=== PATIENT | female | born 1985 | race Caucasian/White ===

== ENCOUNTER 2020-11-20 09:32 | Emergency (ER) | payer OTHER, SELFPAY ==
[2020-11-20] VITALS (8 sets, daily range): BP systolic 122–164; BP diastolic 76–104; PULSE 69–110; RESP 15–20; TEMP 36.6; O2SAT 97–100
--- NOTE | 2020-11-20 09:30 | ECG_ITS ---
APPROVED REPORT Exam: Resting ECG HR:92 bpm ECG Measurements Heart Rate 92 AXES IL 108 P 67 QRSd 74 QRS 47 QT 350 T 48 QTc 432 Conclusion Sinus rhythm with short IL Junctional ST depression, probably normal Borderline ECG Electronically signed by : Bernabe Chery, 11/21/2020 08:54:39
--- NOTE | 2020-11-20 09:37 | XR_ITS ---
PROCEDURE: XR CHEST 2V CLINICAL HISTORY: chest pain COMPARISON: No exams were available for comparison FINDINGS: The cardiomediastinal silhouette and pulmonary vascularity are within normal limits. The lungs are clear without infiltrates, suspicious nodules, or pleural effusions. No acute bony abnormalities. IMPRESSION: No acute findings. Dictated by: Shahid Goodwin MD 11/20/2020 09:57 Shahid Goodwin MD in [place] 11/20/2020 09:57
--- NOTE | 2020-11-20 09:38 | HMH.EDCP ---
ED Disposition Clinical Impression: Atypical pneumonia, Palpitations Disposition: Home, Self-Care Condition on Discharge: Good Instructions: DI for Atypical Chest Pain, DI for Palpitations Prescriptions: predniSONE [Prednisone 20mg Tab] 20 mg PO DAILY #5 tab Transmission Status: [facility] by [facility] Azithromycin [Z-Oli 250mg Tab] 250 mg PO DIRECTED #6 tab [facility]: [facility] Referrals: Timmy Figueroa MD [Staff Physician] - PCP,No [Primary Care Provider] - Time of Disposition: 12:15 - Critical Care Critical Care Time: No Attestation: On , the high probability of a clinically significant, sudden or life threatening deterioration of the following system(s) required my full and direct attention, intervention and personal management. The time I documented below is in addition to time spent performing reported procedures but includes the following listed in this critical care notation. Medical Decision Making - Medical Records Medical records reviewed: Yes: I reviewed the patient's medical records. - Judah Inquiry Pt receiving controlled substance: No Vital Signs: 11/20/20 09:33 11/20/20 10:01 11/20/20 10:30 Temperature 97.8 F Temperature Source Oral Pulse Rate Pulse Rate [Left Radial] 110 H 78 74 Respiratory Rate 20 18 16 Blood Pressure Blood Pressure [Right Arm] 164/104 H 129/80 122/76 Blood Pressure Mean [Right Arm] 124 96 91 Blood Pressure Source Blood Pressure Source [Right Arm] Automatic Cuff Blood Pressure Position Blood Pressure Position [Right Arm] Sitting 02 Sat by Pulse Oximetry 99 97 98 Oxygen Delivery Method Room Air Room Air 11/20/20 11:30 11/20/20 12:00 11/20/20 12:30 Temperature Temperature Source Pulse Rate Pulse Rate [Left Radial] 69 77 78 Respiratory Rate 18 Blood Pressure Blood Pressure [Right Arm] 126/78 130/95 H Blood Pressure Mean [Right Arm] 94 106 Blood Pressure Source Blood Pressure Source [Right Arm] Blood Pressure Position Blood Pressure Position [Right Arm] 02 Sat by Pulse Oximetry 100 98 98 Oxygen Delivery Method Room Air 11/20/20 13:00 11/20/20 13:29 Temperature 97.8 F Temperature Source Oral Pulse Rate 81 Pulse Rate [Left Radial] 76 Respiratory Rate 15 Blood Pressure 134/94 H Blood Pressure [Right Arm] 134/94 H Blood Pressure Mean [Right Arm] 107 Blood Pressure Source Automatic Cuff Blood Pressure Source [Right Arm] Blood Pressure Position Sitting Blood Pressure Position [Right Arm] 02 Sat by Pulse Oximetry 99 Oxygen Delivery Method Room Air - Lab Data Lab Results 11/20/20 09:38: WBC 7.6, RBC 4.44, Hgb 12.9, Hct 42.3, MCV 95.1, MCH 29.0, MCHC 30.5 L, RDW 13.4, Plt Count 222, MPV 8.7, Neut % (Auto) 57.7, Lymph % (Auto) 32.0, [place] % (Auto) 6.9, Eos % (Auto) 2.6, Baso % (Auto) 0.8, Neut # (Auto) 4.4, Lymph # (Auto) 2.4, [place] # (Auto) 0.5, Eos # (Auto) 0.2, Baso # (Auto) 0.1 11/20/20 09:38: D-Dimer 0.72 H 11/20/20 09:38: Sodium 140, Potassium 3.7, Chloride 110 H, Carbon Dioxide 24, Anion Gap 9.7, BUN 13, Creatinine 0.60, Estimated Creat Clear 161, Estimated GFR 112, Est GFR ( Amer) 136, Glucose 91, Calcium 8.7, Troponin I < 0.01, TSH 0.66 11/20/20 12:15: Troponin I < 0.01 Result diagrams: 11/20/20 09:38 11/20/20 09:38 Orders (Tests/Meds): ED MEDICATIONS Discontinued Medications Generic Name Dose Route Start Last Admin Trade Name Ted PRN Reason Stop Dose Admin Aspirin 324 mg 11/20/20 09:36 11/20/20 09:51 Aspirin 81mg Chewable Tablet PO 11/20/20 09:37 324 mg ONCE ONE Administration Iopamidol 70 ml 11/20/20 11:31 11/20/20 11:32 Iopamidol-370 (76%);100ml Bottle IV 11/20/20 11:32 70 ml ONCE ONE Administration Nitroglycerin 0.4 mg 11/20/20 09:36 Nitroglycerin 0.4mg Sl Tablet SL 11/21/20 09:37 Q5MINP PRN Chest Pain Sodium Chloride 50 ml 11/20/20 11:31 11/20/20 11:
[2020-11-20 09:55] LABS: Basophils # 0.1 K/mm3 (0-0.2); Basophils % 0.8 % (0.1-2.0); Eosinophils # 0.2 K/mm3 (0.0-0.4); Eosinophils % 2.6 % (0.1-12.0); Hematocrit 42.3 % (37.0-47.0); Hemoglobin 12.9 g/dL (12.2-16.2); Lymphocytes # 2.4 K/mm3 (0.7-4.5); Mean Corpuscular HGB Conc 30.5 g/dL (31.8-35.4); Mean Corpuscular Volume 95.1 fl (81-99); Mean Platelet Volume 8.7 fl (7.4-10.4); Monocytes # 0.5 K/mm3 (0.1-1.0); Monocytes % 6.9 % (1.7-9.3); Neutrophils # 4.4 K/mm3 (1.8-7.8); Neutrophils % 57.7 % (37.0-80.0); Platelet Count 222 K/mm3 (142-424); Red Blood Count 4.44 M/mm3 (4.20-5.40); Red Cell Distribution Width 13.4 % (11.5-17.5); White Blood Count 7.6 K/mm3 (4.8-10.8)
[2020-11-20 10:07] LABS: Anion Gap 9.7 mEq/L (5-15); Blood Urea Nitrogen 13 mg/dl (7-17); Calcium 8.7 mg/dl (8.4-10.2); Carbon Dioxide 24 mmol/L (22.0-30.0); Chloride 110 mmol/L (98-107); Creatinine Clearance Estimated 161 mL/min (50-200); Estimated Glomerular Filt Rate 112 ml/min (>60); GFR (African American) 136 ML/MIN (>60); Glucose 91 mg/dl (74-100); Potassium 3.7 mmoL/L (3.5-5.1); Sodium 140 mmol/L (136-145)
[2020-11-20 10:12] LABS: D-Dimer 0.72 ug/mL (0.0-0.5)
[2020-11-20 10:22] LABS: Troponin I < 0.01 ng/ml (0.00-0.034)
[2020-11-20 10:39] LABS: Thyroid Stimulating Hormone 0.66 uIU/mL (0.465-4.68)
--- NOTE | 2020-11-20 10:39 | CT_ITS ---
PROCEDURE: CT ANGIO CHEST CLINCIAL INDICATION: elevated d-dimer, short of breath Chest pain and shortness of air COMPARISON: No exams were available for comparison TECHNIQUE: IV Contrast: 70ML Isovue 370 Axial images obtained with sagittal and coronal reformats. All CT scans at the facility use one or more dose reduction, viz: automated exposure control, ma/kV adjustment per patient size (including targeted exams where dose is matched to indication, i.e. head), or iterative reconstruction technique. FINDINGS: HEART AND MEDIASTINAL STRUCTURES: No evidence of pulmonary embolus, aortic aneurysm, or aortic dissection.. There are few small mediastinal lymph nodes. LUNGS AND PLEURAL SPACES: Minimal patchy density is present in the right upper lobe and right lower lobe centrally. No effusions. No lobar consolidation. BONY STRUCTURES: Mild degenerative change thoracic spine UPPER ABDOMEN: Unremarkable. ADDITIONAL FINDINGS: No other significant abnormalities. IMPRESSION: 1. No evidence of pulmonary embolus, aortic aneurysm, or aortic dissection. 2. Patchy atelectasis or infiltrate in the right upper lobe and right lower lobe. Dictated by: Shahid Goodwin MD 11/20/2020 12:01 Shahid Goodwin MD in [place] 11/20/2020 12:01
--- NOTE | 2020-11-20 11:34 | PC.NURSE ---
PATIENT GONE FOR CT SINCE 1100
--- NOTE | 2020-11-20 12:41 | PC.NURSE ---
Patient called RN to room, states she is having black floater in right eye now . Patient also concerned that she is going to be discharged while still having chest pain, MD Woodson notified with patients concerns.
[2020-11-20 12:53] LABS: Troponin I < 0.01 ng/ml (0.00-0.034)
--- NOTE | 2020-11-20 13:01 | PC.NURSE ---
MD Woodson at bedside discussing care.
== END 2020-11-20 13:30 | disposition home or self-care (01) ==
PROVIDERS: Emergency Provider Emergency Medicine
DX: J18.9 Pneumonia, unspecified organism (principal); Z20.822 Contact with and (suspected) exposure to COVID-19; R00.2 Palpitations
CPT/HCPCS: 71046; 71275; 80048; 84443; 84484; 85025; 85378; 93005; 99283; Q9967

== ENCOUNTER → 2020-11-21 12:20 | Outpatient (CLI) | payer OTHER, SELFPAY | PROVIDERS: Visit Provider Urology | DX: Z20.822 Contact with and (suspected) exposure to COVID-19 (principal); R06.00 Dyspnea, unspecified; R07.89 Other chest pain; R00.2 Palpitations; J18.9 Pneumonia, unspecified organism | CPT/HCPCS: 93270; U0003 ==

== ENCOUNTER 2020-11-29 23:34 | Emergency (ER) | payer OTHER, SELFPAY ==
[2020-11-29 23:35] VITALS: BP 124/93; PULSE 100; RESP 24; TEMP 36.6; O2SAT 99; BMI 29.2
--- NOTE | 2020-11-29 23:52 | XR_ITS ---
PROCEDURE: XR CHEST 2V CLINICAL HISTORY: soa Shortness of breath COMPARISON: CR XR CHEST 2V from 11/20/[address] ANGIO CHEST from 11/20/2020 FINDINGS: The cardiomediastinal silhouette and pulmonary vascularity are within normal limits. The lungs are clear without infiltrates, suspicious nodules, or pleural effusions. There is an electronic device along the left chest wall superiorly. No acute bony findings. IMPRESSION: No acute findings. Dictated by: Shahid Goodwin MD 11/30/2020 07:30 Shahid Goodwin MD in [place] 11/30/2020 07:30
--- NOTE | 2020-11-29 23:59 | HMH.EDSOB ---
ED Disposition Clinical Impression: Asthma with exacerbation Qualifiers: Asthma severity: moderate Asthma persistence: unspecified Qualified Code(s): J45.901 - Unspecified asthma with (acute) exacerbation Disposition: Home, Self-Care Condition on Discharge: Good Instructions: DI for Shortness of Breath Additional Instructions: fluids and use meds and see pcp for follow up Prescriptions: predniSONE [Prednisone 20mg Tab] 20 mg PO BID #10 tab Transmission Status: Pending to [facility] Referrals: PCP,No [Primary Care Provider] - - Critical Care Critical Care Time: No Attestation: On 11/29/20, the high probability of a clinically significant, sudden or life threatening deterioration of the following system(s) required my full and direct attention, intervention and personal management. The time I documented below is in addition to time spent performing reported procedures but includes the following listed in this critical care notation. Medical Decision Making - Medical Records Medical records reviewed: Yes: I reviewed the patient's medical records. - Judah Inquiry Pt receiving controlled substance: No Vital Signs: 11/29/20 23:35 Temperature 97.8 F Temperature Source Oral Pulse Rate [Right] 100 H Respiratory Rate 24 Blood Pressure [Right Arm] 124/93 H Blood Pressure Mean [Right Arm] 103 02 Sat by Pulse Oximetry 99 Oxygen Delivery Method Room Air - Lab Data Lab results reviewed: Yes: I reviewed the patient's lab results. Lab Results 11/29/20 23:59: WBC 8.5, RBC 4.48, Hgb 13.1, Hct 40.1, MCV 89.7, MCH 29.2, MCHC 32.5, RDW 13.5, Plt Count 198, MPV 8.7, Neut % (Auto) 54.8, Lymph % (Auto) 36.0, [place] % (Auto) 5.9, Eos % (Auto) 2.4, Baso % (Auto) 0.9, Neut # (Auto) 4.7, Lymph # (Auto) 3.1, [place] # (Auto) 0.5, Eos # (Auto) 0.2, Baso # (Auto) 0.1, ESR 16 11/29/20 23:59: Sodium 140, Potassium 3.8, Chloride 108 H, Carbon Dioxide 25, Anion Gap 10.8, BUN 12, Creatinine 0.70, Estimated Creat Clear 134, Estimated GFR 94, Est GFR ( Amer) 114, Glucose 87, Calcium 9.0, Total Bilirubin 0.2, AST 29, ALT 18, Alkaline Phosphatase 101, C-Reactive Protein 5.3 H, Total Protein 7.1, Albumin 4.2, Globulin 2.9, Albumin/Globulin Ratio 1.4, Procalcitonin < 0.030 11/29/20 23:59: Serum HCG, Qual Negative Result diagrams: 11/29/20 23:59 11/29/20 23:59 Orders (Tests/Meds): ED MEDICATIONS Generic Name Dose Route Start Last Admin Trade Name Freq PRN Reason Stop Dose Admin Sodium Chloride 1,000 mls @ 999 mls/hr 11/29/20 23:45 11/30/20 00:06 Sod Chlor 0.9% 1000ml Bag IV 11/30/20 00:45 999 mls/hr .Q1H1M SIS Administration Discontinued Medications Generic Name Dose Route Start Last Admin Trade Name Freq PRN Reason Stop Dose Admin Albuterol/Ipratropium 3 ml 11/29/20 23:52 Albuterol/Ipratropium 3 Ml Neb IH 11/29/20 23:53 ONCE ONE Methylprednisolone Sodium Succinate 125 mg 11/29/20 23:52 11/30/20 00:06 Methylprednisolone Sod Succ 125mg Vial IV 11/29/20 23:53 125 mg ONCE ONE Administration ORDERS Category Date Time Status Chest XR 2 view (NOT portable) [XR chest 2V] Stat Exams 11/29/20 23:52 Ordered - Radiology Data #1 Image(s): Chest Image Reviewed: Yes I reviewed the patient's radiology image Preliminary Findings: Normal/NAD Medical Decision Narrative: improved with resp treatment and labs and xray stable - will d/c on steroids and mdi Resp/SOB HPI - General Chief Complaint: Shortness of Breath/Dyspnea Stated Complaint: SOA Time Seen by Provider: 11/29/20 23:45 Mode of Arrival: Ambulatory Source of Information: Patient, Spouse, Medical Record Limitations: No Limitations Description of Symptoms (Recalled from ER Triage Doc. by RN): pt c/o SOA that has been going on since 11/20 was seen in er and dignosed with pneumonia follow up with cardio. 2 hrs prior to arrival soa became worse - History of Present Illness pt with increased sob tonight w
[2020-11-30 00:05] LABS: Basophils # 0.1 K/mm3 (0-0.2); Basophils % 0.9 % (0.1-2.0); Eosinophils # 0.2 K/mm3 (0.0-0.4); Eosinophils % 2.4 % (0.1-12.0); Hematocrit 40.1 % (37.0-47.0); Hemoglobin 13.1 g/dL (12.2-16.2); Lymphocytes # 3.1 K/mm3 (0.7-4.5); Mean Corpuscular HGB Conc 32.5 g/dL (31.8-35.4); Mean Corpuscular Hemoglobin 29.2 pg (27.0-31.2); Mean Corpuscular Volume 89.7 fl (81-99); Mean Platelet Volume 8.7 fl (7.4-10.4); Monocytes # 0.5 K/mm3 (0.1-1.0); Monocytes % 5.9 % (1.7-9.3); Neutrophils # 4.7 K/mm3 (1.8-7.8); Neutrophils % 54.8 % (37.0-80.0); Platelet Count 198 K/mm3 (142-424); Red Blood Count 4.48 M/mm3 (4.20-5.40); Red Cell Distribution Width 13.5 % (11.5-17.5); White Blood Count 8.5 K/mm3 (4.8-10.8)
[2020-11-30 00:16] LABS: HCG Qualitative, Serum Negative (Negative)
[2020-11-30 00:17] LABS: Alanine Aminotransferase 18 U/L (12-78); Albumin Level 4.2 g/dl (3.5-5.0); Albumin/Globulin Ratio 1.4 (1.1-1.8); Alkaline Phosphatase 101 U/L (38-126); Anion Gap 10.8 mEq/L (5-15); Aspartate Amino Transferase 29 U/L (14-36); Bilirubin,Total 0.2 mg/dl (0.2-1.3); Blood Urea Nitrogen 12 mg/dl (7-17); Carbon Dioxide 25 mmol/L (22.0-30.0); Chloride 108 mmol/L (98-107); Creatinine Clearance Estimated 134 mL/min (50-200); Estimated Glomerular Filt Rate 94 ml/min (>60); GFR (African American) 114 ML/MIN (>60); Globulin 2.9 g/dL (1.3-3.2); Glucose 87 mg/dl (74-100); Potassium 3.8 mmoL/L (3.5-5.1); Sodium 140 mmol/L (136-145); Total Protein,Serum 7.1 g/dl (6.3-8.2)
[2020-11-30 00:23] LABS: C-Reactive Protein 5.3 mg/L (0-4)
[2020-11-30 00:27] LABS: Erythrocyte Sedimentation Rate 16 mm/hr (0-20)
[2020-11-30 00:37] LABS: Procalcitonin < 0.030 ng/mL (0.0-2.0)
[2020-11-30 01:59] VITALS: BP 148/74; PULSE 97; RESP 14; TEMP 36.6; O2SAT 98
== END 2020-11-30 02:01 | disposition home or self-care (01) ==
PROVIDERS: Emergency Provider Emergency Medicine
DX: J45.901 Unspecified asthma with (acute) exacerbation (principal)
CPT/HCPCS: 71046; 80053; 84145; 84703; 85025; 85651; 86140; 96375; 99282

== ENCOUNTER → 2020-12-31 15:59 | Outpatient (CLI) | payer SELFPAY ==
[2020-12-31 16:22] LABS: Basophils # 0.1 K/mm3 (0-0.2); Basophils % 0.8 % (0.1-2.0); Eosinophils # 0.1 K/mm3 (0.0-0.4); Hemoglobin 13.3 g/dL (12.2-16.2); Lymphocytes # 2.3 K/mm3 (0.7-4.5); Lymphocytes % 25.8 % (10-50); Mean Corpuscular HGB Conc 31.6 g/dL (31.8-35.4); Mean Corpuscular Hemoglobin 28.7 pg (27.0-31.2); Mean Platelet Volume 8.6 fl (7.4-10.4); Monocytes # 0.4 K/mm3 (0.1-1.0); Monocytes % 4.7 % (1.7-9.3); Neutrophils # 5.9 K/mm3 (1.8-7.8); Neutrophils % 67.9 % (37.0-80.0); Platelet Count 245 K/mm3 (142-424); Red Blood Count 4.62 M/mm3 (4.20-5.40); Red Cell Distribution Width 13.8 % (11.5-17.5); White Blood Count 8.7 K/mm3 (4.8-10.8)
[2021-01-06 21:15] LABS: D001-IgE D pteronyssinus 1.33 kU/L (Class II); G002-IgE Bermuda Grass <0.10 kU/L (Class 0); G006-IgE Timothy Grass <0.10 kU/L (Class 0); I006-IgE Cockroach, German <0.10 kU/L (Class 0); Immunoglobulin E, Total 729 IU/mL (6-495); M001-IgE Penicillium chrysogen <0.10 kU/L (Class 0); M002-IgE Cladosporium herbarum <0.10 kU/L (Class 0); M003-IgE Aspergillus fumigatus <0.10 kU/L (Class 0); M006-IgE Alternaria alternata <0.10 kU/L (Class 0); T001-IgE Maple/Box Elder <0.10 kU/L (Class 0); T003-IgE Common Silver Birch <0.10 kU/L (Class 0); T006-IgE Cedar, Mountain <0.10 kU/L (Class 0); T007-IgE Oak, White <0.10 kU/L (Class 0); T008-IgE Elm, American <0.10 kU/L (Class 0); T010-IgE Walnut <0.10 kU/L (Class 0); T011-IgE Maple Leaf Sycamore <0.10 kU/L (Class 0); T014-IgE Cottonwood <0.10 kU/L (Class 0); T015-IgE Ash, White <0.10 kU/L (Class 0); T022-IgE Pecan, Hickory <0.10 kU/L (Class 0); T070-IgE White Mulberry <0.10 kU/L (Class 0); W001-IgE Ragweed, Short <0.10 kU/L (Class 0); W011-IgE Thistle, Russian <0.10 kU/L (Class 0); W014-IgE Pigweed, Common <0.10 kU/L (Class 0); W018-IgE Sheep Sorrel <0.10 kU/L (Class 0)
[2021-01-07 15:11] LABS: E072-IgE Mouse Urine 1.83 kU/L (Class III)
== END ==
PROVIDERS: Visit Provider Internal Medicine Pulmonary Disease
DX: J45.909 Unspecified asthma, uncomplicated (principal)
CPT/HCPCS: 36415; 82785; 85025; 86003

== ENCOUNTER → 2022-02-02 09:18 | Outpatient (CLI) | payer OTHER, SELFPAY ==
[2022-02-02 10:13] LABS: Basophils # 0.1 K/mm3 (0-0.2); Basophils % 1.5 % (0.1-2.0); Eosinophils # 0.2 K/mm3 (0.0-0.4); Eosinophils % 3.5 % (0.1-12.0); Hematocrit 41.3 % (37.0-47.0); Hemoglobin 13.4 g/dL (12.2-16.2); Lymphocytes # 1.9 K/mm3 (0.7-4.5); Lymphocytes % 27.8 % (10-50); Mean Corpuscular HGB Conc 32.3 g/dL (31.8-35.4); Mean Corpuscular Volume 89.8 fl (81-99); Mean Platelet Volume 9.4 fl (7.4-10.4); Monocytes # 0.4 K/mm3 (0.1-1.0); Monocytes % 5.3 % (1.7-9.3); Neutrophils # 4.2 K/mm3 (1.8-7.8); Platelet Count 216 K/mm3 (142-424); Red Cell Distribution Width 14.9 % (11.5-17.5); White Blood Count 6.7 K/mm3 (4.8-10.8)
[2022-02-02 10:28] LABS: Alanine Aminotransferase 27 U/L (12-78); Albumin Level 4.2 g/dl (3.5-5.0); Alkaline Phosphatase 96 U/L (38-126); Anion Gap 10.6 mEq/L (5-15); Aspartate Amino Transferase 28 U/L (14-36); Bilirubin,Unconjugated 0.3 mg/dL (0.0-1.1); Blood Urea Nitrogen 10 mg/dl (7-17); Calcium 8.8 mg/dl (8.4-10.2); Carbon Dioxide 26 mmol/L (22.0-30.0); Chloride 106 mmol/L (98-107); Chol/HDL Ratio 3.4 (1-3.5); Cholesterol 235 mg/dl (140-200); Estimated Glomerular Filt Rate 112 ml/min (>60); GFR (African American) 135 ML/MIN (>60); Glucose 94 mg/dl (74-100); HDL Cholesterol 69 mg/dl (40-60); Magnesium 1.9 mg/dl (1.6-2.3); Potassium 4.6 mmoL/L (3.5-5.1); Sodium 138 mmol/L (136-145); Total Protein,Serum 6.8 g/dl (6.3-8.2); Triglycerides 81 mg/dl (30-150); VLDL Cholesterol 16 mg/dL (0-40)
[2022-02-02 10:39] LABS: Direct LDL Cholesterol 150.65 mg/dL (100-129)
[2022-02-02 10:43] LABS: Free T4 (Free Thyroxine) 0.94 ng/dl (0.78-2.19)
[2022-02-02 10:50] LABS: Bilirubin,Total < 0.1 mg/dl (0.2-1.3)
[2022-02-02 10:58] LABS: Thyroid Stimulating Hormone 1.38 uIU/mL (0.465-4.68)
[2022-02-02 12:14] LABS: Bilirubin,Direct 0.1 mg/dl (0.0-0.4)
== END ==
LOC: LAB 09:19
PROVIDERS: Visit Provider Nurse Practitioner Family
DX: R06.00 Dyspnea, unspecified (principal); R07.89 Other chest pain; R00.2 Palpitations
CPT/HCPCS: 36415; 80048; 80061; 80076; 83735; 84439; 84443; 85025

== ENCOUNTER 2022-02-03 08:28 | Emergency (ER) | payer OTHER, SELFPAY ==
[2022-02-03 08:29] VITALS: BP 146/106; PULSE 92; RESP 18; TEMP 36.7; O2SAT 98; BMI 32.5
--- NOTE | 2022-02-03 08:33 | PC.NURSE ---
WARREN Frederick at BS
--- NOTE | 2022-02-03 08:39 | PC.NURSE ---
ED MD at
[2022-02-03 08:42] LABS: Coronavirus 19, PCR Not Detected (NotDetected); Influenza A, PCR Not Detected (NotDetected); Influenza B, PCR Not Detected (NotDetected)
--- NOTE | 2022-02-03 08:47 | HMH.EDGENADL ---
ED Disposition Clinical Impression: Asthma Disposition: Home, Self-Care Condition on Discharge: Good Instructions: Asthma -- Adult Additional Instructions: Please follow-up with your pulmonology team during your next scheduled appointment. 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 Please also take the prednisone starting on 02/06. Please return for any concerning symptoms such as chest pain, difficulty breathing or any other worsening symptoms. Prescriptions: predniSONE [Prednisone 10mg Tab Dose-Pack] 10 mg PO UD DOSE PK #1 predniSONE [Prednisone 10mg Tab Dose-Pack] 10 mg PO UD DOSE PK #1 Prescription Printed Referrals: Provider,Referral, [Primary Care Provider] - - Critical Care Critical Care Time: No Attestation: On 02/03/22, the high probability of a clinically significant, sudden or life threatening deterioration of the following system(s) required my full and direct attention, intervention and personal management. The time I documented below is in addition to time spent performing reported procedures but includes the following listed in this critical care notation. Medical Decision Making - Medical Records Medical records reviewed: Yes: I reviewed the patient's medical records. - Judah Inquiry Pt receiving controlled substance: No Vital Signs: 02/03/22 08:29 02/03/22 10:19 02/03/22 11:04 Temperature 98.1 F Temperature Source Oral Pulse Rate 88 71 Pulse Rate [Right Radial] 92 H Respiratory Rate 18 Blood Pressure Blood Pressure [Right Arm] 146/106 H Blood Pressure Mean [Right Arm] 119 Blood Pressure Source [Right Arm] Automatic Cuff Blood Pressure Position Blood Pressure Position [Right Arm] Sitting 02 Sat by Pulse Oximetry 98 98 99 Oxygen Delivery Method Room Air Room Air Room Air 02/03/22 11:29 Temperature 98.1 F Temperature Source Pulse Rate 66 Pulse Rate [Right Radial] Respiratory Rate 18 Blood Pressure 146/92 H Blood Pressure [Right Arm] Blood Pressure Mean [Right Arm] Blood Pressure Source [Right Arm] Blood Pressure Position Sitting Blood Pressure Position [Right Arm] 02 Sat by Pulse Oximetry Oxygen Delivery Method Room Air - Lab Data Lab results reviewed: Yes: I reviewed the patient's lab results. Lab Results 02/03/22 08:35: SARS-CoV-2 (PCR) Not detected, Influenza A Untype (PCR) Not detected, Influenza Type B (PCR) Not detected 02/03/22 10:34: WBC 6.8, RBC 4.74, Hgb 13.6, Hct 41.8, MCV 88.2, MCH 28.8, MCHC 32.6, RDW 14.9, Plt Count 232, MPV 9.4, Neut % (Auto) 66.0, Lymph % (Auto) 24.8, [place] % (Auto) 3.5, Eos % (Auto) 4.2, Baso % (Auto) 1.4, Neut # (Auto) 4.5, Lymph # (Auto) 1.7, [place] # (Auto) 0.2, Eos # (Auto) 0.3, Baso # (Auto) 0.1 02/03/22 10:34: Sodium 139, Potassium 4.0, Chloride 107, Carbon Dioxide 23, Anion Gap 13.0, BUN 9, Creatinine 0.60, Estimated Creat Clear 173, Estimated GFR 112, Est GFR ( Amer) 135, Glucose 97, Calcium 9.1, Total Bilirubin 0.3, AST 36 D, ALT 36 D, Alkaline Phosphatase 101, Troponin I < 0.01, Total Protein 7.5, Albumin 4.4, Globulin 3.1, Albumin/Globulin Ratio 1.4 Result diagrams: 02/03/22 10:34 02/03/22 10:34 Orders (Tests/Meds): ED MEDICATIONS Discontinued Medications Generic Name Dose Route Start Last Admin Trade Name Freq PRN Reason Stop Dose Admin Albuterol/Ipratropium 1 puff 02/03/22 09:08 02/03/22 09:05 Combivent 20mcg/100mcg Respimat Inhaler 02/03/22 09:09 1 puff ONCE ONE Administration Albuterol/Ipratropium 3 ml 02/03/22 10:24 02/03/22 10:25 Ipratropium/Albuterol 3 Ml Neb 02/03/22 10:25 3 ml ONCE ONE Administration Dexamethasone 10 mg 02/03/22 08:50 02/03/22 09:13 Dexamethasone 1mg/1ml Intensol 10ml Udc (Er) PO 02/03/22 08:51 Not Given ONCE ONE Dexamethasone 10 mg 02/03/22 09:09 02/03/22 09:10 Dexamethasone 4mg Tablet PO 02/03/22 09:10 10 mg ONCE ONE Administration ORDERS
--- NOTE | 2022-02-03 08:48 | XR_ITS ---
PROCEDURE INFORMATION: Exam: XR Chest Exam date and time: 02/03/2022 9:39 AM Age: 36 years old Clinical indication: Shortness of breath; Additional info: Dyspnea TECHNIQUE: Imaging protocol: XR of the chest. Views: 1 view. COMPARISON: CR XR CHEST 2V 11/29/2020 11:57 PM FINDINGS: Lungs: Unremarkable. No consolidation. Pleural spaces: Unremarkable. No pleural effusion. No pneumothorax. Heart/Mediastinum: Unremarkable. No cardiomegaly. Bones/joints: Unremarkable. IMPRESSION: No acute findings.
--- NOTE | 2022-02-03 08:48 | PC.NURSE ---
RT called for inhaler
--- NOTE | 2022-02-03 09:48 | HMH.ITSTN ---
This was not done within 30 minutes because osbaldo was scheduled in mammography until 9:30 and no one else was sent
--- NOTE | 2022-02-03 09:59 | PC.NURSE ---
ED MD at speaking with patient
--- NOTE | 2022-02-03 10:18 | INFXCTL.NOTE ---
Lab is going to come down and draw blood from pt
[2022-02-03 10:19] VITALS: PULSE 84; PULSE 88; O2SAT 98
--- NOTE | 2022-02-03 10:20 | ECG_ITS ---
APPROVED REPORT Exam: Resting ECG HR:74 bpm ECG Measurements Heart Rate 74 AXES DE 149 P 69 QRSd 88 QRS 55 QT 380 T 58 QTc 407 Conclusion SINUS RHYTHM NORMAL ECG UNCONFIRMED REPORT Electronically signed by : Bernabe Chery MD 02/05/2022 10:33:09
--- NOTE | 2022-02-03 10:23 | PC.NURSE ---
patient getting a NEB treatment at this time
--- NOTE | 2022-02-03 10:26 | PC.NURSE ---
RT at BS
[2022-02-03 10:46] LABS: Basophils # 0.1 K/mm3 (0-0.2); Basophils % 1.4 % (0.1-2.0); Eosinophils # 0.3 K/mm3 (0.0-0.4); Eosinophils % 4.2 % (0.1-12.0); Hematocrit 41.8 % (37.0-47.0); Hemoglobin 13.6 g/dL (12.2-16.2); Lymphocytes # 1.7 K/mm3 (0.7-4.5); Lymphocytes % 24.8 % (10-50); Mean Corpuscular HGB Conc 32.6 g/dL (31.8-35.4); Mean Corpuscular Hemoglobin 28.8 pg (27.0-31.2); Mean Corpuscular Volume 88.2 fl (81-99); Mean Platelet Volume 9.4 fl (7.4-10.4); Monocytes # 0.2 K/mm3 (0.1-1.0); Monocytes % 3.5 % (1.7-9.3); Neutrophils # 4.5 K/mm3 (1.8-7.8); Platelet Count 232 K/mm3 (142-424); Red Blood Count 4.74 M/mm3 (4.20-5.40); Red Cell Distribution Width 14.9 % (11.5-17.5); White Blood Count 6.8 K/mm3 (4.8-10.8)
[2022-02-03 10:55] LABS: Blood Urea Nitrogen 9 mg/dl (7-17); Carbon Dioxide 23 mmol/L (22.0-30.0); Chloride 107 mmol/L (98-107); Sodium 139 mmol/L (136-145)
[2022-02-03 10:56] LABS: Alanine Aminotransferase 36 U/L (12-78); Albumin Level 4.4 g/dl (3.5-5.0); Albumin/Globulin Ratio 1.4 (1.1-1.8); Alkaline Phosphatase 101 U/L (38-126); Aspartate Amino Transferase 36 U/L (14-36); Bilirubin,Total 0.3 mg/dl (0.2-1.3); Calcium 9.1 mg/dl (8.4-10.2); Creatinine Clearance Estimated 173 mL/min (50-200); Estimated Glomerular Filt Rate 112 ml/min (>60); GFR (African American) 135 ML/MIN (>60); Globulin 3.1 g/dL (1.3-3.2); Glucose 97 mg/dl (74-100); Total Protein,Serum 7.5 g/dl (6.3-8.2)
[2022-02-03 11:04] VITALS: PULSE 71; O2SAT 99
[2022-02-03 11:08] LABS: Troponin I < 0.01 ng/ml (0.00-0.034)
--- NOTE | 2022-02-03 11:10 | PC.NURSE ---
Dr Christina at BS
--- NOTE | 2022-02-03 11:19 | HMH.PULMCON ---
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 Patient denies any known sick contacts but denies any fevers or chills or productive phlegm. Denies any hemoptysis or chest pain. [facility] History *Have you ever received a pneumonia vaccine?: Yes *Have you received a flu vaccine this season?: Yes Other Surgeries: Yes: No Previous Surgery - *Social History Last grade of school completed: Advanced degree Smoking Status: Never smoker Alcohol Intake: never Alcohol Intake Frequency:: holidays/special occasions only Substance Use Type: denies use *Occupational Status:: employed *Travel in the last 8 weeks: None Family Hx:: Hypertension ROS - Cons Denies anorexia, Denies body ache(s), Denies chills - Eyes Denies change in vision - ENT Reports nasal congestion, Denies difficulty swallowing - Card Reports shortness of breath, Reports shortness of breath with activity - Resp Respiratory: Reports chest congestion, Reports cough, Reports non-productive cough, Reports dyspnea, Reports dyspnea on exertion, Denies excessive phlegm production, Denies cough with sputum production, Reports wheezing - GI Gastrointestingal: Denies: abdominal pain - [place] Musculoskeletal: Denies back pain - Psych Denies thoughts of hurting/killing others, Denies thoughts of hurting/killing yourself Meds Home Medications Medication Instructions Recorded Confirmed Type albuterol sulfate 90 mcg/actuation 1 inh INHALATION QID PRN 90 Days 01/26/22 02/02/22 Rx aerosol inhaler #8.5 g fluticasone 500 mcg-salmeterol 50 1 inh IH BID 90 Days #180 each 01/29/22 02/02/22 Rx mcg/dose blistr powdr for inhalation aspirin 81 mg tablet,delayed 81 mg PO DAILY #30 tab 02/02/22 02/02/22 Rx release atorvastatin 20 mg tablet 20 mg PO DAILY #30 tab 02/02/22 Rx bisoprolol fumarate 5 mg tablet 5 mg PO QDAY #30 tab 02/02/22 02/02/22 Rx predniSONE [Prednisone 10mg Tab 10 mg PO UD DOSE PK #1 02/03/22 Rx Dose-Pack] Allergies Allergy/AdvReac Type Severity Reaction Status Date / Time No Known Allergies Allergy Verified 02/02/22 08:54 Exam - Constitutional Constitutional:: Present: no acute distress, comfortable - HENMT Exam HENMT: Present: normocephalic - Eye Exam Eyes:: Present: normal appearance both eyes and related structures - Neck Exam Neck:: Present: normal visual inspection - Respiratory Exam Respiratory:: Present: able to speak in complete sentences, respiratory distress, wheezing - Cardiovascular Exam Cardiac:: Present: S1, S2 - GI Exam GI:: Present: soft - Skin Exam Skin: Present: warm, no rash - Neurological Exam Neurological: Present: alert, awake, normal cognition - Extremities Exam Extremities: Present: no cyanosis, no clubbing, no edema Internal Medicine - CN: Reslt - Labs CBC & Chem 7: 02/03/22 10:34 02/03/22 10:34 Labs: Short CBC 02/03/22 Range/Units 10:34 WBC 6.8 (4.8-10.8) K/mm3 Hgb 13.6 (12.2-16.2) g/dL Hct 41.8 (37.0-47.0) % Plt Count 232 (142-424) K/mm3 BMP 02/03/22 10:34 Sodium 139 Potassium 4.0 Chloride 107 Carbon Dioxide 23 BUN 9 Creatinine 0.60 Glucose 97 Calcium 9.1 Cardiac Enzymes 02/03/22 Range/Units 10:34 Troponin I < 0.01 (0.00-0.034) ng/ml Liver Function 02/03/22 Range/Units 10:34 Total Bilirubin 0.3 (0.2-1.3) mg/dl AST 36 D (14-36) U/L ALT 36 D (12-78) U/L Alkaline Phosphatase 101 (38-126) U/L Albumin 4.4 (3.5-5.0) g/dl Assessment and Plan - Assessment and plan all Dx Assessment and Plan for all problems:: #Acute Asthma exacerbation: 36-year-old female history of moderate persistent a
[2022-02-03 11:29] VITALS: BP 146/92; PULSE 66; RESP 18; TEMP 36.7; O2SAT 97
== END 2022-02-03 11:29 | disposition home or self-care (01) ==
PROVIDERS: Emergency Provider Student in an Organized Health Care Education/Training Program
DX: J45.909 Unspecified asthma, uncomplicated (principal); Z79.899 Other long term (current) drug therapy
CPT/HCPCS: 71045; 80053; 84484; 85025; 93005; 99283; C9803; U0003; U0005

== ENCOUNTER → 2022-02-18 13:45 | Outpatient (CLI) | payer OTHER, SELFPAY ==
--- NOTE | 2022-02-18 13:47 | CA_ITS ---
APPROVED REPORT EXAM: Comprehensive 2D, Doppler, and color-flow Echocardiogram Slab Grinder: Daniela Garnica, DONALD, RVS Ht: 5 ft 4 in Wt: 180lbs BSA: 1.87 BP: 180/90 mmHg Indications: HTN, CP, SOB 2D Dimensions IVSd 0.86 cm F: 0.6-1.0 LVEF (Visual) 51.80 % PWd 0.81 cm F: 0.6 - 1.0 LA Volume 61.40 mL LVDd 4.51 cm F: 3.9 - 5.3 LA Volume Index 32.358309 mL/m2 (M/F) 16-34 LVDs 3.32 cm F: 2.2 - 3.5 Aortic Root 2.35 cm F: 2.7 - 3.3 Left Atrium 3.21 cm F: 2.7 - 3.8 LVOT 2.08 cm (M/F) 1.5-2.5 M-Mode Dimensions RVDd 2.11 cm (0.9-2.6) LA Diam 4.05 cm (1.9-4.0) LVDd 4.90 cm (3.5-5.7) Ao Diam 2.87 cm (2.0-3.7) LVDs 3.43 cm (3.5-5.7) IVSd 1.00 cm (0.6-1.1) PWd 0.82 cm (0.6-1.1) EF (Teich) 57.00% EPSs 0.25 cm FS 30.00% EDV (Teich) 112.80 mL ESV (Teich) 48.50 mL LV Diastology E Decel Time 257.00 (160-240 msec) E/A Ratio 1.42 MED E' 8.60 (< 7 cm/sec) MED A' 9.30 cm/s E'/MED E' Ratio 10.84 (>14) LAT E' 12.70 (<10 cm/sec) LAT A' 10.50 cm/s E/LAT E' Ratio 7.34 (>14) Aortic Valve LVOT Max 123.00 (70-110 cm/s) LVOT VTI 26.99 cm AoV Peak Tiago. 117.00 (50-130 cm/s) AO Peak GR. 5.50 mmHg AO Mean GR. 2.80 (<5 mmHg) AO VTI 22.71 (18-25 cm) EVIE (VTI) 4.04 (2.5-4.5 cm2) Mitral Valve MV A Velocity 66.00 (40-130 cm/s) E/A Ratio 1.42 MV Decel. Time 257.00 (160-240 ms) MV Mean Gr. 3.20 (<2mmHg) Pulmonary Valve PV Peak Velocity 99.00 (50-150 cm/s) Tricuspid Valve TR P. Velocity 181.00 cm/s Left Ventricle Left atrium is normal size, left ventricle is normal size, there is no concentric left ventricular hypertrophy, estimated ejection fraction 55% with no regional wall motion abnormality, diastolic parameters are within normal range. Right Ventricle Right atrium and right ventricle are normal size and contractility. Aortic Valve Aortic valve is grossly normal, there is no aortic stenosis or aortic insufficiency. Mitral Valve Mitral valve grossly normal, there is trace mitral regurgitation. Tricuspid Valve Tricuspid grossly normal, there is trace tricuspid regurgitation, tricuspid regurgitation jet velocity is inadequate for calculation of the right ventricular systolic pressure. Pulmonic Valve Pulmonic valve is poorly visualized. Great Vessels Aortic root is normal size. Inferior vena cava is normal size with normal inspiratory collapse. Pericardium No significant pericardial effusion noted. Conclusion 1. Normal left ventricular size, preserved left ventricular systolic function, visually estimated ejection fraction 45% with no regional wall motion abnormality, diastolic parameters are within normal range. 2. Trace mitral and tricuspid regurgitation. 3. No significant pericardial effusion. 4. Inferior vena cava is normal size with normal inspiratory collapse. Electronically signed by : Umang Hutson MD 02/19/2022 12:34:44
--- NOTE | 2022-02-18 13:47 | CA_ITS ---
APPROVED REPORT Exam: Exercise Treadmill Technologist: Shikha Hurd, Ht: 5 ft 4 in Wt: 190 lbs BSA: 1.91 m2 HR: 78 bpm BP: 158/90 mmHg Rhythm: Ectopic artial rhythm, otherwise normal Medical History Medical History: HTN Medications: Aspirin,,,,, Albuterol,,,,, ADVAIR,,,,, BisOPROLOL Fumarate,,,,, Cardiac Risk Factors: HTN, FHX of CAD Stress Test Details Test: Reena HR Resting HR: 87 bpm Max Heart Rate (APMHR): 182.406083 bpm Max HR Achieved: 154 bpm Target HR (85% APMHR): 154.329780 bpm % of APMHR: 84.62 Recovery HR: 112 bpm BP Resting BP: 135/95 mmHg Max BP: 206/95 mmHg Recovery BP: 177.0/81.0 mmHg ECG Resting ECG: Ectopic artial rhythm, otherwise normal Clinical Exercise duration: 06:47 min Highest Stage Achieved: Exercise capacity: 7.0 METs Stress ECG Conclusion Pt exercised total of 6:47 into stage 3 of reena protocol. Pt experinced SOA, no CP noted. Ectopic artial rhythm went away with exercise. Rare PA. Allowing for motion artifact the ST response to exercise appears to be within normal. Normal GXT. GXT only. Electronically signed by : Umang Hutson MD 02/19/2022 11:30:31
== END ==
LOC: RT 13:47
PROVIDERS: Visit Provider Nurse Practitioner Family
DX: R06.00 Dyspnea, unspecified (principal); R07.9 Chest pain, unspecified; R00.2 Palpitations
CPT/HCPCS: 93017; 93306

== ENCOUNTER 2022-02-27 11:10 | Emergency (ER) | payer OTHER, SELFPAY ==
[2022-02-27 11:22] VITALS: BP 138/89; PULSE 79; RESP 17; TEMP 36.7; O2SAT 98; BMI 31.0
--- NOTE | 2022-02-27 11:47 | HMH.EDUTC ---
[facility] [place] Disposition Clinical Impression: Need for Tdap vaccination Laceration of left index finger Qualifiers: Encounter type: initial encounter Damage to nail status: without damage Foreign body presence: without foreign body Qualified Code(s): S61.211A - Laceration without foreign body of left index finger without damage to nail, initial encounter Disposition: Home, Self-Care Condition on Discharge: Good Instructions: How to Care for a Laceration After Repair, DI for Laceration Repair, DI for Laceration Repair -- Simple Additional Instructions: Keep the wound clean and dry. Keep a dressing on it if you are going to be getting it dirty. Watch the for signs of infection, such as redness, swelling, drainage, fever. etc. Take tylenol or ibuprofen for pain. Follow up with your regular doctor. Return in 10 to 12 days to have the sutures removed. GO TO THE ER FOR ANY WORSENING SYMPTOMS OR CONCERNS. Wear the alluminum form splint for the next couple of days to allow the wound to start healing well. Prescriptions: cephALEXin [cephALEXin 500mg capsule] 500 mg PO Q6H 10 Days #40 cap Transmission Status: Received by [id number] Referrals: Provider,Referral, [Primary Care Provider] - Time of Disposition: 12:19 Medical Decision Making - Medical Records Medical records reviewed: No: I reviewed the patient's medical records. - Judah Inquiry Pt receiving controlled substance: No Vital Signs: 02/27/22 11:22 02/27/22 12:24 Temperature 98.1 F 98.1 F Temperature Source Oral Pulse Rate 79 Pulse Rate [Left Radial] 79 Respiratory Rate 17 17 Blood Pressure 138/89 Blood Pressure [Right Arm] 138/89 Blood Pressure Mean [Right Arm] 105 02 Sat by Pulse Oximetry 98 Orders (Tests/Meds): ED MEDICATIONS Discontinued Medications Generic Name Dose Route Start Last Admin Trade Name Freq PRN Reason Stop Dose Admin Tetanus/Diphtheria Toxoids 0.5 ml 02/27/22 11:59 02/27/22 12:00 Tetanus-Diphth Toxoid, Adult 0.5ml Syr IM 02/27/22 12:00 0.5 ml .ONCE ONE Administration [facility] [place] HPI - General Stated complaint: lt hand lac 02/27/22 Time Seen by Provider: 02/27/22 11:49 Description of Symptoms (Recalled from Triage Doc. by RN): patient comes in for cut on left index finger. patient was attempting to open a pair of gardening red and sliced her finger HEENT Symptoms (Recalled from RN notes): No Resp Symptoms (Recalled from RN notes): No Skin Symptoms (Recalled from RN notes): Yes MS Symptoms (Recalled from RN notes): No Functional Status (Recalled from RN notes): wnl - History of Present Illness Provider Complaint: She was using a knife to cut off the packaging on a a new pair of garden red when she slipped and cut her left index finger. She has a laceration on the medial aspect of that finger. Her tetanus immunization is not up to date. - Related Data Home Medications Medication Instructions Recorded Confirmed bupropion HCl 150 mg tablet,12 hr 150 mg PO BID each 02/22/22 02/22/22 sustained-release Previous Rx's Medication Instructions Recorded albuterol sulfate 90 mcg/actuation 1 inh INHALATION QID PRN 90 Days 01/26/22 aerosol inhaler #8.5 g aspirin 81 mg tablet,delayed 81 mg PO DAILY #30 tab 02/02/22 release atorvastatin 40 mg tablet 40 mg PO DAILY #90 tab 02/22/22 bisoprolol fumarate 10 mg tablet 10 mg PO QDAY #90 tab 02/22/22 cephALEXin [cephALEXin 500mg 500 mg PO Q6H 10 Days #40 cap 02/27/22 capsule] Allergies Allergy/AdvReac Type Severity Reaction Status Date / Time No Known Allergies Allergy Verified 02/22/22 10:29 - Worker's Comp Is this a Worker's Comp case?: No [facility] History - Hepatitis A Screen Attestation statement:: This patient has been screened for Hepatitis A risk factors. I have reviewed the patient's past medical history: Yes Other Surgeries: Yes: No Previous Surgery - Social History Smoking Status: Lianne
[2022-02-27 12:24] VITALS: BP 138/89; PULSE 79; RESP 17; TEMP 36.7
== END 2022-02-27 12:25 | disposition home or self-care (01) ==
PROVIDERS: Emergency Provider Nurse Practitioner Family
DX: S61.211A Laceration without foreign body of left index finger without damage to nail, initial encounter (principal); R07.9 Chest pain, unspecified; R06.00 Dyspnea, unspecified; Z79.51 Long term (current) use of inhaled steroids; Z79.52 Long term (current) use of systemic steroids; Z79.899 Other long term (current) drug therapy; Z82.49 Family history of ischemic heart disease and other diseases of the circulatory system
CPT/HCPCS: 12001; 90471; 90714; 99213; G0463

== ENCOUNTER 2022-05-13 07:38 | Emergency (ER) | payer OTHER, SELFPAY ==
[2022-05-13 07:39] VITALS: BP 160/99; PULSE 104; RESP 21; TEMP 36.4; O2SAT 99; BMI 30.9
--- NOTE | 2022-05-13 07:51 | ECG_ITS ---
APPROVED REPORT Exam: Resting ECG HR:103 bpm ECG Measurements Heart Rate 103 AXES ND 144 P 81 QRSd 88 QRS 77 QT 340 T 56 QTc 400 Conclusion SINUS TACHYCARDIA ABNORMAL RHYTHM ECG UNCONFIRMED REPORT Electronically signed by : Bernabe Chery MD 05/14/2022 17:10:12
[2022-05-13 08:00] VITALS: BP 158/87; PULSE 98; RESP 22; O2SAT 99
--- NOTE | 2022-05-13 08:08 | XR_ITS ---
FINAL REPORT CLINICAL HISTORY: soa, ASTHMA COMPARISON: 02/03/2022 FINDINGS: Two views of the chest were obtained. The heart size and pulmonary vascularity are within normal limits. The mediastinum is normal. No acute pulmonary abnormality is identified. There is no pneumothorax. The bony thorax is intact. IMPRESSION: No active cardiopulmonary disease. Reviewed, Interpreted and Dictated by Jose Chong III, MD Transcribed by Christopher Thurston Authenticated and [facility]
[2022-05-13 08:25] LABS: Basophils # 0.1 K/mm3 (0-0.2); Eosinophils # 0.2 K/mm3 (0.0-0.4); Eosinophils % 1.8 % (0.1-12.0); Hematocrit 43.7 % (37.0-47.0); Hemoglobin 13.7 g/dL (12.2-16.2); Lymphocytes # 2.3 K/mm3 (0.7-4.5); Lymphocytes % 26.6 % (10-50); Mean Corpuscular HGB Conc 31.4 g/dL (31.8-35.4); Mean Corpuscular Hemoglobin 29.7 pg (27.0-31.2); Mean Corpuscular Volume 94.8 fl (81-99); Mean Platelet Volume 9.3 fl (7.4-10.4); Monocytes # 0.4 K/mm3 (0.1-1.0); Monocytes % 4.8 % (1.7-9.3); Neutrophils # 5.7 K/mm3 (1.8-7.8); Neutrophils % 65.8 % (37.0-80.0); Platelet Count 242 K/mm3 (142-424); Red Blood Count 4.61 M/mm3 (4.20-5.40); Red Cell Distribution Width 14.1 % (11.5-17.5); White Blood Count 8.7 K/mm3 (4.8-10.8)
--- NOTE | 2022-05-13 08:33 | HMH.EDGENADL ---
Discharge Plan Disposition Patient Disposition: Home, Self-Care Condition: Good Prescriptions Prescriptions: No Action aspirin [Adult Low Dose Aspirin] 81 mg tablet,delayed release (DR/EC) 81 mg PO DAILY Qty: 30 5RF bupropion HCl 150 mg tablet sustained-release 12 hr 150 mg PO BID Label Comments: TAKE 1 TABLET BY MOUTH TWICE DAILY atorvastatin 40 mg tablet 40 mg PO DAILY Qty: 90 3RF bisoprolol fumarate 10 mg tablet 10 mg PO QDAY Qty: 90 5RF albuterol sulfate 90 mcg/actuation HFA aerosol inhaler 1 inh INHALATION QID PRN (Reason: shortness of breath or wheezing) 90 Days Qty: 8.5 2RF cephalexin 500 MG capsule 500 mg PO Q6H 10 Days Qty: 40 0RF Referrals Follow up/Referrals: Darren Christina MD [Physician] - See instructions (moderate, poorly controlled asthma follow up) Activity Restrictions/Add. Instructions Additional Instructions/Restrictions: Follow-up with pulmonology, referral has been placed for them to call you and schedule an appointment. Take Zyrtec once daily, Advair as prescribed, and albuterol as needed for symptoms. If you have any other concerning signs or symptoms, return to the emergency department for further evaluation, or your primary care provider or your mis specialist. Clinical Impressions Clinical Impression: Asthma exacerbation Qualifiers: Asthma severity: mild Asthma persistence: persistent Qualified Code(s): J45.31 - Mild persistent asthma with (acute) exacerbation Discharge ED Provider: Amadeo Hagan General Adult HPI General Chief complaint: Shortness of Breath/Dyspnea Stated complaint: SOA Time Seen by Provider: 05/13/22 08:00 Mode of Arrival: Ambulatory Source of Information: Patient Limitations: No Limitations Description of Symptoms (Recalled from ER Triage Doc. by RN): c/o soa, pt states that she woke up and couldnt catch her breath, she used 2 of her inhalers she has for asthma with no improvement. PT states that she has anxiety as well and she feels maybe she is having a panic attack as well. History of Present Illness HPI narrative: This is a 36-year-old female with history of asthma and anxiety who is presenting with shortness of breath. Patient states that she recently moved to [place] and since that time, she has had worsening shortness of breath and asthma symptoms. She also states that she has been noncompliant with her medications, stating that she should be on Advair, albuterol, allergy medication (Zyrtec). Patient states that she follows with pulmonology here and has availability to schedule an appointment in the next couple of days. Shortness of breath is exertional, but not associated with chest pain, nausea, vomiting, diaphoresis, abdominal pain, back pain, cough, fevers, chills, or any other concerning symptoms. Related Data Home Medications Medication Instructions Recorded Confirmed bupropion HCl 150 mg tablet,12 hr 150 mg PO BID 02/22/22 02/22/22 sustained-release Previous Rx's Medication Instructions Recorded albuterol sulfate 90 mcg/actuation 1 inh inhalation QID PRN shortness 01/26/22 aerosol inhaler of breath or wheezing 90 days #8.5 grams aspirin 81 mg tablet,delayed 81 mg PO DAILY #30 tabs 02/02/22 release (Adult Low Dose Aspirin) atorvastatin 40 mg tablet 40 mg PO DAILY #90 tabs 02/22/22 bisoprolol fumarate 10 mg tablet 10 mg PO QDAY #90 tabs 02/22/22 cephalexin 500 mg capsule 500 mg PO Q6H 10 days #40 caps 02/27/22 Allergies Allergy/AdvReac Type Severity Reaction Status Date / Time No Known Allergies Allergy Verified 02/22/22 10:29 [facility] Medical History (Updated 05/13/22 @ 08:41 by Amadeo Hagan MD) Chest pain Dyspnea Social History Smoking Status: Current every day smoker alcohol intake: never substance use type: denies use current occupational status: employed ROS Obtained: Yes All systems reviewed & no additional complaints except as documented Physical Exam
[2022-05-13 08:59] VITALS: BP 126/95; PULSE 96; RESP 18; O2SAT 97
[2022-05-13 09:12] LABS: Alanine Aminotransferase 41 U/L (12-78); Albumin Level 4.5 g/dl (3.5-5.0); Albumin/Globulin Ratio 1.3 (1.1-1.8); Alkaline Phosphatase 134 U/L (38-126); Anion Gap 12.7 mEq/L (5-15); Aspartate Amino Transferase 42 U/L (14-36); Blood Urea Nitrogen 13 mg/dl (7-17); Calcium 9.2 mg/dl (8.4-10.2); Carbon Dioxide 24 mmol/L (22.0-30.0); Chloride 104 mmol/L (98-107); Creatinine Clearance Estimated 140 mL/min (50-200); Estimated Glomerular Filt Rate 94 ml/min (>60); GFR (African American) 113 ML/MIN (>60); Globulin 3.4 g/dL (1.3-3.2); Glucose 114 mg/dl (74-100); Potassium 3.7 mmoL/L (3.5-5.1); Sodium 137 mmol/L (136-145); Total Protein,Serum 7.9 g/dl (6.3-8.2)
[2022-05-13 09:13] LABS: Bilirubin,Total < 0.1 mg/dl (0.2-1.3)
[2022-05-13 09:18] LABS: D-Dimer 0.47 ug/mL (0.0-0.5)
[2022-05-13 09:30] VITALS: BP 145/108; PULSE 92; RESP 18; O2SAT 98
[2022-05-13 09:33] LABS: Troponin I < 0.01 ng/ml (0.00-0.034)
--- NOTE | 2022-05-13 09:42 | PC.NURSE ---
AT GOING OVER D/C INFORMATION
[2022-05-13 09:44] VITALS: BP 145/108; PULSE 105; RESP 18; TEMP 36.4; O2SAT 98
== END 2022-05-13 09:46 | disposition home or self-care (01) ==
PROVIDERS: Emergency Provider Emergency Medicine
DX: J45.31 Mild persistent asthma with (acute) exacerbation (principal); Z72.0 Tobacco use
CPT/HCPCS: 71046; 80053; 84484; 85025; 85378; 93005; 94640; 96374; 99284

== ENCOUNTER 2022-05-24 15:40 | Emergency (ER) | payer OTHER, SELFPAY ==
[2022-05-24 16:10] VITALS: BP 136/92; PULSE 95; RESP 20; TEMP 36.7; O2SAT 98; BMI 30.5
--- NOTE | 2022-05-24 16:42 | EXP.UTC ---
Discharge Plan Disposition Patient Disposition: Home, Self-Care Condition: Good Prescriptions Prescriptions: No Action aspirin [Adult Low Dose Aspirin] 81 mg tablet,delayed release (DR/EC) 81 mg PO DAILY Qty: 30 5RF bupropion HCl 150 mg tablet sustained-release 12 hr 150 mg PO BID Label Comments: TAKE 1 TABLET BY MOUTH TWICE DAILY atorvastatin 40 mg tablet 40 mg PO DAILY Qty: 90 3RF ipratropium-albuterol 0.5 mg-3 mg(2.5 mg base)/3 mL solution for nebulization 3 ml inhalation Q6H PRN (Reason: shortness of breath or wheezing) Qty: 90 3RF fluticasone propion-salmeterol [Advair Diskus] 500-50 mcg/dose blister with device 1 inh inhalation BID Qty: 180 3RF albuterol sulfate 90 mcg/actuation HFA aerosol inhaler 2 inh INHALATION QID PRN (Reason: shortness of breath or wheezing) 90 Days Qty: 8.5 2RF prednisone 20 mg tablet 40 mg PO DAILY 5 Days Qty: 10 0RF montelukast 10 mg tablet 10 mg PO DAILY 90 Days Qty: 90 3RF fluticasone propionate [Flonase Allergy Relief] 50 mcg/actuation spray,suspension 1 spray intranasal BID 90 Days Qty: 16 3RF Rx Instructions: administer into each nostril cephalexin 500 MG capsule 500 mg PO Q6H 10 Days Qty: 40 0RF Referrals Follow up/Referrals: Provider,Referral, MD [Primary Care Provider] - See instructions Activity Restrictions/Add. Instructions Additional Instructions/Restrictions: Suture instructions: ?You have required stitches today. Please read the following instructions so you know how to care for them: ?1. Keep wound area dry for the first 24 hours. 2?? May clean gently with mild soap and water, after 48 hours to prevent crusting over suture knots. 3. You may shower if your provider gives permission but do not take a bath until the skin is healed.. 4. Never leave a wet dressing or Band-Aid on your stitches as this allows bacteria to reach the area and may cause infection. Band-aids can cause the wound to sweat and not recommended to wear for long periods of time Watch for signs of infection: ? Increasing redness, tenderness or warmth around the suture site ? Unusual swelling around the site ? Appearance of pus around each suture or any red streaks ? Fever If you develop any of the above signs or symptoms of infection, Follow up with Family Physician immediately 5. Suture removal in _-12___days 6. Return to [facility] or follow up with family doctor for removal. This can be done by any medical provider dur?ing regular hours on Tuesday through Tuesday, by appointment. Clinical Impressions Clinical Impression: Laceration Instructions Patient Instructions: DI for Laceration Repair Discharge ED Provider: Jennifer Feliciano [facility] [place] HPI General Stated complaint: AO 05/24@1515@[facility] L Index finger Mode of Arrival: Ambulatory Source of Information: Patient Limitations: No Limitations Time Seen by Provider: 05/24/22 16:20 Description of Symptoms (Recalled from Triage Doc. by RN): PATIENT C/O LACERATION TO LEFT RING FINGER AFTER CUTTING IT WITH A KNIFE WHILE SLICING ONIONS TODAY HEENT Symptoms (Recalled from RN notes): No Resp Symptoms (Recalled from RN notes): No Skin Symptoms (Recalled from RN notes): Yes MS Symptoms (Recalled from RN notes): No Functional Status (Recalled from RN notes): WNL History of Present Illness Provider Complaint: Patient states that she was cutting up some onions when the knife slipped and cut the tip of her left ring finger States that she looked at it and noticed she thought she may need sutures so she came in Related Data Home Medications Medication Instructions Recorded Confirmed bupropion HCl 150 mg tablet,12 hr 150 mg PO BID 02/22/22 05/13/22 sustained-release Previous Rx's Medication Instructions Recorded aspirin 81 mg tablet,delayed 81 mg PO DAILY #30 tabs 02/02/22 release (Adult Low Dose Aspirin) atorvastatin 40 mg tablet 40 mg PO DAILY #90 tabs 02/22/22 cephalexin 500 mg capsule 500 mg P
[2022-05-24 16:43] VITALS: BP 141/73; PULSE 101; RESP 18; TEMP 36.9; O2SAT 98
== END 2022-05-24 16:50 | disposition home or self-care (01) ==
PROVIDERS: Emergency Provider Nurse Practitioner
DX: S61.215A Laceration without foreign body of left ring finger without damage to nail, initial encounter (principal); W26.0XXA Contact with knife, initial encounter; Y93.G1 Activity, food preparation and clean up; Y92.010 Kitchen of single-family (private) house as the place of occurrence of the external cause
CPT/HCPCS: 12001; 99213; G0463

== ENCOUNTER → 2022-05-31 08:04 | Outpatient (CLI) | payer OTHER, SELFPAY ==
[2022-05-31 08:45] VITALS: PULSE 66; PULSE 70
== END ==
LOC: RT 08:05
PROVIDERS: Visit Provider Internal Medicine Pulmonary Disease
DX: R06.09 Other forms of dyspnea (principal)
CPT/HCPCS: 94060; 94640; 94727; 94729

== ENCOUNTER 2023-11-01 19:43 | Emergency (ER) | payer SELFPAY ==
[2023-11-01 19:44] VITALS: BP 139/101; PULSE 105; RESP 20; TEMP 36.8; O2SAT 98; BMI 33.6
--- NOTE | 2023-11-01 19:52 | XR_ITS ---
PROCEDURE INFORMATION: Exam: XR Chest Exam date and time: 11/01/2023 7:55 PM Age: 37 years old Clinical indication: Dyspnea TECHNIQUE: Imaging protocol: Radiologic exam of the chest. Views: 1 view. COMPARISON: CR XR CHEST 2V 05/13/2022 8:21 AM FINDINGS: Lungs: Unremarkable. No consolidation. Pleural spaces: Unremarkable. No pleural effusion. No pneumothorax. Heart/Mediastinum: Unremarkable. No cardiomegaly. Bones/joints: Unremarkable. IMPRESSION: No acute findings.
[2023-11-01] MEDS: IPRATROPIUM/ALBUTEROL 3 ML NEB IH (20:01)
[2023-11-01] MEDS: DEXAMETHASONE 4MG/ML 1ML VIAL 10 MG IM (20:03)
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
[2023-11-01 20:05] VITALS: PULSE 108; PULSE 109
[2023-11-01 20:44] VITALS: BP 130/80; PULSE 85; RESP 18; TEMP 36.8; O2SAT 99
== END 2023-11-01 20:45 | disposition home or self-care (01) ==
PROVIDERS: Emergency Provider Student in an Organized Health Care Education/Training Program
DX: R06.02 Shortness of breath; T59.811A Toxic effect of smoke, accidental (unintentional), initial encounter; J45.41 Moderate persistent asthma with (acute) exacerbation
CPT/HCPCS: 71045; 96372; 99283

== ENCOUNTER 2024-06-20 08:54 | Emergency (ER) | payer SELFPAY ==
--- NOTE | 2024-06-20 09:05 | ED_ITS ---
Discharge Plan Disposition Patient Disposition: Home, Self-Care Condition: Good Prescriptions Prescriptions: New albuterol sulfate [Ventolin HFA] 90 mcg/actuation HFA aerosol inhaler 2 puff inhalation Q6H PRN (Reason: shortness of breath or wheezing) Qty: 6.7 5RF albuterol sulfate 2.5 mg /3 mL (0.083 %) solution for nebulization 2.5 mg inhalation Q6H PRN (Reason: shortness of breath or wheezing) Qty: 90 0RF azithromycin [Zithromax] 250 mg tablet 250 mg PO UD DOSE PK Qty: 6 0RF Rx Instructions: Take two (2) tablets today, then one (1) tablet days #2 thru #5 methylprednisolone 4 mg Tablets,Dose Pack 4 mg PO DIRECTED 6 Days Qty: 21 0RF Rx Instructions: Take 1 pack as directed for 6 days No Action lisdexamfetamine [Vyvanse] 70 mg Capsule 70 mg PO DAILY Referrals Follow up/Referrals: Provider,Referral, MD [Primary Care Provider] - See instructions Activity Restrictions/Add. Instructions Additional Instructions/Restrictions: Drink plenty of fluids. Take tylenol or ibuprofen for pain or fever. Take the medications as directed. Follow up with your regular doctor. GO TO THE ER FOR ANY WORSENING SYMPTOMS Clinical Impressions Clinical Impression: Asthma exacerbation Instructions Patient Instructions: Asthma -- Adult, Albuterol Print Language Print Language: Danish Discharge ED Provider: Marciano Redd [facility] HPI General Stated complaint: soa, asthma Time Seen by Provider: 06/20/24 09:05 Related Data Home Medications ?Medication ?Instructions ?Recorded ?Confirmed lisdexamfetamine 70 mg capsule 70 mg PO DAILY 06/20/24 06/20/24 (Vyvanse) Previous Rx's ?Medication ?Instructions ?Recorded albuterol sulfate 2.5 mg/3 mL 2.5 mg (3 mL) inhalation Q6H PRN 06/20/24 (0.083 %) solution for nebulization shortness of breath or wheezing #90 mL albuterol sulfate 90 mcg/actuation 2 puff inhalation Q6H PRN 06/20/24 aerosol inhaler (Ventolin HFA) shortness of breath or wheezing #6.7 grams azithromycin 250 mg tablet 250 mg PO UD DOSE PK #6 tabs 06/20/24 (Zithromax) methylprednisolone 4 mg tablets in 4 mg PO DIRECTED 6 days #21 tabs 06/20/24 a dose pack Allergies Allergy/AdvReac Type Severity Reaction Status Date / Time No Known Allergies Allergy Verified 05/14/24 16:17 [facility] Disclaimer: The information contained in this section may have been updated after the patient was seen, as this information can be updated by other users. Medical History (Updated 06/20/24 @ 09:26 by Marciano Redd APRN) Dyspnea on exertion Elevated IgE level Eosinophilia Allergic rhinitis Moderate persistent asthma with (acute) exacerbation Asthma exacerbation Moderate persistent asthma Seasonal allergies Exertional shortness of breath Shortness of breath Dyspnea Chest pain Surgical History No history of previous surgery Family History Other Hypertension Social History Smoking Status: Never smoker alcohol intake: never substance use type: denies use current occupational status: employed Travel in the last 8 weeks: None ROS Obtained: Yes All systems reviewed & no additional complaints except as documented Constitutional Constitutional: Reports poor appetite Eyes Eyes: Reports system reviewed and no additional complaints, except as documented ENT Ears, Nose, Mouth, and Throat: Reports as per HPI Cardiovascular Cardiovascular: Reports system reviewed and no additional complaints, except as documented and Denies chest pain Respiratory Respiratory: Denies shortness of breath, Reports chest congestion, Reports cough, Denies stridor and Denies wheezing Gastrointestinal Gastrointestingal: Reports system reviewed and no additional complaints, except as documented; Denies abdominal pain, diarrhea or vomiting Musculoskeletal Musculoskeletal: Reports system reviewed and no additional complaints, except as documented and Denies arthralgias Integumentary/Breasts Skin/Breast: Reports system reviewed and no additional complaints, except as documented and Denies rash Neurologic Neurologic: Denies paresthesias Allergic/Immunologic Allergic/Immunologic: Denies wheezing Physical Exam General General appearance: alert and in no apparent distress Head Head exam: atraumatic, normocephalic and normal inspection Eye Eye exam: Present normal appearance, PERRL and EOMI ENT ENT exam: Present normal exam, normal oropharynx, mucous membranes moist, TM's normal bilaterally and normal external ear exam Neck Neck exam: Present normal inspection, full ROM and trachea midline; Absent meningismus or lymphadenopathy Chest Chest inspection: Present normal inspection and symmetric chest wall rise; Absent tenderness Respiratory Respiratory exam: Present normal lung sounds bilaterally; Absent respiratory distress Cardiovascular Cardiovascular exam: Present regular rate and normal rhythm; Absent JVD Abdominal Exam Abdominal exam: Present soft and normal bowel sounds; Absent distention, tenderness or guarding Extremities Exam Extremities exam: Present normal inspection, full ROM and normal capillary refill; Absent calf tenderness Back Exam Back exam: Present normal inspection; Absent tenderness Neurological Exam Neurological exam: Present alert and oriented X3 Psychiatric Psychiatric exam: Present normal affect and normal mood Skin Skin exam: Present warm, dry, intact and normal color Lymphatic Lymphatic Findings: no adenopathy Medical Decision Making Medical Records Medical records reviewed: No I reviewed the patient's medical records. Screening: Per USPSTF and CDC recommendations, given the prevalence of disease in our region, it is our hospital?s policy to screen for HIV and viral Hepatitis for all patients aged 18 and over and those with ongoing risk factors. Judah Inquiry Pt receiving controlled substance: No
[2024-06-20 09:14] VITALS: BP 137/89; PULSE 104; RESP 20; TEMP 36.8; O2SAT 97; BMI 32.5
[2024-06-20 09:27] VITALS: BP 137/89; PULSE 104; RESP 20; TEMP 36.8
== END 2024-06-20 09:30 | disposition home or self-care (01) ==
PROVIDERS: Emergency Provider Nurse Practitioner Family
DX: J45.901 Unspecified asthma with (acute) exacerbation (principal)
CPT/HCPCS: 99213; G0381

== ENCOUNTER 2024-08-08 14:19 | Emergency (ER) | payer SELFPAY ==
--- NOTE | 2024-08-08 | ECG_ITS ---
APPROVED REPORT Exam: Resting ECG HR:133 bpm ECG Measurements Heart Rate 133 AXES AZ 198 P 93 QRSd 79 QRS 80 QT 276 T 74 QTc 354 Conclusion SINUS TACHYCARDIA WITH OCCASIONAL ECTOPIC PREMATURE COMPLEXES MINIMAL ST DEPRESSION [0.025+ mV ST DEPRESSION] Electronically signed by : JANE MC, 08/09/2024 15:27:47
[2024-08-08 14:19] VITALS: BP 179/94; PULSE 149; RESP 24; TEMP 36.6; O2SAT 98; BMI 32.5
--- NOTE | 2024-08-08 14:25 | HMH.EDGENADL ---
Discharge Plan Disposition Patient Disposition: Home, Self-Care Condition: Good Prescriptions Prescriptions: New budesonide-formoterol 80-4.5 mcg/actuation HFA aerosol inhaler 2 inh inhalation BID Qty: 10.2 2RF prednisone 50 mg tablet 50 mg PO DAILY 5 Days Qty: 5 0RF No Action lisdexamfetamine [Vyvanse] 70 mg Capsule 70 mg PO DAILY albuterol sulfate [Ventolin HFA] 90 mcg/actuation HFA aerosol inhaler 2 puff inhalation Q6H PRN (Reason: shortness of breath or wheezing) Qty: 6.7 5RF albuterol sulfate 2.5 mg /3 mL (0.083 %) solution for nebulization 2.5 mg inhalation Q6H PRN (Reason: shortness of breath or wheezing) Qty: 90 0RF azithromycin [Zithromax] 250 mg tablet 250 mg PO UD DOSE PK Qty: 6 0RF Rx Instructions: Take two (2) tablets today, then one (1) tablet days #2 thru #5 methylprednisolone 4 mg Tablets,Dose Pack 4 mg PO DIRECTED 6 Days Qty: 21 0RF Rx Instructions: Take 1 pack as directed for 6 days Referrals Follow up/Referrals: Provider,Referral, MD [Primary Care Provider] - See instructions Activity Restrictions/Add. Instructions Additional Instructions/Restrictions: As we discussed I have sent a 5-day course of steroids and a metered-dose inhaler for disease-modifying therapy for your asthma to your pharmacy. Please take the steroids till they are gone. Again as we discussed please follow-up with your PCP as scheduled and reconnect with pulmonology to follow you as an outpatient. Turn to the ER for any worsening signs or symptoms remainder Clinical Impressions Clinical Impression: Asthma exacerbation Print Language Print Language: Colombian Discharge ED Provider: Amadeo Hagan General Adult HPI <PADMINI Perez - Last Filed: 08/08/24 16:37> General Chief complaint: Shortness of Breath/Dyspnea Stated complaint: asthma attack Time Seen by Provider: 08/08/24 14:25 History of Present Illness HPI narrative: Patient presents for evaluation of an asthma exacerbation. 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 She has had difficulty maintaining consistent primary care because of this. However she has a longstanding history of asthma but currently is only on albuterol metered-dose inhalers and nebulizer machines. She primarily utilizes her nebulizer machine when she is home and utilizes her metered-dose inhaler when she is traveling. However the last 2 days patient has had increasing asthma symptoms and has gone through all of her home nebulizers and today has utilize her metered-dose inhaler 20 times emptying the canister. She denies however fever chills hemoptysis hematochezia melena nausea diarrhea but endorses nonproductive cough and wheezing. Related Data Home Medications ?Medication ?Instructions ?Recorded ?Confirmed lisdexamfetamine 70 mg capsule 70 mg PO DAILY 06/20/24 06/20/24 (Vyvanse) Previous Rx's ?Medication ?Instructions ?Recorded albuterol sulfate 2.5 mg/3 mL 2.5 mg (3 mL) inhalation Q6H PRN 06/20/24 (0.083 %) solution for nebulization shortness of breath or wheezing #90 mL albuterol sulfate 90 mcg/actuation 2 puff inhalation Q6H PRN 06/20/24 aerosol inhaler (Ventolin HFA) shortness of breath or wheezing #6.7 grams azithromycin 250 mg tablet 250 mg PO UD DOSE PK #6 tabs 06/20/24 (Zithromax) methylprednisolone 4 mg tablets in 4 mg PO DIRECTED 6 days #21 tabs 06/20/24 a dose pack budesonide-formoterol HFA 80 2 inh inhalation BID #10.2 grams 08/08/24 mcg-4.5 mcg/actuation aerosol inhaler prednisone 50 mg tablet 50 mg PO DAILY 5 days #5 tabs 08/08/24 Allergies Allergy/AdvReac Type Severity Reaction Status Date / Time No Known Allergies Allergy Verified 05/14/24 16:17 [facility] <PADMINI Perez - Last Filed: 08/08/24 16:37> [facility] Disclaimer: The information contained in this section may have been updated after the patient was seen, as this information can be updated by other users. Medical History (Updated 08/08/24 @ 16:25 by PADMINI Perez) Dyspnea on exertion Elevated IgE level Eosinophilia Allergic rhinitis Moderate persistent asthma with (acute) exacerbation Asthma exacerbation Moderate persistent asthma Seasonal allergies Exertional shortness of breath Shortness of breath Dyspnea Chest pain Surgical History No history of previous surgery Family History Other Hypertension Social History Smoking Status: Unknown if ever smoked alcohol intake: never substance use type: denies use current occupational status: employed Other Medical History Have you received the Flu Vaccine for this season: Yes Have you received the Pneumonia Vaccine: Yes <PADMINI Perez - Last Filed: 08/08/24 16:37> ROS Obtained: Yes Systems reviewed as appropriate & no additional complaints except as documented Physical Exam <PADMINI Perez - Last Filed: 08/08/24 16:37> General General appearance: alert and anxious Head Head exam: atraumatic and normal inspection Respiratory Respiratory exam: Present normal lung sounds bilaterally Cardiovascular Cardiovascular exam: Present tachycardia and +S2 Neurological Exam Neurological exam: Present alert and oriented X3 Medical Decision Making <PADMINI Perez - Last Filed: 08/08/24 16:37> Medical Records Medical records reviewed: Yes I reviewed the patient's medical records. Screening: Per USPSTF and CDC recommendations, given the prevalence of disease in our region, it is our hospital?s policy to screen for HIV and viral Hepatitis for all patients aged 18 and over and those with ongoing risk factors. Judah Inquiry Pt receiving controlled substance: No Vital Signs: 08/08/24 14:19 08/08/24 14:31 08/08/24 15:01 Temperature 97.8 F Temperature Source Oral Pulse Rate 116 H 100 H Pulse Rate [Radial] 149 H Respiratory Rate 24 22 17 Blood Pressure 138/91 H 122/71 Blood Pressure [Right Arm] 179/94 H Blood Pressure Mean [Right Arm] 122 Blood Pressure Source [Right Arm] Automatic Cuff Blood Pressure Position [Right Arm] Sitting 02 Sat by Pulse Oximetry 98 96 97 Oxygen Delivery Method Room Air Room Air 08/08/24 15:30 08/08/24 16:37 Temperature 97.8 F Temperature Source Oral Pulse Rate 89 90 Pulse Rate [Radial] Respiratory Rate 13 18 Blood Pressure 125/80 149/75 H Blood Pressure [Right Arm] Blood Pressure Mean [Right Arm] Blood Pressure Source [Right Arm] Blood Pressure Position [Right Arm] 02 Sat by Pulse Oximetry 96 Oxygen Delivery Method Room Air Lab Data Lab results reviewed: Yes I reviewed the patient's lab results. Lab Results 08/08/24 14:21: Hepatitis C Antibody Non reactive, HIV 1&2 Antibody Rapid Nonreactive Orders (Tests/Meds): ORDERS Category Date Time Status HIV (1&2) Antibody Rapid Stat Lab 08/08/24 14:21 Completed Hep C Ab with Reflex to RNA Stat Lab 08/08/24 14:21 Completed Medical Decision Narrative: In summary patient is a 38-year-old female who presents to the emergency department for evaluation of asthma exacerbation. Patient is initially hypertensive with a blood pressure 179/94 with a heart rate of 149 currently breathing 24 times a minute satting at 98% on room air upon arrival, and afebrile at 97.8. Physical exam was remarkable for increased work of breathing with accessory muscle use, tachycardia on the bedside EKG but satting at 95% on room air currently. There is no audible wheezing at bedside. Auscultation the breath sounds reveals end expiratory wheezes in all 4 [place] but breath sounds are heard clearly to the bases with good air entry.. 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 Initial workup was considered with labs and imaging however again patient has no red flags that this is anything other than a classic asthma exacerbation and are thus deferred for now. Initial interventions include IV Solu-Medrol as patient has already had too much albuterol today. Upon repeat evaluation patient had complete resolution of her wheezing and increased work of breathing after ministration of steroids thus further workup and investigation is not required. Patient is to follow-up PCP within 48 hours and to refer herself back to pulmonology which she has failed to keep follow-up appointments for. I have counseled her for approximately 30 minutes on the risks of utilizing a rescue inhaler as primary medication instead of disease modifying medication. Patient verbalized understanding and agreement. To that end we have sent a prescription for Dulera to her pharmacy a 5-day course of steroids and strict return precautions. Thus patient is appropriate for discharge at this time <Amadeo Hagan MD - Last Filed: 08/09/24 07:12> Vital Signs: 08/08/24 14:19 08/08/24 14:31 08/08/24 15:01 Temperature 97.8 F Temperature Source Oral Pulse Rate 116 H 100 H Pulse Rate [Radial] 149 H Respiratory Rate 24 22 17 Blood Pressure 138/91 H 122/71 Blood Pressure [Right Arm] 179/94 H Blood Pressure Mean [Right Arm] 122 Blood Pressure Source [Right Arm] Automatic Cuff Blood Pressure Position [Right Arm] Sitting 02 Sat by Pulse Oximetry 98 96 97 Oxygen Delivery Method Room Air Room Air 08/08/24 15:30 08/08/24 16:37 Temperature 97.8 F Temperature Source Oral Pulse Rate 89 90 Pulse Rate [Radial] Respiratory Rate 13 18 Blood Pressure 125/80 149/75 H Blood Pressure [Right Arm] Blood Pressure Mean [Right Arm] Blood Pressure Source [Right Arm] Blood Pressure Position [Right Arm] 02 Sat by Pulse Oximetry 96 Oxygen Delivery Method Room Air Lab Data Lab Results 08/08/24 14:21: Hepatitis C Antibody Non reactive, HIV 1&2 Antibody Rapid Nonreactive Orders (Tests/Meds): ORDERS Category Date Time Status HIV (1&2) Antibody Rapid Stat Lab 08/08/24 14:21 Completed Hep C Ab with Reflex to RNA Stat Lab 08/08/24 14:21 Completed Medical Decision Narrative: In summary patient is a 38-year-old female who presents to the emergency department for evaluation of asthma exacerbation. Patient is initially hypertensive with a blood pressure 179/94 with a heart rate of 149 currently breathing 24 times a minute satting at 98% on room air upon arrival, and afebrile at 97.8. Physical exam was remarkable for increased work of breathing with accessory muscle use, tachycardia on the bedside EKG but satting at 95% on room air currently. There is no audible wheezing at bedside. Auscultation the breath sounds reveals end expiratory wheezes in all 4 [place] but breath sounds are heard clearly to the bases with good air entry.. 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 Initial workup was considered with labs and imaging however again patient has no red flags that this is anything other than a classic asthma exacerbation and are thus deferred for now. Initial interventions include IV Solu-Medrol as patient has already had too much albuterol today. Upon repeat evaluation patient had complete resolution of her wheezing and increased work of breathing after ministration of steroids thus further workup and investigation is not required. Patient is to follow-up PCP within 48 hours and to refer herself back to pulmonology which she has failed to keep follow-up appointments for. I have counseled her for approximately 30 minutes on the risks of utilizing a rescue inhaler as primary medication instead of disease modifying medication. Patient verbalized understanding and agreement. To that end we have sent a prescription for Dulera to her pharmacy a 5-day course of steroids and strict return precautions. Thus patient is appropriate for discharge at this time I was consulted by the WILLAM, and we discussed the complexity of the problems being addressed. I approved the treatment and management plan for this patient's care in the Emergency Department, thus performing a substantive portion of the medical decision making. Amadeo Hagan MD Critical Care <PADMINI Perez - Last Filed: 08/08/24 16:37> Critical Care Time Critical Care Time: No
[2024-08-08 14:31] VITALS: BP 138/91; PULSE 116; RESP 22; O2SAT 96
--- OUTSIDE RECORDS SUMMARY | 2024-08-08 14:35 | XMS_ITS | Encounter Summary ---
[facility] Address [address] [place] [id number] Care Team Providers Care Mud Logger Name Role Phone Provider, No Known Primary Care Provider Unavail able Encounter Details Date Type Department Care Team (Late st Contact Info) Description 07/30/2024 Telephone [facility] [address] [facility] [address] [place] [address] Jannette Napoles, EBENEZER [address] [facility] [address] [place] [address] Social History Tobacco Use Types Packs/Day Years Used Date Smoking Tobacco: Former Cigarettes Q uit: 09/12/2011 Alcohol Use Standard Drinks/Week Comments Yes 0 (1 standard drink = 0.6 oz pur e alcohol) OCCASIONAL Abuse Screen Answer Date Recorded Feels Unsafe at Home or Work/School no 07/24/2024 Feels Threatened by Someone no 07/13 Does Anyone Try to Keep You From Having Contact with Others or Doing Things Outside Your Home? no 07/24/2024 Physical Signs of Abuse Present no 07/24/2024 Comments No Sex and Gender Information Value Date Recorded Sex Assigned at Not on file Legal Sex Female 10:06 AM EDT Gender Identity Not on file Sexual Orientation Not on file documented as of this encounter Miscellaneous Notes * Telephone Encounter - Sophie Hopkins MA - 07/30/2024 11:10 AM EST left voicemail for patient asking if they had been to any fascility outside of [facility] for any cardiac care previously so i can get records prior to their appointment with our office. documented in this encounter Plan of Treatment Not on file documented as of this encounter Visit Diagnoses Not on filedocumented in this encounter Care Teams Mud Logger Relationship Specialty Start Date End Date Provider, [place] [address] PCP - General 01/26/17 documented as of this encounter
--- OUTSIDE RECORDS SUMMARY | 2024-08-08 14:35 | XMS_ITS | Clinical Summary ---
Author Organization [facility] Address [address] [place] [address] Care Team Providers Care Chemical Analyst Name Role Phone Provider, No Known Primary Care Provider Unavail able Allergies No known active allergies Medications albuterol sulfate HFA 108 (90 Base) MCG/ACT inhaler Inhale 2 puffs Every 4 (Four) Hours As Needed for Wheezing. Active ibuprofen (ADVIL,MOTRIN) 600 MG tablet Take 1 tablet by mouth Every 6 (Six) Hours As Needed for Mild Pain. 20 tablet 07/24/20 24 Active ondansetron ODT (ZOFRAN-ODT) [address] 1 tablet on the tongue 4 (Four) Times a Day As Needed for Nausea or Vomiting. 12 tablet 07/24/20 24 Active hydrOXYzine (ATARAX) 25 MG tablet Take 1 tablet by mouth 3 (Three) Times a Day As Needed for Anxiety. 12 tablet 07/24/20 24 Active lisdexamfetamine (VYVANSE) 40 MG capsule Take 40 mg by mouth Every Morning. 024 Discontinued ondansetron (ZOFRAN) 4 MG tablet Take 1 tablet by mouth Every 6 (Six) Hours As Needed for Nausea or Vomiting. 8 tablet 01/27/20 17 024 Discontinued pantoprazole (PROTONIX) 40 MG EC tablet Take 1 tablet by mouth Daily. 20 tablet 01/27/20 17 024 Discontinued HYDROcodone-acetam inophen (NORCO) 5-325 MG per tablet Take 1 tablet by mouth Every 6 (Six) Hours As Needed for Moderate Pain (4-6) for up to 15 doses. 15 tablet 02/15/20 17 024 Discontinued Active Problems Problem Noted Date Diagnosed Date Allergic rhinitis 07/30/2024 PAC (premature atrial contraction) 07/30/2024 Palpitations 07/30/2024 PVCs (premature ventricular contractions) 2023 Attention deficit hyperactivity disorder 017 Hypertensive disorder 05/06/2017 Encounters Date Type Department Care Team Description 07/30/2024 Telephone [facility] [address] [facility] [address] [place] [id number] Jannette Napoles APRN 07/24/2024 7:22 PM EST - 07/24/2024 10:51 PM EST Emergency [facility] [address] [place] [address] Raoul Nieto MD Chest pain, unspecified type (Primary Dx); Palpitations; Positive D dimer Discharge Disposition: Home or Self Care 07/24/2024 Travel from Last 3 Months Social History Tobacco Use Types Packs/Day Years [...] on file Sexual Orientation Not on file Last Filed Vital Signs Vital Sign Reading Time Taken Comments Blood Pressure 127/81 07/24/2024 9:59 PM EST Pulse 63 07/24/2024 9:59 PM EST Temperature 36.6 ??C (97.8 ??F) 07/24/2024 6:53 PM ES T Respiratory Rate 18 07/24/2024 6:53 PM EST Oxygen Saturation 94% 07/24/2024 9:59 PM EST Inhaled Oxygen Concentration - - Weight 85.7 kg (189 lb) 07/24/2024 6:53 PM EST Height 162.6 cm (5' 4 ) 07/24/2024 6:53 PM EST Body Mass Index 32.44 07/24/2024 6:53 PM EST Plan of Treatment Health Maintenance Due Date Last Done Comments Annual Gynecologic Pelvic an d Breast Exam 1983 BMI FOLLOWUP 1983 Pneumococcal Vaccine 0-64 (1 of 2 - PCV) 11/17/1989 ANNUAL PHYSICAL 01/26/2017 HEPATITIS C SCREENING 01/26/2017 PAP SMEAR 01/26/2017 MAMMOGRAM 2023 INFLUENZA VACCINE 04/12/2024 07/07/2021, , 08/30/2019, Additional history exists COVID-19 Vaccine (2 - 2023-2 5 season) 2024 05/12/2021 TDAP/TD VACCINES (4 - Td or Tdap) 02/28/2032 02/27/2022, 09/19/2018, 04/05/2012 Procedures Procedure Name Priority Date/Time Associated Diagnosis Comments CT ANGIOGRAM CHEST PULMONARY EMBOLISM STAT 07/24/2024 9:25 PM EST ECG 12-LEAD STAT 07/24/2024 8:47 PM EST URINALYSIS, MICROSCOPIC ONLY STAT 07/24/2024 8:17 PM EST FENTANYL, URINE STAT 07/24/2024 8:17 PM EST URINE DRUG SCREEN STAT 07/24/2024 8:1 7 PM EST URINALYSIS W/ MICROSCOPIC IF INDICATED (NO CULTURE) STAT 07/24/2024 8:17 PM EST , URINE STAT 07/24/2024 8:17 PM EST HIGH SENSITIVITIY TROPONIN T 2HR STAT 07/24/2024 8:00 PM EST COVID-19/FLUA&B/RSV, STAFF COMMAND AND CONTROL OFFICER SWAB IN TRANSPORT MEDIA 1 HR TAT STAT 07/24/2024 7:59 PM EST COVID PRE-OP / PRE-PROCEDURE SCREENING ORDER (NO ISOLATION) STAT 07/24/2024 7:59 PM EST XR CHEST 1 VW STAT 07/24/2024 7:38 PM EST LIGHT BLUE TOP STAT 07/24/2024 7:03 PM EST TIRADO TOP STAT 07/24/2024 7:03 PM EST GOLD TOP - SST STAT 07/24/2024 7:03 PM EST LAVENDER TOP STAT 07/24/2024 7:03 PM EST DK GREEN TOP STAT 07/24/2024 7:03 PM EST CBC AND DIFFERENTIAL STAT 07/24/2024 7:03 PM EST TSH STAT 07/24/2024 7:03 PM EST MAGNESIUM STAT 07/24/2024 7:03 PM EST SALICYLATE LEVEL STAT 07/24/2024 7:03 PM EST ETHANOL STAT 07/24/2024 7:03 PM EST ACETAMINOPHEN LEVEL STAT 07/24/2024 7 :03 PM EST D-DIMER, QUANTITATIVE STAT 07/24/2024 7:03 PM EST CBC WITH AUTO DIFFERENTIAL STAT 07/24/2024 7:03 PM EST B-TYPE NATRIURETIC PEPTIDE STAT 07/24/2024 7:03 PM EST LIPASE STAT 07/24/2024 7:03 PM EST COMPREHENSIVE METABOLIC PANEL STAT 07/24/2024 7:03 PM EST TROPONIN STAT 07/24/2024 7:03 PM EST RAINBOW DRAW STAT 07/24/2024 7:03 PM EST ECG 12-LEAD STAT 07/24/2024 6:58 PM EST from Last 3 Months Results * CT Angiogram Chest Pulmonary Embolism (07/24/2024 9:25 PM EST) Anatomical Region Laterality Modality Chest N/A Computed Tomogra phy 07/24/2024 9:33 PM EST Impressions 07/24/2024 9:39 PM EST Impression: No pulmonary embolism. No acute intrathoracic abnormality. Electronically Signed: Sanjiv Gomes DO 07/24/2024 9:39 PM EST Workstation ID: [id number] Narrative 07/24/2024 9:[address] ANGIOGRAM CHEST PULMONARY EMBOLISM Date of Exam: 07/24/2024 9:23 PM EST Indication: Severe pleuritic left-sided chest pain, positive dimer. Comparison: None available. Technique: Axial CT images were obtained of the chest after the uneventful intravenous administration of 80 cc Isovue-370 utilizing pulmonary embolism protocol. ??Reconstructed coronal and sagittal images were also obtained. Automated exposure control and iterative construction methods were used. Findings: Pulmonary arteries:Adequate opacification of the pulmonary arteries. No evidence of acute pulmonary embolism. Aorta: Unremarkable. Lungs and Pleura: The lungs are clear. No pleural effusion or pneumothorax. The airways are patent. Mediastinum/Nelia: No lymphadenopathy. No suspicious mass. Heart: Normal in size. No pericardial effusion. Normal RV/LV ratio. Soft Tissue: Unremarkable. Upper Abdomen: Unremarkable. Bones: No acute osseous abnormality. Procedure Note Sanjiv Gomes DO - 07/24/2024 CT ANGIOGRAM CHEST PULMONARY EMBOLISM Date of Exam: 07/24/2024 9:23 PM EST Indication: Severe pleuritic left-sided chest pain, positive dimer. Comparison: None available. Technique: Axial CT images were obtained of the chest after the uneventfulintravenous administration of 80 cc Isovue-370 utilizing pulmonaryembolism protocol. Reconstructed coronal and sagittal images were alsoobtained. Automated exposure control and iterative construction methods were used. Findings: Pulmonary arteries:Adequate opacification of the pulmonary arteries. Noevidence of acute pulmonary embolism. Aorta: Unremarkable. Lungs and Pleura: The lungs are clear. No pleural effusion orpneumothorax. The airways are patent. Mediastinum/Nelia: No lymphadenopathy. No suspicious mass. Heart: Normal in size. No pericardial effusion. Normal RV/LV ratio. Soft Tissue: Unremarkable. Upper Abdomen: Unremarkable. Bones: No acute osseous abnormality. IMPRESSION: Impression: No pulmonary embolism. No acute intrathoracic abnormality. Electronically Signed: Sanjiv Gomes DO 07/24/2024 9:39 PM EST Workstation ID: [id number] us Raoul Nieto MD IMG CT ORDERABLES Final Result * ECG 12 Lead ED Triage Standing Order; Chest Pain (07/24/2024 8:47 PM EST) Only the most recent of2 resultswithin the time period is included. QT Interval 426 ms ECG QTC Interval 462 ms ECG 07/24/2024 8:47 PM EST 07/27/2024 9:42 AM EST Narrative ECG - 07/27/2024 9:42 AM EST Test Reason : ED Triage Standing Order~ Blood Pressure : ?? */* ?? mmHG Vent. Rate : ??71 BPM ? Atrial Rate : ??71 BPM ?? P-R Int : 152 ms ?QRS Dur : ??88 ms ?QT Int : 426 ms ? P-R-T Axes : ??67 ??24 ??28 degrees ??QTcB Int : 462 ms Sinus rhythm with premature atrial complexes Otherwise normal ECG When compared with ECG of 24-Jul-2024 18:58, (Unconfirmed) premature atrial complexes are now present Confirmed by RAOUL NIETO ([id number]) on 07/27/2024 9:42:49 AM Referred By: ?Confirmed By: RAOUL NIETO Procedure Note Raoul Nieto MD - 07/27/2024 Test Reason : ED Triage Standing Order~ Blood Pressure : */* mmHG Vent. Rate : 71 BPM Atrial Rate : 71 BPM P-R Int : 152 ms QRS Dur : 88 ms QT Int : 426 ms P-R-T Axes : 67 24 28 degrees QTcB Int : 462 ms Sinus rhythm with premature atrial complexes Otherwise normal ECG When compared with ECG of 24-Jul-2024 18:58, (Unconfirmed) premature atrial complexes are now present Confirmed by RAOUL NIETO ([id number]) on 07/27/2024 9:42:49 AM Referred By: Confirmed By: RAOUL NIETO us Raoul Nieto MD ECG ORDERABLES Final Re sult Performing Organization Address City/[facility]/ZIP Co de Phone Number ECG * (ABNORMAL) Urinalysis, Microscopic Only - Urine, Clean Catch (07/24/2024 8:17 PM EST) RBC, UA 3-5(A) None Seen, 0-2 /HPF 07/24/2024 8:28 PM EST [facility] WBC, UA 0-2 None Seen, 0-2 /HPF 07/24/2024 8:28 PM EST [facility] Bacteria, UA None Seen None Seen, Trace /HPF 07/24/2024 8:28 PM EST [facility] Squamous Epithelial Cells, UA 0-2 None Seen, 0-2 /HPF 07/24/2024 8:28 PM EST [facility] Hyaline Casts, UA None Seen 0 - 6 /LPF 07/24/2024 8:28 PM EST [facility] Methodology Automated Microscopy 07/24/2024 8:28 PM EST [facility] Urine Urine specimen obtained by clean catch procedure / Unknown Collection / Unknown 07/24/2024 8:17 PM EST 07/24/2024 8:22 PM EST Raoul Nieto MD URINE ORDERABLES Final R esult [facility]
[address] [place] [address], [place] [phone] * (ABNORMAL) Urinalysis With Microscopic If Indicated (No Culture) - Urine, Clean Catch (07/24/2024 8:17 PM EST) Color, UA Yellow Yellow, Straw 07/24/2024 8:27 PM EST [facility] Appearance, UA Clear Clear 07/24/2024 8:27 PM EST [facility] pH, UA 5.5 5.0 - 8.0 07/24/2024 8:27 PM EST [facility] Specific [place], UA 1.015 1.001 - 1.030 07/24/2024 8:27 PM EST [facility] Glucose, UA Negative Negative 07/24/2024 8:27 PM EST [facility] Ketones, UA Negative Negative 07/24/2024 8:27 PM EST [facility] Bilirubin, UA Negative Negative 07/24/2024 8:27 PM EST [facility] Blood, UA Moderate (2+)(A) Negative 07/24/2024 8:27 PM EST [facility] Protein, UA Negative Negative 07/24/2024 8:27 PM EST [facility] Leuk Esterase, UA Negative Negative 07/24/2024 8:27 PM EST [facility] Nitrite, UA Negative Negative 07/24/2024 8:27 PM EST [facility] Urobilinogen, UA 0.2 E.U./dL 0.2 - 1.0 E.U./dL 07/24/2024 8:27 PM EST [facility] Urine Urine specimen obtained by clean catch procedure / Unknown Collection / Unknown 07/24/2024 8:17 PM EST 07/24/2024 8:22 PM EST us Raoul Nieto MD URINE ORDERABLES Final R esult [facility]
[address] [place] [address], [place] [phone] * (ABNORMAL) Urine Drug Screen - Urine, Clean Catch (07/24/2024 8:17 PM EST) [facility] THC, Screen, Urine Positive(A) Negative 07/24 8:34 PM EST [facility] Phencyclidine (PCP), Urine Negative Negative 07/24/2024 8:34 PM EST [facility] Cocaine Screen, Urine Negative Negative 07/24/2024 8:34 PM EST [facility] Methamphetamine, Ur Negative Negative 07/24/2024 8:34 PM EST [facility] Opiate Screen Negative Negative 07/24/2024 8:34 PM EST [facility] Amphetamine Screen, Urine Negative Negative 07/24/2024 8:34 PM EST [facility] Benzodiazepine Screen, Urine Negative Negative 07/24/2024 8:34 PM EST [facility] Tricyclic Antidepressants Screen Negative Negative 07/24/2024 8:34 PM EST [facility] Methadone Screen, Urine Negative Negative 07/24/2024 8:34 PM EST [facility] Barbiturates Screen, Urine Negative Negative 07/24/2024 8:34 PM [facility] Oxycodone Screen, Urine Negative Negative 07/24/2024 8:34 PM [facility] Buprenorphine, Screen, Urine Negative Negative 07/24/2024 8:34 PM [facility] Urine Urine specimen obtained by clean catch procedure / Unknown Collection / Unknown 07/24/2024 8:17 PM EST 07/24/2024 8:22 PM EST [facility] - 07/24/2024 8:34 PM EST Cutoff For Drugs Screened: Amphetamines ? 500 ng/ml Barbiturates ? 200 ng/ml Benzodiazepines ?150 ng/ml Cocaine ?150 ng/ml Methadone ?200 ng/ml Opiates ?100 ng/ml Phencyclidine ? 25 ng/ml THC ? 50 ng/ml Methamphetamine ?500 ng/ml Tricyclic Antidepressants ??300 ng/ml Oxycodone ?100 ng/ml Buprenorphine ? 10 ng/ml The normal value for all drugs tested is negative. This report includes unconfirmed screening results, with the cutoff values listed, to be used for medical treatment purposes only. ??Unconfirmed results must not be used for non-medical purposes such as employment or legal testing. ??Clinical consideration should be applied to any drug of abuse test, particularly when unconfirmed results are used. ?? Raoul Nieto MD URINE ORDERABLES Final R esult [facility]
[address] [place] [address], * , Urine - Urine, Clean Catch (07/24/2024 8:17 PM EST) HCG, Urine QL Negative Negative DISK DIFFUSION 07/24/2024 8:28 PM EST [facility] Urine Urine specimen obtained by clean catch procedure / Unknown Collection / Unknown 07/24/2024 8:17 PM EST 07/24/2024 8:22 PM EST Raoul Nieto MD URINE ORDERABLES Final R esult Performing Organization Address [facility] Co de Phone Number [facility]
[address] [place] [address], * Fentanyl, Urine - Urine, Clean Catch (07/24/2024 8:17 PM EST) Pathologist [facility] Fentanyl, Urine Negative Negative 07/24/2024 8:44 PM EST [facility] Urine Urine specimen obtained by clean catch procedure / Unknown Collection / Unknown 07/24/2024 8:17 PM EST 07/24/2024 8:22 PM EST [facility] - 07/24/2024 8:44 PM EST Negative Threshold: ?? Fentanyl 5 ng/mL The normal value for the drug tested is negative. This report includes final unconfirmed screening results to be used for medical treatment purposes only. Unconfirmed results must not be used for non-medical purposes such as employment or legal testing. Clinical consideration should be applied to any drug of abuse test, particularly when unconfirmed results are used. ? Raoul Nieto MD URINE ORDERABLES Final R esult [facility]
[address] [place] [address], * High Sensitivity Troponin T 2Hr (07/24/2024 8:00 PM EST) [facility] HS Troponin T <6 <14 ng/L 07/24/2024 8:26 PM EST [facility] Troponin T Delta 07/24/2024 8:26 PM [facility] Comment:Unable to calculate. Blood Venipuncture / Unknown 07/24/2024 8:00 PM EST 07/24/2024 8:05 PM EST [facility] - 07/24/2024 8:26 PM EST High Sensitive Troponin T Reference Range: <14.0 ng/L- Negative Female for AMI <22.0 ng/L- Negative Male for AMI >=14 - Abnormal Female indicating possible myocardial injury. >=22 - Abnormal Male indicating possible myocardial injury. Clinicians would have to utilize clinical acumen, EKG, Troponin, and serial changes to determine if it is an Acute Myocardial Infarction or myocardial injury due to an underlying chronic condition. Raoul Nieto MD LAB BLOOD ORDERABLES Fin al Result Performing Organization Address [facility] Co de Phone Number [facility]
[address] [place] [address], * COVID-19, FLU A/B, RSV PCR 1 HR TAT - Swab, Nasopharynx (07/24/2024 7:59 PM EST) COVID19 Not Detected Not Detected - Ref. Range CEPHEID GENEXPERT 07/24/2024 8:50 PM EST [facility] Influenza A PCR Not Detected Not Detected CEPHEID GENEXPERT 07/24/2024 8:50 PM EST [facility] Influenza B PCR Not Detected Not Detected CEPHEID GENEXPERT 07/24/2024 8:50 PM EST [facility] RSV, PCR Not Detected Not Detected CEPHEID GENEXPERT 07/24/2024 8:50 PM EST [facility] Swab Nasopharyngeal structure / Unknown Collection / Unknown 07/24/2024 7:59 PM EST 07/24/2024 8:07 PM EST [facility] - 07/24/2024 8:50 PM EST Fact sheet for providers: https://www.fda.gov/media/522409/download ?? Fact sheet for patients: https://www.fda.gov/media/078133/download Test performed by PCR. Raoul Nieto MD MICROBIOLOGY - GENERAL O RDERABLES Final Result Performing Organization Address City/[facility]/ZIP Co de Phone Number [facility]
[address] [place] [address], * XR Chest 1 View (07/24/2024 7:38 PM EST) Anatomical Region Laterality Modality Body N/A Radiographic Anne Marie ging 07/24/2024 7:40 PM EST Impressions 07/24/2024 7:40 PM EST Impression: No acute cardiopulmonary disease. Electronically Signed: Marciano Nowak MD 07/24/2024 7:40 PM EST Workstation ID: [id number] Narrative 07/24/2024 7:40 PM EST XR CHEST 1 VW Date of Exam: 07/24/2024 7:28 PM EST Indication: Chest Pain Triage Protocol Comparison: None available. Findings: No focal consolidation. No pneumothorax or pleural effusion. Cardiac size is normal. The visualized clavicles appear intact. No displaced rib fractures. The visualized upper abdomen is normal. Procedure Note Marciano Nowak MD - 07/24/2024 XR CHEST 1 VW Date of Exam: 07/24/2024 7:28 PM EST Indication: Chest Pain Triage Protocol Comparison: None available. Findings: No focal consolidation. No pneumothorax or pleural effusion.Cardiac size is normal. The visualized clavicles appear intact. Nodisplaced rib fractures. The visualized upper abdomen is normal. IMPRESSION: Impression: No acute cardiopulmonary disease. Electronically Signed: Marciano Nowak MD 07/24/2024 7:40 PM EST Workstation ID: [id number] Raoul Nieto MD IMG DIAGNOSTIC IMAGING O RDERABLES Final Result * Tirado Top (07/24/2024 7:03 PM EST) Extra Tube Hold for add-ons. 07/24/2024 7:31 PM EST [facility] Comment:Auto resulted. Blood Venipuncture / Unknown 07/24/2024 7:03 PM EST 07/24/2024 7:23 PM EST Raoul Nieto MD LAB BLOOD ORDER ONLY Fin al Result [facility]
[address] [place] [address], * Gold Top - [facility] (07/24/2024 7:03 PM EST) Extra Tube Hold for add-ons. 07/24/2024 7:31 PM EST [facility] Comment:Auto resulted. Blood Venipuncture / Unknown 07/24/2024 7:03 PM EST 07/24/2024 7:23 PM EST Raoul Nieto MD LAB BLOOD ORDER ONLY Fin al Result Performing Organization Address City/[facility]/ZIP Co de Phone Number [facility]
[address] [place] [address], * Green Top (Gel) (07/24/2024 7:03 PM EST) Extra Tube Hold for add-ons. 07/24/2024 7:31 PM EST [facility] Comment:Auto resulted. Blood Venipuncture / Unknown 07/24/2024 7:03 PM EST 07/24/2024 7:23 PM EST Raoul Nieto MD LAB BLOOD ORDER ONLY Fin al Result Performing Organization Address City/[facility]/ZIP Co de Phone Number [facility]
[address] [place] [address], * (ABNORMAL) CBC Auto Differential (07/24/2024 7:03 PM EST) WBC 10.31 3.40 - 10.80 10*3/mm3 07/24/2024 7:29 PM [facility] RBC 4.31 3.77 - 5.28 10*6/mm3 07/24/2024 7:29 PM [facility] Hemoglobin 12.5 12.0 - 15.9 g/dL 07/24/2024 7:29 PM [facility] Hematocrit 37.7 34.0 - 46.6 % 07/24/2024 7:29 PM [facility] MCV 87.5 79.0 - 97.0 fL 07/24/2024 7:29 PM [facility] MCH 29.0 26.6 - 33.0 pg 07/24/2024 7:29 PM [facility] MCHC 33.2 31.5 - 35.7 g/dL 07/24/2024 7:29 PM [facility] RDW 13.3 12.3 - 15.4 % 07/24/2024 7:29 PM [facility] RDW-SD 42.9 37.0 - 54.0 fl 07/24/2024 7:29 PM [facility] MPV 10.9 6.0 - 12.0 fL 07/24/2024 7:29 PM [facility] Platelets 294 140 - 450 10*3/mm3 07/24/2024 7:29 PM [facility] Neutrophil % 58.1 42.7 - 76.0 % 07/24/2024 7:29 PM [facility] Lymphocyte % 31.7 19.6 - 45.3 % 07/24/2024 7:29 PM [facility] Monocyte % 7.0 5.0 - 12.0 % 07/24/2024 7:29 PM [facility] Eosinophil % 2.0 0.3 - 6.2 % 07/24/2024 7:29 PM [facility] Basophil % 0.8 0.0 - 1.5 % 07/24/2024 7:29 PM [facility] Immature Grans % 0.4 0.0 - 0.5 % 07/24/2024 7:29 PM [facility] Neutrophils, Absolute 5.99 1.70 - 7.00 10*3/mm3 07/24/2024 7:29 PM [facility] Lymphocytes, Absolute 3.27(H) 0.70 - 3.10 10*3/mm3 07/24/2024 7:29 PM [facility] Monocytes, Absolute 0.72 0.10 - 0.90 10*3/mm3 07/24/2024 7:29 PM [facility] Eosinophils, Absolute 0.21 0.00 - 0.40 10*3/mm3 07/24/2024 7:29 PM EST [facility] Basophils, Absolute 0.08 0.00 - 0.20 10*3/mm3 07/24/2024 7:29 PM EST [facility] Immature Grans, Absolute 0.04 0.00 - 0.05 10*3/mm3 07/24/2024 7:29 PM EST [facility] nRBC 0.0 0.0 - 0.2 /100 WBC 07/24/2024 7:29 PM EST [facility] Blood Venipuncture / Unknown 07/24/2024 7:03 PM EST 07/24/2024 7:24 PM EST Raoul Nieto MD LAB BLOOD ORDERABLES Fin al Result Performing Organization Address City/[facility]/ZIP Co de Phone Number [facility]
[address] [place] [address], * Lavender Top (07/24/2024 7:03 PM EST) Extra Tube hold for add-on 07/24/2024 7:31 PM EST [facility] Comment:Auto resulted Blood Venipuncture / Unknown 07/24/2024 7:03 PM EST 07/24/2024 7:24 PM EST Raoul Nieto MD LAB BLOOD ORDER ONLY Fin al Result [facility]
[address] [place] [address], * Light Blue Top (07/24/2024 7:03 PM EST) Extra Tube Hold for add-ons. 07/24/2024 7:31 PM EST [facility] Comment:Auto resulted Blood Venipuncture / Unknown 07/24/2024 7:03 PM EST 07/24/2024 7:24 PM EST Raoul Nieto MD LAB BLOOD ORDER ONLY Fin al Result Performing Organization Address City/[facility]/ZIP Co de Phone Number [facility]
[address] [place] [address], * High Sensitivity Troponin T (07/24/2024 7:03 PM EST) Pathologist [facility] HS Troponin T 7 <14 ng/L 07/24/2024 7:58 PM EST [facility] Blood Venipuncture / Unknown 07/24/2024 7:03 PM EST 07/24/2024 7:23 PM EST [facility] - 07/24/2024 7:58 PM EST High Sensitive Troponin T Reference Range: <14.0 ng/L- Negative Female for AMI <22.0 ng/L- Negative Male for AMI >=14 - Abnormal Female indicating possible myocardial injury. >=22 - Abnormal Male indicating possible myocardial injury. Clinicians would have to utilize clinical acumen, EKG, Troponin, and serial changes to determine if it is an Acute Myocardial Infarction or myocardial injury due to an underlying chronic condition. Raoul Nieto MD LAB BLOOD ORDERABLES Fin al Result Performing Organization Address [facility] Hospital/[facility] Co de Phone Number [facility]
[address] [place] [address], * (ABNORMAL) D-dimer, Quantitative (07/24/2024 7:03 PM EST) [facility] D-Dimer, Quantitative 0.70(H) 0.00 - 0.50 MCGFEU/mL 07/24/2024 8:06 PM EST [facility] Blood Venipuncture / Unknown 07/24/2024 7:03 PM EST 07/24/2024 7:24 PM EST Narrative [facility] - 07/24/2024 8:06 PM EST According to the assay jewelry model maker's published package insert, a normal (<0.50 MCGFEU/mL) D-dimer result in conjunction with a non-high clinical probability assessment, excludes deep vein thrombosis (DVT) and pulmonary embolism (PE) with high sensitivity. D-dimer values increase with age and this can make VTE exclusion of an older population difficult. To address this, the [employer], based on best available evidence and recent guidelines, recommends that clinicians use age-adjusted D-dimer thresholds in patients greater than 50 years of age with: a) a low probability of PE who do not meet all Pulmonary Embolism Rule Out Criteria, or b) in those with intermediate probability of PE. The formula for an age-adjusted D-dimer cut-off is age/100 . For example, a 60 year old patient would have an age-adjusted cut-off of 0.60 MCGFEU/mL and an 80 year old 0.80 MCGFEU/mL. Raoul Nieto MD LAB BLOOD ORDERABLES Fin al Result Performing Organization Address City/[facility] Co de Phone Number [facility]
[address] [place] [address], * TSH (07/24/2024 7:03 PM EST) [facility] TSH 3.670 0.270 - 4.200 uIU/mL 07/24/2024 7:58 PM EST [facility] Blood Venipuncture / Unknown 07/24/2024 7:03 PM EST 07/24/2024 7:23 PM EST Raoul Nieto MD LAB BLOOD ORDERABLES Fin al Result Performing Organization Address City/[facility] Co de Phone Number [facility]
[address] [place] [address], * BNP (07/24/2024 7:03 PM EST) [facility] proBNP <36.0 0.0 - 450.0 pg/mL 07/24/2024 8:03 PM EST [facility] Blood Venipuncture / Unknown 07/24/2024 7:03 PM EST 07/24/2024 7:23 PM EST Narrative [facility] - 07/24/2024 8:03 PM EST This assay is used as an aid in the diagnosis of individuals suspected of having heart failure. It can be used as an aid in the diagnosis of acute decompensated heart failure (ADHF) in patients presenting with signs and symptoms of ADHF to the emergency department (ED). In addition, NT-proBNP of <300 pg/mL indicates ADHF is not likely. Age Range Result Interpretation ??NT-proBNP Concentration (pg/mL: <50 ? Positive ?>450 ? [place] ?300-450 ? Negative ?<300 50-75 ? Positive ?>900 ?[place] ?300-900 ?Negative ?<300 >75 ? Positive ?>1800 ?[place] ?300-1800 ?Negative ?<300 us Raoul Nieto MD LAB BLOOD ORDERABLES Fin al Result [facility]
[address] [place] [address], * Magnesium (07/24/2024 7:03 PM EST) Magnesium 2.0 1.6 - 2.6 mg/dL 07/24/2024 7:52 PM EST [facility] Blood Venipuncture / Unknown 07/24/2024 7:03 PM EST 07/24/2024 7:23 PM EST Raoul Nieto MD LAB BLOOD ORDERABLES Fin al Result Performing Organization Address City/[facility] Co de Phone Number [facility]
[address] [place] [address], * Lipase (07/24/2024 7:03 PM EST) Lipase 44 13 - 60 U/L 07/24/2024 7:52 PM EST [facility] Blood Venipuncture / Unknown 07/24/2024 7:03 PM EST 07/24/2024 7:23 PM EST Raoul Nieto MD LAB BLOOD ORDERABLES Fin al Result Performing Organization Address [facility] de Phone Number [facility]
[address] [place] [address], [place] [phone] * Ethanol (07/24/2024 7:03 PM EST) Ethanol <10 0 - 10 mg/dL 07/24/2024 7:52 PM EST [facility] Blood Venipuncture / Unknown 07/24/2024 7:03 PM EST 07/24/2024 7:23 PM EST Narrative [facility] - 07/24/2024 7:52 PM EST Elevated lactic acid concentration and lactate dehydrogenase(LD) activity may falsely elevate enzymatically determined ethanol levels. Not for legal purposes. Raoul Nieto MD LAB BLOOD ORDERABLES Fin al Result Performing Organization Address City/[facility] de Phone Number [facility]
[address] [place] [address], * Acetaminophen Level (07/24/2024 7:03 PM EST) Acetaminophen <5.0 0.0 - 30.0 mcg/mL 07/24/2024 7:54 PM EST [facility] Blood Venipuncture / Unknown 07/24/2024 7:03 PM EST 07/24/2024 7:23 PM EST Raoul Nieto MD LAB BLOOD ORDERABLES Fin al Result Performing Organization Address City/[facility] Co de Phone Number [facility]
[address] [place] [address], * Salicylate Level (07/24/2024 7:03 PM EST) Salicylate <0.3 <=30.0 mg/dL 07/24/2024 7:54 PM EST [facility] Blood Venipuncture / Unknown 07/24/2024 7:03 PM EST 07/24/2024 7:23 PM EST Raoul Nieto MD LAB BLOOD ORDERABLES Fin al Result Performing Organization Address City/[facility]/ZIP Co de Phone Number [facility]
[address] [place] [address], * (ABNORMAL) Comprehensive Metabolic Panel (07/24/2024 7:03 PM EST) Glucose 86 65 - 99 mg/dL 07/24/2024 7:52 PM EST [facility] BUN 14 6 - 20 mg/dL 07/24/2024 7:52 PM EST [facility] Creatinine 0.80 0.57 - 1.00 mg/dL 07/24/2024 7:52 PM EST [facility] Sodium 135(L) 136 - 145 mmol/L 07/24/2024 7:52 PM [facility] Potassium 3.7 3.5 - 5.2 mmol/L 07/24/2024 7:52 PM [facility] Comment:Slight hemolysis det ected by analyzer. Result may be falsely elevated. Chloride 100 98 - 107 mmol/L 07/24/2024 7:52 PM [facility] CO2 23.0 22.0 - 29.0 mmol/L 07/24/2024 7:52 PM [facility] Calcium 9.1 8.6 - 10.5 mg/dL 07/24/2024 7:52 PM [facility] Total Protein 7.4 6.0 - 8.5 g/dL 07/24/2024 7:52 PM [facility] Albumin 4.6 3.5 - 5.2 g/dL 07/24/2024 7:52 PM [facility] ALT (SGPT) 20 1 - 33 U/L 07/24/2024 7:52 PM [facility] AST (SGOT) 23 1 - 32 U/L 07/24/2024 7:52 PM [facility] Alkaline Phosphatase 94 39 - 117 U/L 07/24/2024 7:52 PM [facility] Total Bilirubin 0.2 0.0 - 1.2 mg/dL 07/24/2024 7:52 PM [facility] Globulin 2.8 gm/dL 07/24/2024 7:52 PM [facility] Comment:Calculated Result A/G Ratio 1.6 g/dL 07/24/2024 7:52 PM [facility] BUN/Creatinine Ratio 17.5 7.0 - 25.0 07/24/2024 7:52 PM [facility] Anion Gap 12.0 5.0 - 15.0 mmol/L 07/24/2024 7:52 PM [facility] eGFR 95.7 >60.0 mL/min/1.7 3 07/24/2024 7:52 PM [facility] Blood Venipuncture / Unknown 07/24/2024 7:03 PM EST 07/24/2024 7:23 PM EST Narrative [facility] - 07/24/2024 7:52 PM EST GFR Normal >60 Chronic Kidney Disease <60 Kidney Failure <15 us Raoul Nieto MD LAB BLOOD ORDERABLES Fin al Result [facility]
[address] [place] [address], [place] [phone] from Last 3 Months Care Teams Chemical Analyst Relationship Specialty Start Date End Date Provider, No Known [facility] [place] [address] PCP - General 01/26/17
--- OUTSIDE RECORDS SUMMARY | 2024-08-08 14:35 | XMS_ITS | Encounter Summary ---
[facility] Address [address] [place] [address] Care Team Providers Care Gas Mask Inspector Name Role Phone Provider, No Known Primary Care Provider Unavail able Encounter Details Date Type Department Care Team (Latest Contact Info) Description 07/24/2024 Travel Social History Tobacco Use Types Packs/Day Years [...] on file documented as of this encounter Plan of Treatment Not on file documented as of this encounter Visit Diagnoses Not on filedocumented in this encounter Additional Health Concerns Infection Onset Date Last Indicated Resolved Time COVID Screen (preop/placement) 07/24/2024 07/24/2024 07/24/2024 8:50 PM EST documented as of this encounter Care Teams Gas Mask Inspector Relationship Specialty Start Date End Date Provider, No Known [facility] [place] [address] PCP - General 01/26/17 documented as of this encounter
--- OUTSIDE RECORDS SUMMARY | 2024-08-08 14:36 | XMS_ITS | Encounter Summary ---
Author Organization [facility] Address [address] [place] [address] Care Team Providers Care Master Ship Name Role Phone Unavailable Primary Care Provider Unavailabl e Encounter Details Date Type Department Care Team (Late st Contact Info) Description [facility] [employer] En[facility] HISTORICAL OPHTHALMOLOGY [address] [place] [address] Oscar Finch MD [address] [address] Social History Tobacco Use Types Packs/Day Years Used Date Smoking Tobacco: Never Assessed Comments Unknown Sex and Gender Information Value Date Recorded Sex Assigned at Not on file Legal Sex Female 6:49 PM EDT Gender Identity Not on file Sexual Orientation Not on file documented as of this encounter Plan of Treatment Not on file documented as of this encounter Visit Diagnoses Not on filedocumented in this encounter
--- OUTSIDE RECORDS SUMMARY | 2024-08-08 14:36 | XMS_ITS | Encounter Summary ---
Author Organization Healthcare Address [address] [place] [address] Care Team Providers Care Reproductive Healthcare Assistant Name Role Phone Pcp, No Primary Care Provider Unavailabl e Reason for Visit * Reason Comments Multiple Complaints Encounter Details Date Type Department Care Team ([facility] st Contact Info) Description 09/15/2022 10:04 AM EST - 09/15/2022 2:12 PM EST Emergency PAV A Emergency Department [address] [place] [address] Hank Veram MD [address] [place] [address] Nonintractable episodic headache, unspecified headache type (Primary Dx); Confusion; Anger Discharge Disposition: Home or Self Care Social History Tobacco Use Types Packs/Day Years Used Date Smoking Tobacco: Former CAGE ASSESSMENT Answer Date Recorded Cage unable to access Not on file 09/15/2022 Maximum number of drinks you had on a given occasion in the last month? 5 or more drinks 09/15/2022 How many alcoholic Beverages do you typically drink in a week? 15 or more per week 09/15/2022 Have you ever felt you shoul d CUT down on your drinking? 1 09/15/2022 Have you been ANNOYED by peo ple criticizing your drinking? 0 09/15/2022 Have you felt GUILTY about your drinking? 1 09/15/2022 Have you had a drink first t fatimah in the morning ([employer]) to steady your nerves or to get rid of a hangover? 0 09/15/2022 CAGE Questionnaire Score 2 023 Comments Unknown Sex and Gender Information Value Date Recorded Sex Assigned at Not on file Legal Sex Female 6:49 PM EDT Gender Identity Not on file Sexual Orientation Not on file COVID-19 Exposure Response Date Recorded In the last 10 days, have yo u been in contact with someone who was confirmed or suspected to have Coronavirus/COVID-19? Unable to assess 09/15/2022 9:33 AM EST documented as of this encounter Last Filed Vital Signs Vital Sign Reading Time Taken Comments Blood Pressure 136/72 09/15/2022 2:00 PM EST Pulse 86 09/15/2022 2:00 PM EST Temperature 36.6 ??C (97.9 ??F) 09/15/2022 9:34 AM ES T Respiratory Rate 14 09/15/2022 2:00 PM EST Oxygen Saturation 98% 09/15/2022 2:00 PM EST Inhaled Oxygen Concentration - - Weight 77.1 kg (170 lb) 09/15/2022 9:34 AM EST Height 162.6 cm (5' 4 ) 09/15/2022 9:34 AM EST Body Mass Index 29.18 09/15/2022 9:34 AM EST documented in this encounter Discharge Instructions * Discharge Instructions* The, Yoli Parada MD - 09/15/2022 1:40 PM EST You were seen and evaluated today in the emergency department. Use Vistaril medications as prescribed. Follow-up with outpatient referral to new primary care provider, Neurology, and Psychiatry. Return to the ED if any symptoms change or worsen. Keep documentation of the days and times of your symptoms and what symptoms you have had. * Attachments The following attachments cannot be sent through Care Everywhere. * Confusion (Romanian) * Headaches, Self-Care for (Romanian) documented in this encounter Medications at Time of Discharge hydrOXYzine pamoate (Vistaril) 25 MG capsule Take 1 capsule (25 mg total) by mouth every 8 (eight) hours if needed for itching for up to 10 days. 30 capsule 09/15/2022 documented as of this encounter Miscellaneous Notes * ED Provider Notes - Yoli Alonso MD - 09/15/2022 9:30 AM EST HPI Chief Complaint Patient presents with Multiple Complaints PIT Note Akua Alvarenga is a 36 y.o. female with a hx of ADD who presents to ED with Medical Evaluation. Pt complains of confusion, which her visitor describes as mood swings, dissociation and memory loss beginning in the past few weeks. Pt complains of chest pain and headache. Pt states my head feels cloudy. Pt reports she experienced a fall 1 month ago and has experienced headache since the fall. Pt endorses use of Adderall occasionally. Pt reports heavy alcohol use daily, with liquor as her drink ofchoice. Per pt she has decreased her alcohol use. Pt notes she is dehydrated but eats healthy. Patient denies fever, chills. Pt denies N/V/D. Main, The- Akua Alvarenga is a 36 year old female with a PMHx of ADD (intermittently takes adderall) that presents to the emergency department with confusion, anger outbursts, and a headache. Pt states that at the end of July of 2022, she had a fall where she hit the back of her head and states that her symptoms began after that. She has never been diagnosed with any psych conditions, however, was told before that she may have bipolar disorder. Her confusion is characterized as episodes of notremembering things and acting out of character per her boyfriend. The boyfriend present at bedside states that there are times she will have large outbursts that she has never done before. He denies any chest pain, abdominal pain, vomiting, or any other symptoms. Of note, pt states that she drinks alcohol daily and usually goes through a fifth of hard liquor every 2 days. History provided by: Patient and significant other sign language interpreter used: No No data recorded Patient History Past Medical History: Diagnosis Date Personal history of other diseases of the respiratory system History of asthma Personal history of other mental and behavioral disorders History of attention deficit disorder Past Surgical History: Procedure Laterality Date OTHER SURGICAL HISTORY N/A History Of Prior Surgery from [facility] Family History Problem Relation Name Age of Onset Conversions - Other Other Known health problems: none Tobacco Use Smoking status: Former Immunization History Immunization History: reviewed Allergies: No Known Allergies Review of Systems Review of Systems Constitutional: Negative for chills and fever. HENT: Negative for ear pain and sore throat. Eyes: Negative for pain and visual disturbance. Respiratory: Negative for cough and shortness of breath. Cardiovascular: Negative for palpitations. Gastrointestinal: Negative for abdominal pain and vomiting. Genitourinary: Negative for dysuria and hematuria. Musculoskeletal: Negative for arthralgias and back pain. Skin: Negative for color change and rash. Neurological: Positive for headaches. Negative for seizures and syncope. Psychiatric/Behavioral: Positive for behavioral problems and confusion. Anger problems All other systems reviewed and are negative. Physical Exam ED Triage Vitals [09/15/22 0934] Temp Heart Rate Resp BP 36.6 ??C (97.9 ??F) 98 18 (!) 158/110 SpO2 Temp Source Heart Rate Source Patient Position 99 % Oral -- -- BP Location FiO2 (%) -- -- Physical Exam Vitals and nursing note reviewed. Constitutional: General: She is not in acute distress. HENT: Head: Normocephalic. Right Ear: External ear normal. Left Ear: External ear normal. Nose: Nose normal. No rhinorrhea. Mouth/Throat: Mouth: Mucous membranes are moist. Eyes: Extraocular Movements: Extraocular movements intact. Conjunctiva/sclera: Conjunctivae normal. Cardiovascular: Rate and Rhythm: Normal rate and regular rhythm. Pulmonary: Effort: Pulmonary effort is normal. No respiratory distress. Abdominal: General: Abdomen is flat. There is no distension. Musculoskeletal: General: No deformity. Cervical back: Normal range of motion and neck supple. Skin: General: Skin is warm and dry. Coloration: Skin is not jaundiced or pale. Neurological: General: No focal deficit present. Mental Status: She is alert and oriented to person, place, and time. Psychiatric: Comments: Anxious ED Course & MDM Clinical Impressions as of 09/15/22 1434 Nonintractable episodic headache, unspecified headache type Confusion Anger ED Disposition: MDM Number of Diagnoses or Management Options Anger Confusion Nonintractable episodic headache, unspecified headache type Diagnosis management comments: Date/Time: 09/15/2022/9:53 AM Entered by Chantal Pickard acting as scribe for Dr. Isacc Salter MD. Attending Attestation: The documentation was recorded by Chantal Pickard, acting as scribe in my presence at the time of the encounter and accurately reflects the service I personally performed. In summary, Akua Alvarenga is a 36 year old female with a PMHx of ADD (intermittently takes adderall) that presents to the emergency department with confusion, anger outbursts, and a headache. Differential diagnoses include but are not limited to concussion, intracranial abnormalities including hematoma and hemorrhage, migraine headache, tension headache, intoxication, ingestion, vitamin deficiency,Wernicke's encephalopathy, dehydration, and electrolyte abnormalities. Upon arrival to the ED patient is afebrile, stable, and with a fully normal exam. No confusion, no slurred speech, and no focal neurological symptoms. Pt has normal exam. She asked for a urine gonorrhea/chlamydia test, and we also discussed an outpatient psych referral, outpatient neuro referral, and an outpatient PCP referral. Pt's history sounds like the psych referral may be beneficial and neuro can evaluate her for ongoing post concussive symptoms. Labs- CBC, CMP, mag, phos, trops, BHCG, TSH, UA, ethyl alcohol, urine G&C all largely unremarkable and UA with no WBCs Imaging- CT head wo, CXR, EKG all unremarkable Consults- outpatient PCP, neuro, and psych referrals placed It should be noted that her chronic conditions includes ADHD/ADD, which currently is not at goal therapy. This complicates her clinical picture because it may be exacerbating symptoms. Additional history was provided by significant other I interpreted and clinically used the CT Scan and CXR prior to its official reading. Unremarkable on my read. Please see the interpretation for final read. Dispo- discharged Amount and/or Complexity of Data Reviewed Clinical lab tests: ordered and reviewed Tests in the radiology section of CPT??: ordered and reviewed Obtain history from someone other than the patient: yes Review and summarize past medical records: yes ED Prescriptions None Sign Off Checklist Clinical Impression: Complete ED Disposition: Complete Yoli Delacruz MD Resident 09/16/22 0745 Cosigned by Hank Verma MD at 09/22/2022 9:51 AM EST Associated attestation - Hank Verma MD - 09/22/2022 9:51 AM EST I saw and evaluated the patient with the resident/fellow. I discussed the case with the resident/fellow and agree with the findings and plan as documented. * ED Triage Notes - Jarret Ron RN - 09/15/2022 9:30 AM EST Pt reports her head feels weird. Pt reports she has chest pain, headache and visitor reports she has seemed confused. Symptoms began several weeks ago. Pt reports she had a fall 1 month ago. documented in this encounter Plan of Treatment Not on file documented as of this encounter Procedures Procedure Name Priority Date/Time Associated Diagnosis Comments CHLAMYDIA TRACHOMATIS DNA BY PCR STAT 09/15/2022 12:54 PM EST NEISSERIA GONORRHEA DNA BY PCR STAT 09/15/2022 12:54 PM EST TROPONIN T, HIGH SENSITIVITY, 2 HOUR, PLASMA Timed 09/15/2022 12:07 PM EST URINALYSIS MICROSCOPIC FOR UA REFLEX STAT 09/15/2022 11:08 AM EST AMPHETAMINES LCMSMS URINE STAT 09/15/2022 11:08 AM EST DRUG ABUSE SCREEN, URINE STAT 09/15/2022 11:08 AM EST THC URINE CONFIRM STAT 09/15/2022 11: 08 AM EST URINALYSIS WITH REFLEX MICROSCOPIC STAT 09/15/2022 11:[address] HEAD WO IV CONTRAST STAT 11:03 AM EST XR CHEST 1 VIEW STAT 09/15/2022 10:25 AM EST TROPONIN T, HIGH SENSITIVITY, 0 HOUR, PLASMA, REFLEX TO 2 HOUR STAT 09/15/2022 10:00 AM EST LACTATE, VENOUS STAT 09/15/2022 10:00 AM EST ETHYL ALCOHOL PLASMA STAT 09/15/2022 10:00 AM EST CBC WITH AUTO DIFFERENTIAL STAT 09/15/2022 10:00 AM EST TEST QUALITATIVE PLASMA STAT 09/15/2022 10:00 AM EST TSH STAT 09/15/2022 10:00 AM EST MAGNESIUM, PLASMA STAT 09/15/2022 10: 00 AM EST COMPREHENSIVE METABOLIC PANEL, PLASMA STAT 09/15/2022 10:00 AM EST ECG ADULT STAT 09/15/2022 9:39 AM EST documented in this encounter Results * Chlamydia trachomatis by PCR (09/15/2022 12:54 PM EST) Chlamydia trachomatis DNA PCR Result Not Detected Not Detected 09/16/2022 5:38 PM EST [facility] Urine Urine specimen obtained by clean catch procedure / Unknown Non-blood Collection / Unknown 09/15/2022 12:54 PM EST 09/15/2022 2:04 PM EST Narrative [facility] - 09/16/2022 5:38 PM EST This test is performed by the [employer] m2000 instrument for Real Time PCR C. trachomatis and N. gonorrhea. This test is FDA approved for use with endocervical, vaginal, and urine specimens. This test is used for clinical purposes. It should not be regarded as invesigational or for research. The [facility] is certified under the Clinical Laboratory Improvement Amendments of 1988 (CLIA-88) as qualified to perform high complexity clinical laboratory testing. Hank Verma MD LAB MICROBIOLOGY - GENERAL ORDERABLES Final Result [facility] [address] [place] [address] * Neisseria gonorrhea DNA by PCR (09/15/2022 12:54 PM EST) [facility] Neisseria gonorrhea DNA PCR Result Not Detected Not Detected. 09/16/2022 5:38 PM EST [facility] Urine Urine specimen obtained by clean catch procedure / Unknown Non-blood Collection / Unknown 09/15/2022 12:54 PM EST 09/15/2022 2:04 PM EST Narrative [facility] - 09/16/2022 5:38 PM EST This test is performed by the [employer] instrument for Real Time PCR C. trachomatis and N. gonorrhea. This test is FDA approved for use with endocervical, vaginal, and urine specimens. This test is used for clinical purposes. It should not be regarded as invesigational or for research. The [facility] is certified under the Clinical Laboratory Improvement Amendments of 1988 (CLIA-88) as qualified to perform high complexity clinical laboratory testing. Hank Verma MD LAB MICROBIOLOGY - GENERAL ORDERABLES Final Result Performing Organization Address [facility] Co de Phone Number [facility] [address] [place] [address] * Troponin T, High Sensitivity, 2 Hour, Plasma (09/15/2022 12:07 PM EST) [facility] Troponin T, High Sensitivity, 2 Hour <6 <14 ng/L 09/15/2022 12:44 PM EST [facility] Blood Venous blood specimen / Unknown Venipuncture / Unknown 09/15/2022 12:07 PM EST 09/15/2022 12:09 PM EST Isacc Salter MD LAB BLOOD ORDERABLES Final Resul t Performing Organization Address [facility] Co de Phone Number [facility] [address] [place] [address] * (ABNORMAL) THC Urine Confirm LCMSMS (09/15/2022 11:08 AM EST) [facility] 9 Carboxy THC >250(H) <10 ng/mL 09/16/2022 9:58 PM EST [facility] 9 Carboxy THC Glucuronide >500(H) <25 ng/mL 09/16/2022 9:58 PM EST [facility] Urine Urine specimen obtained by clean catch procedure / Unknown Non-blood Collection / Unknown 09/15/2022 11:08 AM EST 09/15/2022 11:16 AM EST Narrative [facility] - 09/16/2022 9:58 PM EST Drug analysis is confirmed by LC-MS/MS (LC Tandem Mass Spectrometry) on Urine specimens. ?? This test was developed and its performance characteristics determined by [facility]. It has not been cleared or approved by the FDA. The laboratory is regulated under CLIA as qualified to perform high-complexity testing. This test is used for clinical purposes. Testing is performed at the [facility]. Isacc Salter MD LAB URINE ORDERABLES Final Resul t Performing Organization Address City/State/[facility] Co de Phone Number [facility] [address] [place] [address] * (ABNORMAL) Amphetamine Urine Confirm LCMSMS (09/15/2022 11:08 AM EST) Amphetamine >1,000(H) <50 ng/mL 09/16/2022 9:58 PM EST [facility] Methamphetamine <50 <50 ng/mL 9:58 PM EST [facility] MDA <50 <50 ng/mL 09/16/2022 9:58 PM EST [facility] MDMA <50 <50 ng/mL 09/16/2022 9:58 PM EST [facility] Urine Urine specimen obtained by clean catch procedure / Unknown Non-blood Collection / Unknown 09/15/2022 11:08 AM EST 09/15/2022 11:16 AM EST Narrative [facility] - 09/16/2022 9:58 PM EST Drug analysis is confirmed by LC-MS/MS (LC Tandem Mass Spectrometry) on Urine specimens. ?? This test was developed and its performance characteristics determined by [facility]. It has not been cleared or approved by the FDA. The laboratory is regulated under CLIA as qualified to perform high-complexity testing. This test is used for clinical purposes. Testing is performed at the [facility]. us Isacc Salter MD LAB URINE ORDERABLES Final Resul t Performing Organization Address [facility] Phone Number [facility] [address] [place] [address] * Urinalysis Microscopic Examination (09/15/2022 11:08 AM EST) Urine Urine specimen obtained by clean catch procedure / Unknown Non-blood Collection / Unknown 09/15/2022 11:08 AM EST 09/15/2022 11:16 AM EST us Isacc Salter MD LAB URINE ORDERABLES Final Resul t Performing Organization Address [facility] de Phone Number [facility] [address] [place] [phone] * Drug abuse screen (09/15/2022 11:08 AM EST) Amphetamine Screen Urine Presumptive positive. Confirmation by LC-MS/MS to follow. Cutoff: 500 ng/mL 09/15/2022 11:43 AM EST [facility] Benzodiazepines Screen Urine Negative Cutoff: 200 ng/mL 09/15/2022 11:43 AM EST [facility] Cannabinoid Screen Urine Presumptive positive. Confirmation by LC-MS/MS to follow. Cutoff: 50 ng/mL 09/15/2022 11:43 AM EST [facility] Cocaine Screen Urine Negative Cutoff: 300 ng/mL 09/15/2022 11:43 AM EST [facility] Barbiturate Screen Urine Negative Cutoff: 200 ng/mL 09/15/2022 11:43 AM EST [facility] Opiate Screen Urine Negative Cutoff: 300 ng/mL 09/15/2022 11:43 AM EST [facility] Methadone Screen Urine Negative Cutoff: 300 ng/mL 09/15/2022 11:43 AM EST [facility] Buprenorphine Screen Urine Negative Cutoff: 10 ng/mL 09/15/2022 11:43 AM EST [facility] Fentanyl Screen Urine Negative Cutoff: 1 ng/mL 09/15/2022 11:43 AM EST [facility] Oxycodone Screen Urine Negative Cutoff: 100 ng/mL 09/15/2022 11:43 AM EST [facility] Urine Urine specimen obtained by clean catch procedure / Unknown Non-blood Collection / Unknown 09/15/2022 11:08 AM EST 09/15/2022 11:16 AM EST Isacc Salter MD LAB URINE ORDERABLES Final Resul t [facility] [address] [place] [address] * (ABNORMAL) Urinalysis with reflex microscopic (09/15/2022 11:08 AM EST) Color, Urine Yellow LAB URINALYSIS - AUTOMATED METHOD 09/15/2022 11:37 AM EST [facility] Clarity, Urine Cloudy LAB URINALYSIS - AUTOMATED METHOD 09/15/2022 11:37 AM [facility] Spec [place], Urine 1.025 <=1.005 to >=1.030 LAB URINALYSIS - AUTOMATED METHOD 09/15/2022 11:37 AM EST [facility] pH, Urine 7.0 4.5 to 8 LAB URINALYSIS - AUTOMATED METHOD 09/15/2022 11:37 AM EST [facility] Protein, Urine Negative Negative mg/dL LAB URINALYSIS - AUTOMATED METHOD 09/15/2022 11:37 AM [facility] Glucose, Urine Negative Negative mg/dL LAB URINALYSIS - AUTOMATED METHOD 09/15/2022 11:37 AM [facility] Ketones, Urine Negative Negative mg/dL LAB URINALYSIS - AUTOMATED METHOD 09/15/2022 11:37 AM [facility] Blood, Urine Negative Negative LAB URINALYSIS - AUTOMATED METHOD 09/15/2022 11:37 AM [facility] Bilirubin, Urine Negative Negative LAB URINALYSIS - AUTOMATED METHOD 09/15/2022 11:37 AM [facility] Urobilinogen, Urine 1.0 0.2 to 1.0 mg/dL LAB URINALYSIS - AUTOMATED METHOD 09/15/2022 11:37 AM [facility] Leukocytes, Urine Trace(A) Negative LAB URINALYSIS - AUTOMATED METHOD 09/15/2022 11:37 AM [facility] Nitrite, Urine Positive(A) Negative LAB URINALYSIS - AUTOMATED METHOD 09/15/2022 11:37 AM [facility] RBC, Urine 4 - 10(A) 0 to 3 /HPF LAB URINALYSIS - AUTOMATED METHOD 09/15/2022 11:37 AM EST [facility] Comment:This result was prev iously suppressed from the chart. WBC, Urine 0 - 5 0 to 5 /HPF LAB URINALYSIS - AUTOMATED METHOD 09/15/2022 11:37 AM EST [facility] Comment:This result was prev iously suppressed from the chart. Squamous Epithelial Cells 6 - 10(A) 0 to 5 /HPF LAB URINALYSIS - AUTOMATED METHOD 09/15/2022 11:37 AM EST [facility] Comment:This result was prev iously suppressed from the chart. Hyaline Casts 0 - 8 0 to 8 /LPF LAB URINALYSIS - AUTOMATED METHOD 09/15/2022 11:37 AM EST [facility] Comment:This result was prev iously suppressed from the chart. Bacteria, Urine Present Negative LAB URINALYSIS - AUTOMATED METHOD 09/15/2022 11:37 AM EST [facility] Comment:This result was prev iously suppressed from the chart. Urine Urine specimen obtained by clean catch procedure / Unknown Non-blood Collection / Unknown 09/15/2022 11:08 AM EST 09/15/2022 11:16 AM EST us Isacc Salter MD LAB URINE ORDERABLES Final Resul t [facility] [address] [place], [place] [id number] * CT Head wo IV Contrast (09/15/2022 11:03 AM EST) Anatomical Region Laterality Modality Head Computed Tomogra phy Impressions 09/15/2022 11:27 AM EST No definite acute intracranial mass or hemorrhage.. CRITICAL RESULT: ?? No. COMMUNICATION: Per this written report. Dictated by Seth Sumner MD on 09/15/2022 11:24 AM Signed by Seth Sumner MD on 09/15/2022 11:27 AM Narrative 09/15/2022 11:27 AM EST Exam/Procedure: CT HEAD WO IV CONTRAST ordered by ISACC SALTER, [id number] CLINICAL INDICATION: Mental status change3 ?? TECHNIQUE: ?? Spiral axial CT images of the head were obtained without contrast administration. Total DLP (Dose-Length Product): 763.39 mGy.cm. Please note: The reported value represents the total of one or more individual components during the CT acquisition on this date and at this time, and as such, the same value may appear in more than one CT report depending on the interpreting/reporting physicians. COMPARISON: None. FINDINGS: Diagnostic Quality: Streak artifact is limiting visualization of portions of the right temporal lobe and posterior fossa.. The ventricles and sulci are normal in size. There is no acute large cortical infarct, intracranial hemorrhage or large mass on this noncontrast study. Soft Tissues: No significant soft tissue swelling is present. Skull: There are no calvarial destructive lesions or fractures. Sinuses and Mastoids: The visualized portions of the paranasal sinuses are clear. The mastoid air cells are clear. Procedure Note Seth Bowen MD - 09/15/2022 Exam/Procedure: CT HEAD WO IV CONTRAST ordered by ISACC SALTER, [id number] CLINICAL INDICATION: Mental status change3 TECHNIQUE: Spiral axial CT images of the head were obtained without contrastadministration. Total DLP (Dose-Length Product): 763.39 mGy.cm. Please note: The reportedvalue represents the total of one or more individual components during theCT acquisition on this date and at this time, and as such, the same valuemay appear in more than one CT report depending on theinterpreting/reporting physicians. COMPARISON: None. FINDINGS: Diagnostic Quality: Streak artifact is limiting visualization of portionsof the right temporal lobe and posterior fossa.. The ventricles and sulci are normal in size. There is no acute large cortical infarct, intracranial hemorrhage or largemass on this noncontrast study. Soft Tissues: No significant soft tissue swelling is present. Skull: There are no calvarial destructive lesions or fractures. Sinuses and Mastoids: The visualized portions of the paranasal sinuses areclear. The mastoid air cells are clear. IMPRESSION: No definite acute intracranial mass or hemorrhage.. CRITICAL RESULT: No. COMMUNICATION: Per this written report. Dictated by Seth Sumner MD on 09/15/2022 11:24 AM Signed by Seth Sumner MD on 09/15/2022 11:27 AM us Isacc C Rock MD IMG CT PROCEDURES Final Result * XR Chest 1 View (09/15/2022 10:25 AM EST) Anatomical Region Laterality Modality Chest Digital Radiogra phy Impressions 09/15/2022 11:00 AM EST No acute findings. CRITICAL RESULT: ?? No. COMMUNICATION: Per this written report. Approved by Aldair Londono MD on 09/15/2022 10:54 AM By electronically signing this report, I, the attending physician, attest that I have personally reviewed the images/data for the above examination(s) and agree with the final edited report. Dictated by Aldair Londono MD on 09/15/2022 10:54 AM Signed by Marciano Mckeon MD on 09/15/2022 11:00 AM Narrative 09/15/2022 11:00 AM EST Exam/Procedure: XR CHEST 1 VIEW ordered by ISACC SALTER [id number] CLINICAL INDICATION: chest pain TECHNIQUE: XR CHEST 1 VIEW COMPARISON: Chest radiograph 12/10/2012. FINDINGS: Cardiomediastinal silhouette is within normal limits. No focal airspace opacities. No pleural effusions or pneumothorax. No acute osseous abnormality. Procedure Note Marciano Mckeon MD - 09/15/2022 Exam/Procedure: XR CHEST 1 VIEW ordered by ISACC SALTER [id number] CLINICAL INDICATION: chest pain TECHNIQUE: XR CHEST 1 VIEW COMPARISON: Chest radiograph 12/10/2012. FINDINGS: Cardiomediastinal silhouette is within normal limits. No focal airspaceopacities. No pleural effusions or pneumothorax. No acute osseousabnormality. IMPRESSION: No acute findings. CRITICAL RESULT: No. COMMUNICATION: Per this written report. Approved by Aldair Londono MD on 09/15/2022 10:54 AM By electronically signing this report, I, the attending physician, attestthat I have personally reviewed the images/data for the aboveexamination(s) and agree with the final edited report. Dictated by Aldair Londono MD on 09/15/2022 10:54 AM Signed by Marciano Mckeon MD on 09/15/2022 11:00 AM us Isacc Salter MD IMG XR PROCEDURES Final Result * Lactic acid, venous (09/15/2022 10:00 AM EST) Lactate, Venous, Whole Blood 1.4 0.5 - 2.2 mmol/L LAB HEMATOLOGY METHOD 09/15/2022 10:11 AM EST [facility] Blood Venous blood specimen / Unknown Venipuncture / Unknown 09/15/2022 10:00 AM EST 09/15/2022 10:09 AM EST us Isacc Salter MD LAB BLOOD ORDERABLES Final Resul t Performing Organization Address City/[facility]/ZIP Co de Phone Number [facility] [address] [place] [address] * Troponin now and 120 min (09/15/2022 10:00 AM EST) Troponin T, High Sensitivity, 0 Hour <6 <14 ng/L 09/15/2022 10:45 AM EST [facility] Blood Venous blood specimen / Unknown Venipuncture / Unknown 09/15/2022 10:00 AM EST 09/15/2022 10:05 AM EST us Isacc Salter MD LAB BLOOD ORDERABLES Final Resul t Performing Organization Address City/[facility] Co de Phone Number [facility] [address] [place] [address] * Ethyl Alcohol Plasma (09/15/2022 10:00 AM EST) Ethanol Plasma <10 <10 mg/dL 09/15/2022 11:50 AM EST [facility] Blood Venous blood specimen / Unknown Venipuncture / Unknown 09/15/2022 10:00 AM EST 09/15/2022 10:10 AM EST Narrative [facility] - 09/15/2022 11:50 AM EST Test performed by Gas Chromatography at the [facility]. This test was developed and its performance characteristics determined by [facility]. It has not been cleared or approved by the FDA.The laboratory is regulated under CLIA as qualified to perform high-complexity testing. This test is used for clinical purposes only. us Isacc Salter MD LAB BLOOD ORDERABLES Final Resul t Performing Organization Address City/[facility] Phone Number [facility] [address] [place] [address] * Magnesium (09/15/2022 10:00 AM EST) Magnesium, Plasma 1.9 1.9 - 2.4 mg/dL 09/15/2022 10:45 AM EST [facility] Blood Venous blood specimen / Unknown Venipuncture / Unknown 09/15/2022 10:00 AM EST 09/15/2022 10:05 AM EST us Isacc Salter MD LAB BLOOD ORDERABLES Final Resul t Performing Organization Address [facility] Phone Number [facility] [address] [place] [address] * hCG qualitative (09/15/2022 10:00 AM EST) Test Negative Negative 09/15/2022 10:45 AM EST [facility] Blood Venous blood specimen / Unknown Venipuncture / Unknown 09/15/2022 10:00 AM EST 09/15/2022 10:05 AM EST Narrative [employer] [facility] - 09/15/2022 10:45 AM EST Reference Range: Males and non- females: Negative. us Isacc Salter MD LAB BLOOD ORDERABLES Final Resul t Performing Organization Address City/[facility] Phone Number [facility] [address] [place] [address] * TSH (09/15/2022 10:00 AM EST) Thyroid Stimulating Hormone, Plasma 0.64 0.40 - 4.20 uIU/mL 09/15/2022 10:45 AM EST [facility] Blood Venous blood specimen / Unknown Venipuncture / Unknown 09/15/2022 10:00 AM EST 09/15/2022 10:05 AM EST Narrative [facility] - 09/15/2022 10:45 AM EST Trimester Specific Ranges ?TSH (??IU/mL) 1st Trimester ??0.1 ??- 3.0 2nd Trimester ??0.19 - 4.06 3rd Trimester ??0.3 ??- 3.7 Isacc Salter MD LAB BLOOD ORDERABLES Final Resul t [facility] [address] [place] [address] * (ABNORMAL) CBC w/diff (09/15/2022 10:00 AM EST) [facility] WBC Count 9.53 3.70 - 10.30 10*3/uL LAB HEMATOLOGY METHOD 09/15/2022 10:08 AM EST [facility] RBC Count 4.63 3.90 - 5.20 10*6/uL LAB HEMATOLOGY METHOD 09/15/2022 10:08 AM EST [facility] HGB 13.5 11.2 - 15.7 g/dL LAB HEMATOLOGY METHOD 09/15/2022 10:08 AM EST [facility] HCT 41.5 34.0 - 45.0 % LAB HEMATOLOGY METHOD 09/15/2022 10:08 AM EST [facility] Platelet Count 217 155 - 369 10*3/uL LAB HEMATOLOGY METHOD 09/15/2022 10:08 AM EST [facility] MCV 90 79 - 98 fL LAB HEMATOLOGY METHOD 09/15/2022 10:08 AM EST [facility] MCH 29.2 26.0 - 32.0 pg LAB HEMATOLOGY METHOD 09/15/2022 10:08 AM EST [facility] MCHC 32.5 30.7 - 35.5 g/dL LAB HEMATOLOGY METHOD 09/15/2022 10:08 AM EST [facility] RDW 14.2 11.5 - 14.5 % LAB HEMATOLOGY METHOD 09/15/2022 10:08 AM EST [facility] MPV 11.1 8.8 - 12.5 fL LAB HEMATOLOGY METHOD 09/15/2022 10:08 AM EST [facility] nRBC 0.0 <=0.0 per 100 WBCs LAB HEMATOLOGY METHOD 09/15/2022 10:08 AM EST [facility] Differential Type Automated LAB HEMATOLOGY METHOD 09/15/2022 10:08 AM EST [facility] Neutrophils % 69.0 % LAB HEMATOLOGY METHOD 09/15/2022 10:08 AM EST [facility] Lymphocytes % 20.0 % LAB HEMATOLOGY METHOD 09/15/2022 10:08 AM EST [facility] Monocytes % 8.0 % LAB HEMATOLOGY METHOD 09/15/2022 10:08 AM EST [facility] Eosinophils % 2.0 % LAB HEMATOLOGY METHOD 09/15/2022 10:08 AM EST [facility] Basophils % 1.0 % LAB HEMATOLOGY METHOD 09/15/2022 10:08 AM EST [facility] Immature Granulocytes % 0.0 % LAB HEMATOLOGY METHOD 09/15/2022 10:08 AM EST [facility] Neutrophils Absolute 6.57(H) 1.60 - 6.10 10*3/uL LAB HEMATOLOGY METHOD 09/15/2022 10:08 AM EST [facility] Lymphocytes Absolute 1.92 1.20 - 3.90 10*3/uL LAB HEMATOLOGY METHOD 09/15/2022 10:08 AM EST [facility] Monocytes Absolute 0.77 0.30 - 0.90 10*3/uL LAB HEMATOLOGY METHOD 09/15/2022 10:08 AM EST [facility] Eosinophils Absolute 0.17 0.00 - 0.50 10*3/uL LAB HEMATOLOGY METHOD 09/15/2022 10:08 AM EST [facility] Basophils Absolute 0.06 0.00 - 0.10 10*3/uL LAB HEMATOLOGY METHOD 09/15/2022 10:08 AM EST [facility] Immature Granulocytes Absolute 0.04 0.00 - 0.06 10*3/uL LAB HEMATOLOGY METHOD 09/15/2022 10:08 AM EST [facility] Blood Venous blood specimen / Unknown Venipuncture / Unknown 09/15/2022 10:00 AM EST 09/15/2022 10:06 AM EST Narrative [facility] - 09/15/2022 10:08 AM EST Therapeutic decision making should be based on absolute values, rather than percentages. Isacc Salter MD LAB BLOOD ORDERABLES Final Resul t [facility] [address] [place] [address] * (ABNORMAL) CMP (09/15/2022 10:00 AM EST) Glucose, Plasma 71(L) 74 - 99 mg/dL 09/15/2022 10:45 AM [facility] BUN, Plasma 10 7 - 21 mg/dL 09/15/2022 10:45 AM [facility] Creatinine, Plasma 0.70 0.60 - 1.10 mg/dL 09/15/2022 10:45 AM [facility] BUN/Creatinine Ratio 14 09/15/2022 10:45 AM [facility] Sodium, Plasma 139 136 - 145 mmol/L 09/15/2022 10:45 AM [facility] Potassium, Plasma 4.4 3.7 - 4.8 mmol/L 09/15/2022 10:45 AM [facility] Comment: Hemolyzed, result may be falsely increased. Reference range for Serum potassium is 0.2 to 0.5 mmol/L higher than Plasma range. Chloride, Plasma 103 97 - 107 mmol/L 09/15/2022 10:45 AM [facility] CO2, Plasma 23 22 - 29 mmol/L 09/15/2022 10:45 AM [facility] Anion Gap 13 6 - 16 mmol/L 09/15/2022 10:45 AM [facility] Total Calcium, Plasma 9.2 8.9 - 10.2 mg/dL 09/15/2022 10:45 AM [facility] Total Protein 7.9 6.3 - 7.9 g/dL 09/15/2022 10:45 AM [facility] Albumin, Plasma 4.5 3.5 - 5.2 g/dL 09/15/2022 10:45 AM [facility] AST, Plasma 25 11 - 32 U/L 09/15/2022 10:45 AM [facility] Comment:Hemolyzed, result ma y be falsely increased. ALT, Plasma 21 8 - 33 U/L 09/15/2022 10:45 AM [facility] Alkaline Phosphatase, Plasma 98 35 - 104 U/L 09/15/2022 10:45 AM [facility] Total Bilirubin, Plasma 0.4 0.2 - 1.1 mg/dL 09/15/2022 10:45 AM [facility] eGFRcr 113.7 mL/min/1.7 3m*2 09/15/2022 10:45 AM [facility] Comment: Reported eGFRcr in mL/min/1.73m2 is based the CKD-EPI 2020 equation that does not use a race coefficient. Effective 04/07/22 our laboratory changed the eGFR calculation to the CKD-EPI 2020 equation from the previously reported eGFR, based on the MDRD equation. ??For comparisons between the two equations, please see laboratory website: ??[email or web address].[employer]/[facility] Blood Venous blood specimen / Unknown Venipuncture / Unknown 09/15/2022 10:00 AM EST 09/15/2022 10:05 AM EST Isacc Salter MD LAB BLOOD ORDERABLES Final Resul t [facility] [address] [place], [place] [id number] * EKG now - STAT (adult) (09/15/2022 9:39 AM EST) EKG DIAGNOSIS CLASS Abnormal MUSE ECG Ventricular Rate 88 BPM MUSE ECG Atrial Rate 88 BPM MUSE ECG AL Interval 152 ms MUSE ECG QRSD Interval 84 ms MUSE ECG QT Interval 352 ms MUSE ECG QTC Interval 425 ms MUSE ECG P [place] 72 degrees MUSE ECG R [place] 61 degrees MUSE ECG T Wave [place] 32 degrees MUSE ECG Diagnosis Normal sinus rhythm MUSE ECG Diagnosis Cannot rule out MUSE ECG Diagnosis Anterior infarct MUSE ECG Diagnosis , age undetermined MUSE ECG Diagnosis Abnormal ECG MUSE ECG Diagnosis Confirmed by Luis Ellison ([id number]) on 09/15/2022 9:58:15 AM MUSE ECG 09/15/2022 9:39 AM EST 09/15/2022 9:58 AM EST Hank Verma MD ECG ORDERABLES Final Resul t MUSE ECG documented in this encounter Visit Diagnoses Diagnosis Nonintractable episodic headache, unspecified headache type- Primary Confusion Unspecified psychosis Anger documented in this encounter Administered Medications Inactive Administered Medications - up to 3 most recent administrations Medication Order MAR Action Action Date Dose Rate Site lactated Ringer's infusion 1,000 mL 1,000 mL, Intravenous, Once, 1 dose, On Tue09/15/22 at 0955, STAT New Bag 09/15/2022 11:18 AM EST 1,000 mL documented in this encounter Active and Recently Administered Medications Times are shown in EST. Scheduled Medication Order 09/13/2022 09/14/2022 09/15/2022 lactated Ringer's infusion 1,000 mL (COMPLETED) 1,000 mL, Intravenous, Once, 1 dose, On Tue09/15/22 at 0955, STAT 1118 (New Bag - Prov ider: Jese Ugarte) documented in this encounter Care Teams Reproductive Healthcare Assistant Relationship Specialty Start Date End Date Pcp, Ju[facility] [address] [place] [address] PCP - General Family Medicine 09/15/22 documented as of this encounter
--- OUTSIDE RECORDS SUMMARY | 2024-08-08 14:36 | XMS_ITS | Encounter Summary ---
Author Organization [facility] Address [address] [place] [address] Care Team Providers Care Union Organizer Name Role Phone Unavailable Primary Care Provider Unavailabl e Encounter Details Date Type Department Care Team (Late st Contact Info) Description 03/30/2019 [employer] Encounter HISTORICAL OPHTHALMOLOGY [address] [place] [address] Shawanda Thompson MD [address] [address] Social History Tobacco Use Types [...]
--- OUTSIDE RECORDS SUMMARY | 2024-08-08 14:36 | XMS_ITS | Encounter Summary ---
Author Organization [facility] Address [address] [place] [address] Care Team Providers Care Assistant Loan Processor Name Role Phone Unavailable Primary Care Provider Unavailabl e Encounter Details Date Type Department Care Team (Late st Contact Info) Description 03/14/2019 [facility] [employer] Encounter HISTORICAL OPHTHALMOLOGY [address] [place] [address] Shawanda Thompson MD [address] [address] Social History Tobacco Use Types [...]
--- OUTSIDE RECORDS SUMMARY | 2024-08-08 14:36 | XMS_ITS | Encounter Summary ---
Author Organization [facility] Address [address] [place] [id number] Care Team Providers Care Finishing Range Feeder Name Role Phone Provider, No Known Primary Care Provider Unavail able Reason for Visit * Reason Comments Abdominal Pain Encounter Details Date Type Department Care Team (Late st Contact Info) Description 01/26/2017 4:42 PM EDT - 01/26/2017 10:22 PM EDT Emergency [facility] [address] [place] [id number] Evan Figueroa DO [address] [facility] [place], [place] [id number] Generalized abdominal pain (Primary Dx); Diarrhea, unspecified type; Leukocytosis, unspecified type Discharge Disposition: Home or Self Care Social History Tobacco Use Types Packs/Day Years Used Date Smoking Tobacco: Former Comments:QUIT 4 YEARS AGO Alcohol Use Standard Drinks/Week Comments Yes 0 (1 standard drink = 0.6 oz pure alcohol) EVERY FEW DAYS HAS A FEW DRINKS IN THE EVENING Comments Unknown Sex and Gender Information Value Date Recorded Sex Assigned at Not on file Legal Sex Female 10:06 AM EDT Gender Identity Not on file Sexual Orientation Not on file documented as of this encounter Last Filed Vital Signs Vital Sign Reading Time Taken Comments Blood Pressure 123/75 01/26/2017 10:20 PM EDT Pulse 87 01/26/2017 10:20 PM EDT Temperature 37.4 ??C (99.4 ??F) 01/26/2017 10:20 PM E DT Respiratory Rate 18 01/26/2017 10:20 PM EDT Oxygen Saturation 97% 01/26/2017 10:20 PM EDT Inhaled Oxygen Concentration - - Weight 85.7 kg (189 lb) 01/26/2017 3:01 PM EDT Height 160 cm (5' 3 ) 01/26/2017 3:01 PM EDT Body Mass Index 33.48 01/26/2017 3:01 PM EDT documented in this encounter Discharge Instructions * Discharge Instructions* Evan Figueroa DO - 01/26/2017 9:51 PM EDT FOLLOW UP WITH YOUR PCP TOMORROW FOR REEVALUATION AND FURTHER MANAGEMENT. IF YOU ARE UNABLE TO FOLLOW UP WITH YOU PCP, RETURN TO THE EMERGENCY DEPARTMENT FOR RE-EVALUATION. * Attachments The following attachments cannot be sent through Care Everywhere. * ABDOMINAL PAIN, ADULT ([facility]) * DIARRHEA, ADULT ([facility]) documented in this encounter Medications at Time of Discharge ciprofloxacin (CIPRO) 500 MG tablet Take 1 tablet by mouth 2 (Two) Times a Day for 7 days. 14 tablet 01/26/2017 02/02/2017 metroNIDAZOLE (FLAGYL) 500 MG tablet Take 1 tablet by mouth 3 (Three) Times a Day for 7 days. 21 tablet 01/26/2017 02/02/2017 lisdexamfetamine (VYVANSE) 40 MG capsule Take 40 mg by mouth Every Morning. 07/24/2024 ondansetron (ZOFRAN) 4 MG tablet Take 1 tablet by mouth Every 6 (Six) Hours As Needed for Nausea or Vomiting. 8 tablet 01/26/2017 07/24/2024 pantoprazole (PROTONIX) 40 MG EC tablet Take 1 tablet by mouth Daily. 20 tablet 01/26/2017 07/24/2024 documented as of this encounter ED Notes * Evan Figueroa DO - 01/26/2017 5:09 PM EDT Subjective HPI Comments: 31 y.o. female presents to the ED with c/o abdominal pain. She reports that this morning she woke up with a burning sensation in her abdomen that was shortly accompanied by nausea and vomiting. She states that the pain gradually got worse during the day and was only able to keep it atbay by sipping water. She also complains of chills. She reports that she drinks around 2 times a week but has been drinking less recently. She has hx of asthma and colitis. No other acute complaints at this time. Patient is a 31 y.o. female presenting with abdominal pain. History provided by: Patient Abdominal Pain Pain location: Generalized Pain quality: burning Pain severity: Moderate Onset quality: Sudden Timing: Constant Progression: Worsening Chronicity: New Relieved by: Liquids Worsened by: Nothing Associated symptoms: chills, nausea and vomiting Review of Systems Constitutional: Positive for chills. Gastrointestinal: Positive for abdominal pain, nausea and vomiting. All other systems reviewed and are negative. Past Medical History: Diagnosis Date ??? Asthma ??? Colitis No Known Allergies Past Surgical History: Procedure Laterality Date ??? TUBAL ABDOMINAL LIGATION History reviewed. No pertinent family history. Social History Social History ??? Marital status: Spouse name: N/A ??? Number of children: N/A ??? Years of education: N/A Social History Main Topics ??? Smoking status: Former Smoker ??? Smokeless tobacco: None Comment: QUIT 4 YEARS AGO ??? Alcohol use Yes Comment: EVERY FEW DAYS HAS A FEW DRINKS IN THE EVENING ??? Drug use: Yes Special: Marijuana Comment: OCCASIONAL MARIJUANA ??? Sexual activity: Not Asked Other Topics Concern ??? None Social History Narrative ??? None Objective Physical Exam Constitutional: She is oriented to person, place, and time. She appears well- developed and well-nourished. No distress. HENT: Head: Normocephalic and atraumatic. Eyes: Pupils are equal, round, and reactive to light. Neck: Normal range of motion. Cardiovascular: Normal rate, regular rhythm and normal heart sounds. Exam reveals no gallop and no friction rub. No murmur heard. Pulmonary/Chest: Effort normal. No respiratory distress. Abdominal: Soft. There is tenderness (Moderate epigastric discomfort ). There is no rebound and no guarding. Musculoskeletal: Normal range of motion. She exhibits no edema, tenderness or deformity. Neurological: She is alert and oriented to person, place, and time. Skin: Skin is warm and dry. She is not diaphoretic. Psychiatric: She has a normal mood and affect. Her behavior is normal. Nursing note and vitals reviewed. Procedures ED Course ED Course Recent Results (from the past 24 hour(s)) Comprehensive Metabolic Panel Collection Time: 01/26/17 3:13 PM Result Value Ref Range Glucose 115 (H) 70 - 100 mg/dL BUN 12 9 - 23 mg/dL Creatinine 0.70 0.60 - 1.30 mg/dL Sodium 139 132 - 146 mmol/L Potassium 4.0 3.5 - 5.5 mmol/L Chloride 106 99 - 109 mmol/L CO2 27.0 20.0 - 31.0 mmol/L Calcium 9.8 8.7 - 10.4 mg/dL Total Protein 8.0 5.7 - 8.2 g/dL Albumin 4.70 3.20 - 4.80 g/dL ALT (SGPT) 27 7 - 40 U/L AST (SGOT) 24 0 - 33 U/L Alkaline Phosphatase 105 (H) 25 - 100 U/L Total Bilirubin 0.6 0.3 - 1.2 mg/dL eGFR Non Amer 96 >60 mL/min/1.73 Globulin 3.3 gm/dL A/G Ratio 1.4 (L) 1.5 - 2.5 g/dL BUN/Creatinine Ratio 17.1 7.0 - 25.0 Anion Gap 6.0 3.0 - 11.0 mmol/L Lipase Collection Time: 01/26/17 3:13 PM Result Value Ref Range Lipase 33 6 - 51 U/L Light Blue Top Collection Time: 01/26/17 3:13 PM Result Value Ref Range Extra Tube hold for add-on Green Top (Gel) Collection Time: 01/26/17 3:13 PM Result Value Ref Range Extra Tube Hold for add-ons. Lavender Top Collection Time: 01/26/17 3:13 PM Result Value Ref Range Extra Tube hold for add-on Gold Top - SST Collection Time: 01/26/17 3:13 PM Result Value Ref Range Extra Tube Hold for add-ons. CBC Auto Differential Collection Time: 01/26/17 3:13 PM Result Value Ref Range WBC 21.19 (H) 3.50 - 10.80 10*3/mm3 RBC 4.91 3.89 - 5.14 10*6/mm3 Hemoglobin 14.7 11.5 - 15.5 g/dL Hematocrit 45.0 (H) 34.5 - 44.0 % MCV 91.6 80.0 - 99.0 fL MCH 29.9 27.0 - 31.0 pg MCHC 32.7 32.0 - 36.0 g/dL RDW 13.5 11.3 - 14.5 % RDW-SD 45.5 37.0 - 54.0 fl MPV 11.4 6.0 - 12.0 fL Platelets 216 150 - 450 10*3/mm3 Neutrophil % 90.6 (H) 41.0 - 71.0 % Lymphocyte % 4.4 (L) 24.0 - 44.0 % Monocyte % 4.3 0.0 - 12.0 % Eosinophil % 0.3 0.0 - 3.0 % Basophil % 0.1 0.0 - 1.0 % Immature Grans % 0.3 0.0 - 0.6 % Neutrophils, Absolute 19.18 (H) 1.50 - 8.30 10*3/mm3 Lymphocytes, Absolute 0.94 0.60 - 4.80 10*3/mm3 Monocytes, Absolute 0.91 0.00 - 1.00 10*3/mm3 Eosinophils, Absolute 0.06 (L) 0.10 - 0.30 10*3/mm3 Basophils, Absolute 0.03 0.00 - 0.20 10*3/mm3 Immature Grans, Absolute 0.07 (H) 0.00 - 0.03 10*3/mm3 Urinalysis With / Culture If Indicated Collection Time: 01/26/17 4:48 PM Result Value Ref Range Color, UA Yellow Yellow, Straw Appearance, UA Cloudy (A) Clear pH, UA 6.0 5.0 - 8.0 Specific [place], UA 1.025 1.001 - 1.030 Glucose, UA Negative Negative Ketones, UA Negative Negative Bilirubin, UA Negative Negative Blood, UA Negative Negative Protein, UA Negative Negative Leuk Esterase, UA Small (1+) (A) Negative Nitrite, UA Negative Negative Urobilinogen, UA 0.2 E.U./dL 0.2 - 1.0 E.U./dL Urinalysis, Microscopic Only Collection Time: 01/26/17 4:48 PM Result Value Ref Range RBC, UA 0-2 None Seen, 0-2 /HPF WBC, UA 3-5 (A) None Seen /HPF Bacteria, UA 4+ (A) None Seen, Trace /HPF Squamous Epithelial Cells, UA 7-12 (A) None Seen, 0-2 /HPF Hyaline Casts, UA 0-6 0 - 6 /LPF Mucus, UA Moderate/2+ (A) None Seen, Trace /HPF Methodology Manual Light Microscopy POCT , urine Collection Time: 01/26/17 4:49 PM Result Value Ref Range HCG, Urine, QL Negative Negative Lot Number [id number] Internal Positive Control Positive Internal Negative Control Negative Urinalysis With / Culture If Indicated Collection Time: 01/26/17 9:04 PM Result Value Ref Range Color, UA Yellow Yellow, Straw Appearance, UA Clear Clear pH, UA 6.0 5.0 - 8.0 Specific [place], UA 1.052 (H) 1.001 - 1.030 Glucose, UA Negative Negative Ketones, UA Negative Negative Bilirubin, UA Negative Negative Blood, UA Negative Negative Protein, UA Negative Negative Leuk Esterase, UA Negative Negative Nitrite, UA Negative Negative Urobilinogen, UA 0.2 E.U./dL 0.2 - 1.0 E.U./dL Note: In addition to lab results from this visit, the labs listed above may include labs taken at another facility or during a different encounter within the last 24 hours. Please correlate lab timeswith ED admission and discharge times for further clarification of the services performed during this visit. CT Abdomen Pelvis With Contrast Preliminary Result Fluid filled but nondistended colon, consistent with diarrhea of any etiology. No particular features are seen to suggest a colitis. No other evidence of acute inflammatory process or other acute disease. DICTATED: 01/26/2017 EDITED: 01/26/2017 Vitals: 01/26/17 1800 01/26/17 1830 01/26/17 1900 01/26/17 2057 BP: 120/65 108/54 115/57 119/53 BP Location: Left arm Patient Position: Lying Pulse: 81 90 88 94 Resp: 16 16 16 20 Temp: TempSrc: SpO2: 98% 100% 99% 96% Weight: Height: Medications sodium chloride 0.9 % flush 10 mL (not administered) Morphine sulfate (PF) injection 2 mg (2 mg Intravenous Given 01/26/172008) sodium chloride 0.9 % bolus 2,000 mL (0 mL Intravenous Stopped 01/26/172103) ondansetron (ZOFRAN) injection 4 mg (4 mg Intravenous Given 01/26/171728) pantoprazole (PROTONIX) injection 40 mg (40 mg Intravenous Given 5/17/17 1731) diatrizoate meglumine-sodium (GASTROGRAFIN) 66-10 % solution - ADS Override Pull ( Given 01/26/171819) iopamidol (ISOVUE-300) 61 % injection 100 mL (95 mL Intravenous Given 01/26/171909) ECG/EMG Results (last 24 hours) No results found for the last 24 hours. Pt is currently tolerating PO fluids and states that she is feeling better. Given her significantlyelevated WBC count, I have recommended that she have a low threshold for return to the Emergency Department should symptoms persist, worsen, or other concerns arise. She and are comfortable with this plan. MDM Final diagnoses: Generalized abdominal pain Diarrhea, unspecified type Leukocytosis, unspecified type Documentation assistance provided by harry Levy. Information recorded by the scribe was done at my direction and has been verified and validated by me. Maris Levy 01/26/17 1732 Maris Levy 01/26/17 0409 Evan Figueroa DO 01/27/17 1407 documented in this encounter Plan of Treatment Not on file documented as of this encounter Procedures Procedure Name Priority Date/Time Associated Diagnosis Comments URINALYSIS W/ CULTURE IF INDICATED STAT 01/26/2017 9:[address] ABDOMEN PELVIS W CONTRAST STAT 01/26/2017 7:20 PM EDT POCT PEFORM URINE STAT 01/26/2017 4:49 PM EDT URINALYSIS, MICROSCOPIC ONLY STAT 01/26/2017 4:48 PM EDT URINALYSIS W/ CULTURE IF INDICATED STAT 01/26/2017 4:48 PM EDT URINE CULTURE STAT 01/26/2017 4:48 PM EDT GOLD TOP - SST STAT 01/26/2017 3:13 PM EDT DK GREEN TOP STAT 01/26/2017 3:13 PM EDT CBC WITH AUTO DIFFERENTIAL STAT 01/26/2017 3:13 PM EDT LAVENDER TOP STAT 01/26/2017 3:13 PM EDT LIGHT BLUE TOP STAT 01/26/2017 3:13 PM EDT RAINBOW DRAW STAT 01/26/2017 3:13 PM EDT CBC AND DIFFERENTIAL STAT 01/26/2017 3:13 PM EDT LIPASE STAT 01/26/2017 3:13 PM EDT COMPREHENSIVE METABOLIC PANEL STAT 01/26/2017 3:13 PM EDT documented in this encounter Results * (ABNORMAL) Urinalysis With / Culture If Indicated (01/26/2017 9:04 PM EDT) Color, UA Yellow Yellow, Straw 01/26/2017 9:14 PM EDT [facility] Appearance, UA Clear Clear 01/26/2017 9:14 PM EDT [facility] pH, UA 6.0 5.0 - 8.0 01/26/2017 9:14 PM EDT [facility] Specific [place], UA 1.052(H) 1.001 - 1.030 01/26/2017 9:14 PM EDT [facility] Glucose, UA Negative Negative 01/26/2017 9:14 PM EDT [facility] Ketones, UA Negative Negative 01/26/2017 9:14 PM EDT [facility] Bilirubin, UA Negative Negative 01/26/2017 9:14 PM EDT [facility] Blood, UA Negative Negative 01/26/2017 9:14 PM EDT [facility] Protein, UA Negative Negative 01/26/2017 9:14 PM EDT [facility] Leuk Esterase, UA Negative Negative 01/26/2017 9:14 PM EDT [facility] Nitrite, UA Negative Negative 01/26/2017 9:14 PM EDT [facility] Urobilinogen, UA 0.2 E.U./dL 0.2 - 1.0 E.U./dL 01/26/2017 9:14 PM EDT [facility] Urine Urine specimen obtained via straight catheter / Unknown Collection / Unknown 01/26/2017 9:04 PM EDT 01/26/2017 9:10 PM EDT Narrative [facility] - 01/26/2017 9:14 PM EDT Urine microscopic not indicated. us Evan Figueroa DO URINE ORDERABLES Final Result [facility]
[address] [place] [address], * CT Abdomen Pelvis With Contrast (01/26/2017 7:20 PM EDT) Anatomical Region Laterality Modality Abdomen, Pelvis N/A Computed Tomogra phy 01/26/2017 8:24 PM EDT Impressions 01/27/2017 10:54 PM EDT Fluid filled but nondistended colon, consistent with diarrhea of any etiology. No particular features are seen to suggest a colitis. No other evidence of acute inflammatory process or other acute disease. DICTATED: ? 01/26/2017 EDITED: ? 01/26/2017 This report was finalized on 01/27/2017 10:[address] Crow Flores MD. Narrative 01/27/2017 10:54 PM EDT EXAMINATION: CT ABDOMEN AND PELVIS W/CONTRAST - 01/26/2017 INDICATION: Upper abdominal pain. TECHNIQUE: 5 mm postoral and IV contrast portal venous phase and delayed venous phase images through the abdomen and pelvis. The radiation dose reduction device was turned on for each scan per the ALARA (As Low as Reasonably Achievable) protocol. COMPARISON: None. FINDINGS: Patient history indicates upper abdominal pain, burning sensation in abdomen, nausea and vomiting. Previous history of colitis. The included lower lungs appear clear. Diffuse fatty liver change is not unusual for patient's body habitus. The spleen is not enlarged. No significant abnormalities are seen of the gallbladder, pancreas, adrenal glands, or kidneys. No upper abdominal free air, ascites, adenopathy, or acute inflammatory focus is seen. Regarding the lower abdomen and pelvis, the colon is nondistended, but contains only fluid, no stool, consistent with diarrhea of any etiology. No pericolonic inflammatory changes are identified. The appendix and terminal ileum appear normal. The uterus appears grossly normal. Ovaries are tentatively identified, grossly normal in size, and no cyst or mass is seen. Delayed images show normal contrast opacification of the bladder. No abnormally enhancing bowel loops are seen. Procedure Note Crow Flores MD - 01/27/2017 EXAMINATION: CT ABDOMEN AND PELVIS W/CONTRAST - 01/26/2017 INDICATION: Upper abdominal pain. TECHNIQUE: 5 mm postoral and IV contrast portal venous phase and delayed venous phase images through the abdomen and pelvis. The radiation dose reduction device was turned on for each scan per the ALARA (As Low as Reasonably Achievable) protocol. COMPARISON: None. FINDINGS: Patient history indicates upper abdominal pain, burning sensation in abdomen, nausea and vomiting. Previous history of colitis. The included lower lungs appear clear. Diffuse fatty liver change is not unusual for patient's body habitus. The spleen is not enlarged. No significant abnormalities are seen of the gallbladder, pancreas, adrenal glands, or kidneys. No upper abdominal free air, ascites, adenopathy, or acute inflammatory focus is seen. Regarding the lower abdomen and pelvis, the colon is nondistended, but contains only fluid, no stool, consistent with diarrhea of any etiology. No pericolonic inflammatory changes are identified. The appendix and terminal ileum appear normal. The uterus appears grossly normal. Ovaries are tentatively identified, grossly normal in size, and no cyst or mass is seen. Delayed images show normal contrast opacification of the bladder. No abnormally enhancing bowel loops are seen. IMPRESSION: Fluid filled but nondistended colon, consistent with diarrhea of any etiology. No particular features are seen to suggest a colitis. No other evidence of acute inflammatory process or other acute disease. DICTATED: 01/26/2017 EDITED: 01/26/2017 This report was finalized on 01/27/2017 10:[address] Crow Flores MD. Evan Figueroa DO IMG CT ORDERABLES Final Result * POCT , urine (01/26/2017 4:49 PM EDT) HCG, Urine, QL Negative Negative [facility] Lot Number [id number] [facility] Internal Positive Control Positive [facility] Internal Negative Control Negative [facility] Urine 01/26/2017 4:49 PM EDT us Evan Figueroa DO POINT OF CARE TEST ORDERABLES Fi nal Result [facility]
[address] [place] [address], * (ABNORMAL) Urine Culture (01/26/2017 4:48 PM EDT) Urine Culture 10,000-20,000 CFU/mL Escherichia coli(A) DHRUV 01/29/2017 1:16 PM EDT [facility] Urine Urine specimen collection, clean catch / Unknown Collection / Unknown 01/26/2017 4:48 PM EDT 01/26/2017 4:52 PM EDT Narrative Organism Antibiotic Method Susceptibility Escherichia coli Ampicillin DHRUV <=8 ug/ml: Susceptible Escherichia coli Ampicillin + Sulbactam DHRUV <=8/4 ug/ml: Susceptible Escherichia coli Aztreonam DHRUV <=8 ug/ml: Susceptible Escherichia coli Cefepime DHRUV <=8 ug/ml: Susceptible Escherichia coli Cefotaxime DHRUV <=2 ug/ml: Susceptible Escherichia coli Ceftriaxone DHRUV <=8 ug/ml: Susceptible Escherichia coli Cefuroxime DHRUV <=4 ug/ml: Susceptible Escherichia coli Cephalothin DHRUV <=8 ug/ml: Susceptible Escherichia coli Ertapenem DHRUV <=1 ug/ml: Susceptible Escherichia coli Gentamicin DHRUV <=4 ug/ml: Susceptible Escherichia coli Levofloxacin DHRUV <=2 ug/ml: Susceptible Escherichia coli Meropenem DHRUV <=1 ug/ml: Susceptible Escherichia coli Nitrofurantoin DHRUV <=32 ug/ml: Susceptible Escherichia coli Piperacillin + Tazobactam DHRUV <=16 ug/ml: Susceptible Escherichia coli Tetracycline DHRUV <=4 ug/ml: Susceptible Escherichia coli Tobramycin DHRUV <=4 ug/ml: Susceptible Escherichia coli Trimethoprim + Sulfamethoxazole DHRUV <=2/38 ug/ml: Susceptible Evan Figueroa DO MICROBIOLOGY - GENERAL ORDERABLE S Final Result Performing Organization Address City/[facility]/ZIP Co de Phone Number [facility]
[address] [place] [address], * (ABNORMAL) Urinalysis, Microscopic Only (01/26/2017 4:48 PM EDT) RBC, UA 0-2 None Seen, 0-2 /HPF 01/26/2017 5:28 PM EDT [facility] WBC, UA 3-5(A) None Seen /HPF 01/26/2017 5:28 PM EDT [facility] Bacteria, UA 4+(A) None Seen, Trace /HPF 01/26/2017 5:28 PM EDT [facility] Squamous Epithelial Cells, UA 7-12(A) None Seen, 0-2 /HPF 01/26/2017 5:28 PM EDT [facility] Hyaline Casts, UA 0-6 0 - 6 /LPF 01/26/2017 5:28 PM EDT [facility] Mucus, UA Moderate/2+(A) None Seen, Trace /HPF 01/26/2017 5:28 PM EDT [facility] Methodology Manual Light Microscopy 01/26/2017 5:28 PM EDT [facility] Urine Urine specimen collection, clean catch / Unknown Collection / Unknown 01/26/2017 4:48 PM EDT 01/26/2017 4:52 PM EDT us Evan Figueroa DO URINE ORDERABLES Final Result [facility]
[address] [place] [address], * (ABNORMAL) Urinalysis With / Culture If Indicated (01/26/2017 4:48 PM EDT) Color, UA Yellow Yellow, Straw 01/26/2017 5:28 PM EDT [facility] Appearance, UA Cloudy(A) Clear 01/26/2017 5:28 PM EDT [facility] pH, UA 6.0 5.0 - 8.0 01/26/2017 5:28 PM EDT [facility] Specific [place], UA 1.025 1.001 - 1.030 01/26/2017 5:28 PM EDT [facility] Glucose, UA Negative Negative 01/26/2017 5:28 PM EDT [facility] Ketones, UA Negative Negative 01/26/2017 5:28 PM EDT [facility] Bilirubin, UA Negative Negative 01/26/2017 5:28 PM EDT [facility] Blood, UA Negative Negative 01/26/2017 5:28 PM EDT [facility] Protein, UA Negative Negative 01/26/2017 5:28 PM EDT [facility] Leuk Esterase, UA Small (1+)(A) Negative 01/26/2017 5:28 PM EDT [facility] Nitrite, UA Negative Negative 01/26/2017 5:28 PM EDT [facility] Urobilinogen, UA 0.2 E.U./dL 0.2 - 1.0 E.U./dL 01/26/2017 5:28 PM EDT [facility] Urine Urine specimen collection, clean catch / Unknown Collection / Unknown 01/26/2017 4:48 PM EDT 01/26/2017 4:52 PM EDT us Evan Figueroa DO URINE ORDERABLES Final Result [facility]
[address] [place] [address], * (ABNORMAL) CBC Auto Differential (01/26/2017 3:13 PM EDT) WBC 21.19(H) 3.50 - 10.80 10*3/mm3 01/26/2017 3:25 PM EDT [facility] RBC 4.91 3.89 - 5.14 10*6/mm3 01/26/2017 3:25 PM EDT [facility] Hemoglobin 14.7 11.5 - 15.5 g/dL 01/26/2017 3:25 PM EDT [facility] Hematocrit 45.0(H) 34.5 - 44.0 % 01/26/2017 3:25 PM EDT [facility] MCV 91.6 80.0 - 99.0 fL 01/26/2017 3:25 PM EDT [facility] MCH 29.9 27.0 - 31.0 pg 01/26/2017 3:25 PM EDT [facility] MCHC 32.7 32.0 - 36.0 g/dL 01/26/2017 3:25 PM EDT [facility] RDW 13.5 11.3 - 14.5 % 01/26/2017 3:25 PM EDT [facility] RDW-SD 45.5 37.0 - 54.0 fl 01/26/2017 3:25 PM EDT [facility] MPV 11.4 6.0 - 12.0 fL 01/26/2017 3:25 PM EDT [facility] Platelets 216 150 - 450 10*3/mm3 01/26/2017 3:25 PM EDT [facility] Neutrophil % 90.6(H) 41.0 - 71.0 % 01/26/2017 3:25 PM EDT [facility] Lymphocyte % 4.4(L) 24.0 - 44.0 % 01/26/2017 3:25 PM EDT [facility] Monocyte % 4.3 0.0 - 12.0 % 01/26/2017 3:25 PM EDT [facility] Eosinophil % 0.3 0.0 - 3.0 % 01/26/2017 3:25 PM EDT [facility] Basophil % 0.1 0.0 - 1.0 % 01/26/2017 3:25 PM EDT [facility] Immature Grans % 0.3 0.0 - 0.6 % 01/26/2017 3:25 PM EDT [facility] Neutrophils, Absolute 19.18(H) 1.50 - 8.30 10*3/mm3 01/26/2017 3:25 PM EDT [facility] Lymphocytes, Absolute 0.94 0.60 - 4.80 10*3/mm3 01/26/2017 3:25 PM EDT [facility] Monocytes, Absolute 0.91 0.00 - 1.00 10*3/mm3 01/26/2017 3:25 PM EDT [facility] Eosinophils, Absolute 0.06(L) 0.10 - 0.30 10*3/mm3 01/26/2017 3:25 PM EDT [facility] Basophils, Absolute 0.03 0.00 - 0.20 10*3/mm3 01/26/2017 3:25 PM EDT [facility] Immature Grans, Absolute 0.07(H) 0.00 - 0.03 10*3/mm3 01/26/2017 3:25 PM EDT [facility] Blood Venipuncture / Unknown 01/26/2017 3:13 PM EDT 01/26/2017 3:22 PM EDT [facility] BLOOD ORDERABLES Final Resul t Performing Organization Address City/[facility]/ZIP Co de Phone Number [facility]
[address] [place], [place] [id number], * Gold Top - [facility] (01/26/2017 3:13 PM EDT) Extra Tube Hold for add-ons. 01/26/2017 5:01 PM EDT [facility] Comment:Auto resulted. Blood Venipuncture / Unknown 01/26/2017 3:13 PM EDT 01/26/2017 3:22 PM EDT Evan Arcadia DO LAB BLOOD ORDER ONLY Final Resul t [facility]
[address] [place] [address], [place] [phone] * Lavender Top (01/26/2017 3:13 PM EDT) Extra Tube hold for add-on 01/26/2017 5:01 PM EDT [facility] Comment:Auto resulted Blood Venipuncture / Unknown 01/26/2017 3:13 PM EDT 01/26/2017 3:22 PM EDT us Evan Arcadia DO LAB BLOOD ORDER ONLY Final Resul t Performing Organization Address [facility] Co de Phone Number [facility]
[address] [place] [address], [place] [phone] * Green Top (Gel) (01/26/2017 3:13 PM EDT) Extra Tube Hold for add-ons. 01/26/2017 5:01 PM EDT [facility] Comment:Auto resulted. Blood Venipuncture / Unknown 01/26/2017 3:13 PM EDT 01/26/2017 3:22 PM EDT us Evan Arcadia DO LAB BLOOD ORDER ONLY Final Resul t Performing Organization Address [facility] Co de Phone Number [facility]
[address] [place] [address], [place] [phone] * Light Blue Top (01/26/2017 3:13 PM EDT) Extra Tube hold for add-on 01/26/2017 5:01 PM EDT [facility] Comment:Auto resulted Blood Venipuncture / Unknown 01/26/2017 3:13 PM EDT 01/26/2017 3:22 PM EDT us Evan Arcadia DO LAB BLOOD ORDER ONLY Final Resul t Performing Organization Address [facility] Co de Phone Number [facility]
[address] [place] [address], * Lipase (01/26/2017 3:13 PM EDT) Lipase 33 6 - 51 U/L 01/26/2017 3:49 PM EDT [facility] Blood Venipuncture / Unknown 01/26/2017 3:13 PM EDT 01/26/2017 3:22 PM EDT Evan Henry DO LAB BLOOD ORDERABLES Final Resul t Performing Organization Address [facility] Co de Phone Number [facility]
[address] [place] [address], * (ABNORMAL) Comprehensive Metabolic Panel (01/26/2017 3:13 PM EDT) Glucose 115(H) 70 - 100 mg/dL 01/26/2017 3:49 PM EDT [facility] BUN 12 9 - 23 mg/dL 01/26/2017 3:49 PM EDT [facility] Creatinine 0.70 0.60 - 1.30 mg/dL 01/26/2017 3:49 PM EDT [facility] Sodium 139 132 - 146 mmol/L 01/26/2017 3:49 PM EDT [facility] Potassium 4.0 3.5 - 5.5 mmol/L 01/26/2017 3:49 PM EDT [facility] Chloride 106 99 - 109 mmol/L 01/26/2017 3:49 PM EDT [facility] CO2 27.0 20.0 - 31.0 mmol/L 01/26/2017 3:49 PM EDT [facility] Calcium 9.8 8.7 - 10.4 mg/dL 01/26/2017 3:49 PM EDT [facility] Total Protein 8.0 5.7 - 8.2 g/dL 01/26/2017 3:49 PM EDT [facility] Albumin 4.70 3.20 - 4.80 g/dL 01/26/2017 3:49 PM EDT [facility] ALT (SGPT) 27 7 - 40 U/L 01/26/2017 3:49 PM EDT [facility] AST (SGOT) 24 0 - 33 U/L 01/26/2017 3:49 PM EDT [facility] Alkaline Phosphatase 105(H) 25 - 100 U/L 01/26/2017 3:49 PM EDT [facility] Total Bilirubin 0.6 0.3 - 1.2 mg/dL 01/26/2017 3:49 PM EDT [facility] eGFR Non Amer 96 >60 mL/min/1.7 3 01/26/2017 3:49 PM EDT [facility] Globulin 3.3 gm/dL 01/26/2017 3:49 PM EDT [facility] A/G Ratio 1.4(L) 1.5 - 2.5 g/dL 01/26/2017 3:49 PM EDT [facility] BUN/Creatinine Ratio 17.1 7.0 - 25.0 01/26/2017 3:49 PM EDT [facility] Anion Gap 6.0 3.0 - 11.0 mmol/L 01/26/2017 3:49 PM EDT [facility] Blood Venipuncture / Unknown 01/26/2017 3:13 PM EDT 01/26/2017 3:22 PM EDT [facility] - 01/26/2017 3:49 PM EDT [employer] Guidelines Stage ? Description ?GFR 1 ? Normal or High ? 90+ 2 ? Mild decrease ?60-89 3 ? Moderate decrease ??30-59 4 ? Severe decrease ?15-29 5 ? Kidney failure ? <15 us Evan Figueroa DO LAB BLOOD ORDERABLES Final Resul t [facility]
[address] [id number], documented in this encounter Visit Diagnoses Diagnosis Generalized abdominal pain- Primary Abdominal pain, generalized Diarrhea, unspecified type Leukocytosis, unspecified type documented in this encounter Administered Medications Inactive Administered Medications - up to 3 most recent administrations Medication Order MAR Action Action Date Dose Rate Site diatrizoate meglumine-sodium (GASTROGRAFIN) 66-10 % solution - ADS Override Pull Starting on Tue01/26/17 at 1814, For 1 dose, Created by cabinet override Used as oral contract for CT of abdomen and/or pelvis. Give 30 mL mixed in 24 oz non-carbonated liquid for each CT scan. Given 01/26/2017 6:20 PM EDT iopamidol (ISOVUE-300) 61 % injection 100 mL 100 mL, Intravenous, Once in Imaging, On Tue01/26/17 at 1906, For 1 dose Given 01/26/2017 7:10 PM EDT 95 mL Morphine sulfate (PF) injection 2 mg 2 mg, Intravenous, Every 15 Minutes PRN, Severe Pain, Starting on Tue01/26/17 at 1715, For 3 doses Given 01/26/2017 8:09 PM EDT 2 mg Given 01/26/2017 5:33 PM EDT 2 mg ondansetron (ZOFRAN) injection 4 mg 4 mg, Intravenous, Once, On Tue01/26/17 at 1713, For 1 dose, Maximum Dose 4 mg IV every 6 hours per pharmacy and therapeutics committee Given 01/26/2017 5:29 PM EDT 4 mg pantoprazole (PROTONIX) injection 40 mg 40 mg, Intravenous, Once, On Tue01/26/17 at 1715, For 1 dose, Dilute with 10 mL of 0.9% NaCl and give IV push over 2 minutes. Given 01/26/2017 5:31 PM EDT 40 mg sodium chloride 0.9 % bolus 2,000 mL 2,000 mL, Intravenous, Once, On Tue01/26/17 at 1713, For 1 dose New Bag 01/26/2017 5:25 PM EDT 2,000 mL 1000 mL/hr sodium chloride 0.9 % flush 10 mL 10 mL, Intravenous, As Needed, Line Care, Starting on Tue01/26/17 at 1506 documented in this encounter Active and Recently Administered Medications Times are shown in EDT. Scheduled Medication Order 01/24/2017 01/25/2017 01/26/2017 iopamidol (ISOVUE-300) 61 % injection 100 mL (COMPLETED) 100 mL, Intravenous, Once in Imaging, On Tue01/26/17 at 1906, For 1 dose 1910 (Given - Provid er: Dayanna Scott) ondansetron (ZOFRAN) injection 4 mg (COMPLETED) 4 mg, Intravenous, Once, On Tue01/26/17 at 1713, For 1 dose, Maximum Dose 4 mg IV every 6 hours per pharmacy and therapeutics committee 1729 (Given - Provid er: Breanne Verma RN) pantoprazole (PROTONIX) injection 40 mg (COMPLETED) 40 mg, Intravenous, Once, On Tue01/26/17 at 1715, For 1 dose, Dilute with 10 mL of 0.9% NaCl and give IV push over 2 minutes. 173 (Given - Provid er: Breanne Verma RN) sodium chloride 0.9 % bolus 2,000 mL (COMPLETED) 2,000 mL, Intravenous, Once, On Tue01/26/17 at 1713, For 1 dose 172 (New Bag - Prov ider: Breanne Verma RN)210 (Stopped - Provider: Cristiano Valenzuela) PRN Medication Order 01/24/2017 01/25/2017 01/26/2017 Morphine sulfate (PF) injection 2 mg 2 mg, Intravenous, Every 15 Minutes PRN, Severe Pain, Starting on Tue01/26/17 at 1715, For 3 doses 173 (Given - Provid er: Breanne Verma RN)2008 (Given - Provider: Agusto Pennington RN) sodium chloride 0.9 % flush 10 mL 10 mL, Intravenous, As Needed, Line Care, Starting on Tue01/26/17 at 1506 No Frequency Medication Order 01/24/2017 01/25/2017 01/26/2017 diatrizoate meglumine-sodium (GASTROGRAFIN) 66-10 % solution - ADS Override Pull (COMPLETED) Starting on Tue01/26/17 at 1814, For 1 dose, Created by cabinet override Used as oral contract for CT of abdomen and/or pelvis. Give 30 mL mixed in 24 oz non-carbonated liquid for each CT scan. 1820 (Given - Provid er: Breanne Verma, RN - Comment: IN ASIAEZA PER PROTOCOL) documented in this encounter Care Teams Finishing Range Feeder Relationship Specialty Start Date End Date Provider, [place] [address] PCP - General 01/26/17 documented as of this encounter
--- OUTSIDE RECORDS SUMMARY | 2024-08-08 14:36 | XMS_ITS | Encounter Summary ---
Author Organization [facility] Address [address] [place] [id number] Care Team Providers Care Power Line Installer Name Role Phone Provider, No Known Primary Care Provider Unavail able Reason for Visit * Reason Comments Cyst c/o cyst on right pe rineal area, h/o Barthilon cyst, c/o aches, chills, tenderness Encounter Details Date Type Department Care Team (Late st Contact Info) Description 02/14/2017 11:36 AM EDT - 02/14/2017 6:05 PM EDT Emergency [facility] [address] [place] [id number] Jos Yoo MD [address] [facility] [place] [address] Bartholin's gland abscess (Primary Dx); Leukocytosis, unspecified type Discharge Disposition: Home or Self Care Social History Tobacco Use Types Packs/Day Years Used Date Smoking Tobacco: Former Cigarettes Q uit: 09/12/2011 Alcohol Use Standard Drinks/Week Comments Yes 0 (1 standard drink = 0.6 oz pur e alcohol) OCCASIONAL Comments Unknown Sex and Gender Information Value Date Recorded Sex Assigned at Not on file Legal Sex Female 10:06 AM EDT Gender Identity Not on file Sexual Orientation Not on file documented as of this encounter Last Filed Vital Signs Vital Sign Reading Time Taken Comments Blood Pressure 110/59 02/14/2017 6:03 PM EDT Pulse 86 02/14/2017 6:03 PM EDT Temperature 37.1 ??C (98.8 ??F) 02/14/2017 6:03 PM ED T Respiratory Rate 16 02/14/2017 6:03 PM EDT Oxygen Saturation 97% 02/14/2017 6:03 PM EDT Inhaled Oxygen Concentration - - Weight 81.6 kg (180 lb) 02/14/2017 11:19 AM EDT Height 162.6 cm (5' 4 ) 02/14/2017 11:19 AM EDT Body Mass Index 30.9 02/14/2017 11:19 AM EDT documented in this encounter Discharge Instructions * Discharge Instructions* Conrado Mclain PA - 02/14/2017 5:27 PM EDT Follow up with one of the [facility] physician groups below to setup primary care. If you have trouble following up, please call Yolanda Aranda, our transitional care nurse, at . (Dr. Scott, Dr. Portillo, Dr. Hernandez, and Dr. Perez.) [facility], Primary Care, , [address], [place] [address] [facility], Primary Care, , [address] [facility] [address], [address] [place], [address] [facility], Primary Care, , [address] [facility] [address], [address] [place], [address] [facility], Primary Care, , [address], [address] [place], [address] [place] [address] [facility], Primary Care, , [address] [facility], [address] [place], [address] [place] 2 [facility], Primary Care, , [address] [place], [address] [facility], Primary Care, , [address] [facility], [address] [place], [address] [facility], Primary Care, , [address] [facility] [address], [address] [place], [address] [facility], Primary Care, , [address] [facility], [address] [place], [address] [place] ([place]ie) [facility], Primary Care, , [address], [address], [address] [place] (Joanne) [facility], Primary Care, , [address], [place], [address] [facility], Primary Care, , [address] [facility] [place], [facility] * Attachments The following attachments cannot be sent through Care Everywhere. * INCISION AND DRAINAGE (SAMMARINESE) * BARTHOLIN CYST OR ABSCESS (SAMMARINESE) * HOW TO TAKE A SITZ BATH (SAMMARINESE) documented in this encounter Medications at Time of Discharge cephalexin (KEFLEX) 500 MG capsule Take 1 capsule by mouth 2 (Two) Times a Day for 10 days. 20 capsule 02/14/2017 02/24/2017 sulfamethoxazole -trimethoprim (BACTRIM DS,SEPTRA DS) 800-160 MG per tablet Take 1 tablet by mouth 2 (Two) Times a Day for 10 days. 20 tablet 02/14/2017 02/24/2017 HYDROcodone-acet aminophen (NORCO) 5-325 MG per tablet Take 1 tablet by mouth Every 6 (Six) Hours As Needed for Moderate Pain (4-6) for up to 15 doses. 15 tablet 02/14/2017 07/24/2024 lisdexamfetamine (VYVANSE) 40 MG capsule Take 40 mg by mouth Every Morning. 07/24/2024 ondansetron (ZOFRAN) 4 MG tablet Take 1 tablet by mouth Every 6 (Six) Hours As Needed for Nausea or Vomiting. 8 tablet 01/26/2017 07/24/2024 pantoprazole (PROTONIX) 40 MG EC tablet Take 1 tablet by mouth Daily. 20 tablet 01/26/2017 07/24/2024 documented as of this encounter ED Notes * Conrado Mclain PA - 02/14/2017 5:25 PM EDTAssociated Order(s): INCISION AND DRAINAGE Images from the original note were not included. Subjective Patient is a 31 y.o. female presenting with abscess. History provided by: Patient Abscess Abscess location: Right labia Abscess quality: fluctuance and painful Duration: 3 days Progression: Worsening Context: not diabetes, not immunosuppression, not injected drug use and not skin injury Context comment: Hx of prior issues with Bartholin abscesses. Ineffective treatments: Warm compresses. Associated symptoms: no fever, no headaches, no nausea and no vomiting Risk factors: prior abscess Pt does not have a PCP or OBGYN. She explains she was seen in ED 2 weeks ago for abdominal pain andhad a high white count over 20. She states she admits to not taking the meds that were Rx includingabx. Review of Systems Constitutional: Negative for chills and fever. HENT: Negative for congestion, ear pain, sore throat and trouble swallowing. Eyes: Negative for pain, redness and visual disturbance. Respiratory: Negative for cough, chest tightness and shortness of breath. Cardiovascular: Negative for chest pain and leg swelling. Gastrointestinal: Negative for abdominal pain, constipation, diarrhea, nausea and vomiting. Genitourinary: Positive for vaginal pain. Negative for difficulty urinating, dysuria, flank pain, hematuria, vaginal bleeding and vaginal discharge. Musculoskeletal: Negative for arthralgias, back pain and joint swelling. Skin: Negative for rash and wound. Neurological: Negative for dizziness, syncope, speech difficulty, weakness, numbness and headaches. Psychiatric/Behavioral: Negative for confusion. All other systems reviewed and are negative. Past Medical History: Diagnosis Date ??? ADD (attention deficit disorder) ??? Asthma ??? Colitis No Known Allergies Past Surgical History: Procedure Laterality Date ??? TUBAL ABDOMINAL LIGATION History reviewed. No pertinent family history. Social History Social History ??? Marital status: Spouse name: N/A ??? Number of children: N/A ??? Years of education: N/A Social History Main Topics ??? Smoking status: Former Smoker Quit date: 09/12/2011 ??? Smokeless tobacco: None ??? Alcohol use Yes Comment: OCCASIONAL ??? Drug use: Yes Special: Marijuana ??? Sexual activity: Not Asked Other Topics Concern ??? None Social History Narrative ??? None Objective Physical Exam Constitutional: She is oriented to person, place, and time. Vital signs are normal. She appears well-developed. HENT: Head: Atraumatic. Nose: Nose normal. Mouth/Throat: Mucous membranes are normal. Eyes: Conjunctivae, EOM and lids are normal. Pupils are equal, round, and reactive to light. Neck: Normal range of motion. Neck supple. Cardiovascular: Regular rhythm and normal heart sounds. Tachycardia present. Pulmonary/Chest: Effort normal and breath sounds normal. She has no wheezes. Abdominal: Soft. She exhibits no distension. There is no tenderness. There is no rebound and no guarding. Genitourinary: Musculoskeletal: Normal range of motion. She exhibits no edema or tenderness. Neurological: She is alert and oriented to person, place, and time. No sensory deficit. Skin: Skin is warm and dry. No rash noted. No erythema. Psychiatric: She has a normal mood and affect. Her speech is normal and behavior is normal. Nursing note and vitals reviewed. Incision & Drainage Date/Time: 02/14/2017 6:17 PM Performed by: CONRADO MCLAIN Authorized by: JOS YOO Consent: Consent obtained: Verbal Consent given by: Patient Risks discussed: Bleeding, incomplete drainage, infection and pain Location: Type: Abscess and Bartholin cyst Size: 2-3 cm Location: Right Labia Pre-procedure details: Skin preparation: Betadine Sedation: Sedation type: Morphine and Ativan WELL SERVICE FLOORPERSON Anesthesia (see MAR for exact dosages): Anesthesia method: Local infiltration Local anesthetic: Lidocaine 1% w/o epi Procedure details: Complexity: Complex Incision types: Single straight Incision depth: Subcutaneous Scalpel blade: 11 Wound management: Irrigated with saline and probed and deloculated Drainage: Purulent and bloody Drainage amount: Moderate Wound treatment: Wound left open and drain placed (Word Cath ) Post-procedure details: Patient tolerance of procedure: Tolerated well, no immediate complications ED Course ED Course RE-examined several times in ED. Pt feeling much better after treatment in ED. She is agreeable with plan and stressed importance of taking the abx, warm compresses and close f/u with gynecology. Shewill return if worse. RAZIA query complete. Treatment plan to include limited course of prescribed controlled substance. Risks including addiction, benefits, and alternatives presented to patient. Recent Results (from the past 24 hour(s)) Comprehensive Metabolic Panel Collection Time: 02/14/17 11:59 AM Result Value Ref Range Glucose 91 70 - 100 mg/dL BUN 10 9 - 23 mg/dL Creatinine 0.60 0.60 - 1.30 mg/dL Sodium 138 132 - 146 mmol/L Potassium 3.7 3.5 - 5.5 mmol/L Chloride 112 (H) 99 - 109 mmol/L CO2 26.0 20.0 - 31.0 mmol/L Calcium 9.4 8.7 - 10.4 mg/dL Total Protein 7.5 5.7 - 8.2 g/dL Albumin 4.40 3.20 - 4.80 g/dL ALT (SGPT) 16 7 - 40 U/L AST (SGOT) 17 0 - 33 U/L Alkaline Phosphatase 87 25 - 100 U/L Total Bilirubin 0.5 0.3 - 1.2 mg/dL eGFR Non Amer 115 >60 mL/min/1.73 Globulin 3.1 gm/dL A/G Ratio 1.4 (L) 1.5 - 2.5 g/dL BUN/Creatinine Ratio 16.7 7.0 - 25.0 Anion Gap 0.0 (L) 3.0 - 11.0 mmol/L Lactic Acid, Plasma Collection Time: 02/14/17 11:59 AM Result Value Ref Range Lactate 0.9 0.5 - 2.0 mmol/L CBC Auto Differential Collection Time: 02/14/17 11:59 AM Result Value Ref Range WBC 15.84 (H) 3.50 - 10.80 10*3/mm3 RBC 4.37 3.89 - 5.14 10*6/mm3 Hemoglobin 12.7 11.5 - 15.5 g/dL Hematocrit 39.8 34.5 - 44.0 % MCV 91.1 80.0 - 99.0 fL MCH 29.1 27.0 - 31.0 pg MCHC 31.9 (L) 32.0 - 36.0 g/dL RDW 13.7 11.3 - 14.5 % RDW-SD 45.3 37.0 - 54.0 fl MPV 11.5 6.0 - 12.0 fL Platelets 175 150 - 450 10*3/mm3 Neutrophil % 77.8 (H) 41.0 - 71.0 % Lymphocyte % 14.5 (L) 24.0 - 44.0 % Monocyte % 6.9 0.0 - 12.0 % Eosinophil % 0.4 0.0 - 3.0 % Basophil % 0.2 0.0 - 1.0 % Immature Grans % 0.2 0.0 - 0.6 % Neutrophils, Absolute 12.32 (H) 1.50 - 8.30 10*3/mm3 Lymphocytes, Absolute 2.29 0.60 - 4.80 10*3/mm3 Monocytes, Absolute 1.10 (H) 0.00 - 1.00 10*3/mm3 Eosinophils, Absolute 0.07 (L) 0.10 - 0.30 10*3/mm3 Basophils, Absolute 0.03 0.00 - 0.20 10*3/mm3 Immature Grans, Absolute 0.03 0.00 - 0.03 10*3/mm3 Light Blue Top Collection Time: 02/14/17 11:59 AM Result Value Ref Range Extra Tube hold for add-on Green Top (Gel) Collection Time: 02/14/17 11:59 AM Result Value Ref Range Extra Tube Hold for add-ons. Lavender Top Collection Time: 02/14/17 11:59 AM Result Value Ref Range Extra Tube hold for add-on Gold Top - SST Collection Time: 02/14/17 11:59 AM Result Value Ref Range Extra Tube Hold for add-ons. Note: In addition to lab results from this visit, the labs listed above may include labs taken at another facility or during a different encounter within the last 24 hours. Please correlate lab timeswith ED admission and discharge times for further clarification of the services performed during this visit. No orders to display Vitals: 02/14/17 1729 02/14/17 1730 02/14/17 1745 02/14/17 1803 BP: 110/59 110/59 Pulse: 88 81 86 Resp: 16 Temp: 98.8 ??F (37.1 ??C) TempSrc: Oral SpO2: 97% 97% 97% Weight: Height: Medications sodium chloride 0.9 % flush 10 mL (not administered) DAPTOmycin (CUBICIN) 500 mg in sodium chloride 0.9 % 50 mL IVPB (0 mg Intravenous Stopped 02/14/17 1646) sodium chloride 0.9 % bolus 1,000 mL (0 mL Intravenous Stopped 02/14/17 1501) Morphine sulfate (PF) injection 4 mg (4 mg Intravenous Given 02/14/17 1321) ondansetron (ZOFRAN) injection 4 mg (4 mg Intravenous Given 02/14/17 1319) lidocaine PF 1% (XYLOCAINE) injection 20 mL (20 mL Injection Given by Other 02/14/17 1417) Morphine sulfate (PF) injection 2 mg (2 mg Intravenous Given 02/14/17 1543) LORazepam (ATIVAN) injection 0.5 mg (0.5 mg Intravenous Given 02/14/17 1546) cefTRIAXone (ROCEPHIN) IVPB 1 g (0 g Intravenous Stopped 02/14/17 1729) Morphine sulfate (PF) injection 2 mg (2 mg Intravenous Given 02/14/17 1756) MDM Final diagnoses: Bartholin's gland abscess Leukocytosis, unspecified type PADMINI Serna 02/14/17 2868 Cosigned by Jos Yoo MD at 02/16/2017 11:47 AM EDT Associated attestation - Jos Yoo MD - 02/16/2017 11:47 AM EDT For this patient encounter, I reviewed the CREDIT REVIEW ANALYST or PA documentation, treatment plan, and medical decision making. Jos Yoo MD 02/16/2017 11:47 AM documented in this encounter Plan of Treatment Not on file documented as of this encounter Procedures Procedure Name Priority Date/Time Associated Diagnosis Comments INCISION AND DRAINAGE Routine 02/16/2017 11:47 AM EDT BLOOD CULTURE STAT 02/14/2017 12:00 PM EDT BLOOD CULTURE STAT 02/14/2017 12:00 PM EDT GOLD TOP - SST STAT 02/14/2017 11:59 AM EDT DK GREEN TOP STAT 02/14/2017 11:59 AM EDT CBC WITH AUTO DIFFERENTIAL STAT 02/14/2017 11:59 AM EDT LAVENDER TOP STAT 02/14/2017 11:59 AM EDT LIGHT BLUE TOP STAT 02/14/2017 11:59 AM EDT RAINBOW DRAW STAT 02/14/2017 11:59 AM EDT CBC AND DIFFERENTIAL STAT 02/14/2017 11:59 AM EDT LACTIC ACID, PLASMA STAT 02/14/2017 1 1:59 AM EDT COMPREHENSIVE METABOLIC PANEL STAT 02/14/2017 11:59 AM EDT documented in this encounter Results * HC INCISION AND DRAINAGE BEDSIDE (02/16/2017 11:47 AM EDT) Narrative Jos Yoo MD - 02/16/2017 11:47 AM EDT PADMINI Serna ? 02/14/2017 11:21 PM Incision & Drainage Date/Time: 02/14/2017 6:17 PM Performed by: CONRADO MCLAIN Authorized by: JOS YOO Consent: ??Consent obtained: ??Verbal ??Consent given by: ??Patient ??Risks discussed: ??Bleeding, incomplete drainage, infection and pain Location: ??Type: ??Abscess and Bartholin cyst ??Size: ??2-3 cm ??Location: Right Labia Pre-procedure details: ??Skin preparation: ??Betadine Sedation: ??Sedation type: Morphine and Ativan WE[employer] SERVICE FLOORPERSON Anesthesia (see MAR for exact dosages): ??Anesthesia method: ??Local infiltration ??Local anesthetic: ??Lidocaine 1% w/o epi Procedure details: ??Complexity: ??Complex ??Incision types: ??Single straight ??Incision depth: ??Subcutaneous ??Scalpel blade: ??11 ??Wound management: ??Irrigated with saline and probed and deloculated ??Drainage: ??Purulent and bloody ??Drainage amount: ??Moderate ??Wound treatment: ??Wound left open and drain placed (Word Cath ) Post-procedure details: ??Patient tolerance of procedure: ??Tolerated well, no immediate complications us Jos Yoo MD PROCEDURE/MINOR SURGICAL ORDER EFRAIN Final Result * Blood Culture (02/14/2017 12:00 PM EDT) Blood Culture No growth at 5 days DHRUV 02/19/2017 1:01 PM EDT [facility] Blood Right upper arm structure / Unknown Venipuncture / Unknown 02/14/2017 12:00 PM EDT 02/14/2017 12:21 PM EDT us Jos Yoo MD MICROBIOLOGY - GENERAL ORDERAB LES Final Result [facility]
[address] [place] [address], * Blood Culture (02/14/2017 12:00 PM EDT) Blood Culture No growth at 5 days DHRUV 02/19/2017 1:01 PM EDT [facility] Blood Left upper arm structure / Unknown Venipuncture / Unknown 02/14/2017 12:00 PM EDT 02/14/2017 12:21 PM EDT us Jos Yoo MD MICROBIOLOGY - GENERAL ORDERAB LES Final Result [facility]
[address] [place] [address], * Gold Top - SST (02/14/2017 11:59 AM EDT) Extra Tube Hold for add-ons. 02/14/2017 1:01 PM EDT [facility] Comment:Auto resulted. Blood Venipuncture / Unknown 02/14/2017 11:59 AM EDT 02/14/2017 12:13 PM EDT Jos Yoo MD LAB BLOOD ORDER ONLY Final Res ult Performing Organization Address City/[facility]/ZIP Co de Phone Number [facility]
[address] [place] [address], * Lavender Top (02/14/2017 11:59 AM EDT) Extra Tube hold for add-on 02/14/2017 1:01 PM EDT [facility] Comment:Auto resulted Blood Venipuncture / Unknown 02/14/2017 11:59 AM EDT 02/14/2017 12:13 PM EDT Jos Yoo MD LAB BLOOD ORDER ONLY Final Res ult Performing Organization Address [facility] Co de Phone Number [facility]
[address] [place] [address], * Green Top (Gel) (02/14/2017 11:59 AM EDT) Extra Tube Hold for add-ons. 02/14/2017 1:01 PM EDT [facility] Comment:Auto resulted. Blood Venipuncture / Unknown 02/14/2017 11:59 AM EDT 02/14/2017 12:13 PM EDT Jos Yoo MD LAB BLOOD ORDER ONLY Final Res ult Performing Organization Address City/[facility] Co de Phone Number [facility]
[address] [place] [address], * Light Blue Top (02/14/2017 11:59 AM EDT) Extra Tube hold for add-on 02/14/2017 1:01 PM EDT [facility] Comment:Auto resulted Blood Venipuncture / Unknown 02/14/2017 11:59 AM EDT 02/14/2017 12:13 PM EDT us Jos Yoo MD LAB BLOOD ORDER ONLY Final Res ult [facility]
[address] [place] [address], * (ABNORMAL) CBC Auto Differential (02/14/2017 11:59 AM EDT) WBC 15.84(H) 3.50 - 10.80 10*3/mm3 02/14/2017 12:22 PM EDT [facility] RBC 4.37 3.89 - 5.14 10*6/mm3 02/14/2017 12:22 PM EDT [facility] Hemoglobin 12.7 11.5 - 15.5 g/dL 02/14/2017 12:22 PM EDT [facility] Hematocrit 39.8 34.5 - 44.0 % 02/14/2017 12:22 PM EDT [facility] MCV 91.1 80.0 - 99.0 fL 02/14/2017 12:22 PM EDT [facility] MCH 29.1 27.0 - 31.0 pg 02/14/2017 12:22 PM EDT [facility] MCHC 31.9(L) 32.0 - 36.0 g/dL 02/14/2017 12:22 PM EDT [facility] RDW 13.7 11.3 - 14.5 % 02/14/2017 12:22 PM EDT [facility] RDW-SD 45.3 37.0 - 54.0 fl 02/14/2017 12:22 PM EDT [facility] MPV 11.5 6.0 - 12.0 fL 02/14/2017 12:22 PM EDT [facility] Platelets 175 150 - 450 10*3/mm3 02/14/2017 12:22 PM EDT [facility] Neutrophil % 77.8(H) 41.0 - 71.0 % 02/14/2017 12:22 PM EDT [facility] Lymphocyte % 14.5(L) 24.0 - 44.0 % 02/14/2017 12:22 PM EDT [facility] Monocyte % 6.9 0.0 - 12.0 % 02/14/2017 12:22 PM EDT [facility] Eosinophil % 0.4 0.0 - 3.0 % 02/14/2017 12:22 PM EDT [facility] Basophil % 0.2 0.0 - 1.0 % 02/14/2017 12:22 PM EDT [facility] Immature Grans % 0.2 0.0 - 0.6 % 02/14/2017 12:22 PM EDT [facility] Neutrophils, Absolute 12.32(H) 1.50 - 8.30 10*3/mm3 02/14/2017 12:22 PM EDT [facility] Lymphocytes, Absolute 2.29 0.60 - 4.80 10*3/mm3 02/14/2017 12:22 PM EDT [facility] Monocytes, Absolute 1.10(H) 0.00 - 1.00 10*3/mm3 02/14/2017 12:22 PM EDT [facility] Eosinophils, Absolute 0.07(L) 0.10 - 0.30 10*3/mm3 02/14/2017 12:22 PM EDT [facility] Basophils, Absolute 0.03 0.00 - 0.20 10*3/mm3 02/14/2017 12:22 PM EDT [facility] Immature Grans, Absolute 0.03 0.00 - 0.03 10*3/mm3 02/14/2017 12:22 PM EDT [facility] Blood Venipuncture / Unknown 02/14/2017 11:59 AM EDT 02/14/2017 12:13 PM EDT us Jos Yoo MD LAB BLOOD ORDERABLES Final Res ult [facility]
[address] [place] [address], * Lactic Acid, Plasma (02/14/2017 11:59 AM EDT) Lactate 0.9 0.5 - 2.0 mmol/L 02/14/2017 12:33 PM EDT [facility] Comment:Falsely depressed re sults may occur on samples drawn from patients receiving N-Acetylcysteine (NAC) or Metamizole. Blood Venipuncture / Unknown 02/14/2017 11:59 AM EDT 02/14/2017 12:12 PM EDT us Jos Yoo MD LAB BLOOD ORDERABLES Final Res ult [facility]
[address] [place] [address], * (ABNORMAL) Comprehensive Metabolic Panel (02/14/2017 11:59 AM EDT) Glucose 91 70 - 100 mg/dL 02/14/2017 12:41 PM EDT [facility] BUN 10 9 - 23 mg/dL 02/14/2017 12:41 PM EDT [facility] Creatinine 0.60 0.60 - 1.30 mg/dL 02/14/2017 12:41 PM EDT [facility] Sodium 138 132 - 146 mmol/L 02/14/2017 12:41 PM EDT [facility] Potassium 3.7 3.5 - 5.5 mmol/L 02/14/2017 12:41 PM EDT [facility] Chloride 112(H) 99 - 109 mmol/L 02/14/2017 12:41 PM EDT [facility] CO2 26.0 20.0 - 31.0 mmol/L 02/14/2017 12:41 PM EDT [facility] Calcium 9.4 8.7 - 10.4 mg/dL 02/14/2017 12:41 PM EDT [facility] Total Protein 7.5 5.7 - 8.2 g/dL 02/14/2017 12:41 PM EDT [facility] Albumin 4.40 3.20 - 4.80 g/dL 02/14/2017 12:41 PM EDT [facility] ALT (SGPT) 16 7 - 40 U/L 02/14/2017 12:41 PM EDT [facility] AST (SGOT) 17 0 - 33 U/L 02/14/2017 12:41 PM EDT [facility] Alkaline Phosphatase 87 25 - 100 U/L 02/14/2017 12:41 PM EDT [facility] Total Bilirubin 0.5 0.3 - 1.2 mg/dL 02/14/2017 12:41 PM EDT [facility] eGFR Non Amer 115 >60 mL/min/1.7 3 02/14/2017 12:41 PM EDT [facility] Globulin 3.1 gm/dL 02/14/2017 12:41 PM EDT [facility] A/G Ratio 1.4(L) 1.5 - 2.5 g/dL 02/14/2017 12:41 PM EDT [facility] BUN/Creatinine Ratio 16.7 7.0 - 25.0 02/14/2017 12:41 PM EDT [facility] Anion Gap 0.0(L) 3.0 - 11.0 mmol/L 02/14/2017 12:41 PM EDT [facility] Blood Venipuncture / Unknown 02/14/2017 11:59 AM EDT 02/14/2017 12:13 PM EDT [facility] - 02/14/2017 12:41 PM EDT National [employer] Guidelines Stage ? Description ?GFR 1 ? Normal or High ? 90+ 2 ? Mild decrease ?60-89 3 ? Moderate decrease ??30-59 4 ? Severe decrease ?15-29 5 ? Kidney failure ? <15 us Jos Yoo MD LAB BLOOD ORDERABLES Final Res ult [facility]
[address] [place] [address], documented in this encounter Visit Diagnoses Diagnosis Bartholin's gland abscess- Primary Abscess of Bartholin's gland Leukocytosis, unspecified type documented in this encounter Administered Medications Inactive Administered Medications - up to 3 most recent administrations Medication Order MAR Action Action Date Dose Rate Site cefTRIAXone (ROCEPHIN) IVPB 1 g 1 g, Intravenous, Administer over 30 Minutes, Once, On Tue02/14/17 at 1656, For 1 dose, Refrigerate, Indications: Skin and Soft Tissue InfectionIndications:Skin and Soft Tissue Infection New Bag 02/14/2017 4:59 PM EDT 1 g DAPTOmycin (CUBICIN) 500 mg in sodium chloride 0.9 % 50 mL IVPB 500 mg, Intravenous, at 100 mL/hr, Administer over 30 Minutes, Every 24 Hours Scheduled, First dose on Tue02/14/17 at 1600, Refrigerate. Do not shake. Do not infuse with other fluids or drugs., Reason for Therapy: Other, Indication for Therapy: cellulitis, Indications: Skin and Soft Tissue InfectionIndications:Skin and Soft Tissue Infection New Bag 02/14/2017 4:16 PM EDT 500 mg 100 mL/hr lidocaine PF 1% (XYLOCAINE) injection 20 mL 20 mL, Injection, Once, On Tue02/14/17 at 1344, For 1 dose, To bedside now - document actual dose when administered by physician. Given by Other 02/14/2017 2:17 PM EDT 20 mL LORazepam (ATIVAN) injection 0.5 mg 0.5 mg, Intravenous, Once, On Tue02/14/17 at 1512, For 1 dose Given 02/14/2017 3:46 PM EDT 0.5 mg Morphine sulfate (PF) injection 2 mg 2 mg, Intravenous, Once, On Tue02/14/17 at 1512, For 1 dose Given 02/14/2017 3:43 PM EDT 2 mg Morphine sulfate (PF) injection 2 mg 2 mg, Intravenous, Once, On Tue02/14/17 at 1711, For 1 dose Given 02/14/2017 5:56 PM EDT 2 mg Morphine sulfate (PF) injection 4 mg 4 mg, Intravenous, Once, On Tue02/14/17 at 1310, For 1 dose Given 02/14/2017 1:21 PM EDT 4 mg ondansetron (ZOFRAN) injection 4 mg 4 mg, Intravenous, Once, On Tue02/14/17 at 1310, For 1 dose Given 02/14/2017 1:19 PM EDT 4 mg sodium chloride 0.9 % bolus 1,000 mL 1,000 mL, Intravenous, Once, On Tue02/14/17 at 1310, For 1 dose New Bag 02/14/2017 1:16 PM EDT 1,000 mL sodium chloride 0.9 % flush 10 mL 10 mL, Intravenous, As Needed, Line Care, Starting on Tue02/14/17 at 1134 documented in this encounter Active and Recently Administered Medications Times are shown in EDT. Scheduled Medication Order 02/12/2017 02/13/2017 02/14/2017 cefTRIAXone (ROCEPHIN) IVPB 1 g (COMPLETED) 1 g, Intravenous, Administer over 30 Minutes, Once, On Tue02/14/17 at 1656, For 1 dose, Refrigerate, Indications: Skin and Soft Tissue Infection 1659 (New Bag - Prov ider: Jennie Hassan RN)1729 (Stopped - Provider: Jennie Hassan RN) DAPTOmycin (CUBICIN) 500 mg in sodium chloride 0.9 % 50 mL IVPB 500 mg, Intravenous, at 100 mL/hr, Administer over 30 Minutes, Every 24 Hours Scheduled, First dose on Tue02/14/17 at 1600, Refrigerate. Do not shake. Do not infuse with other fluids or drugs., Reason for Therapy: Other, Indication for Therapy: cellulitis, Indications: Skin and Soft Tissue Infection 1616 (New Bag - Prov ider: Jennie Hassan, WARREN)1646 (Stopped - Provider: Jennie Hassan RN - Comment: antibiotic finished infusing) lidocaine PF 1% (XYLOCAINE) injection 20 mL (COMPLETED) 20 mL, Injection, Once, On Tue02/14/17 at 1344, For 1 dose, To bedside now - document actual dose when administered by physician. 1417 (Given by Other - Provider: Jennie Hassan RN - Comment: PLACED AT BS FOR PA.) LORazepam (ATIVAN) injection 0.5 mg (COMPLETED) 0.5 mg, Intravenous, Once, On Tue02/14/17 at 1512, For 1 dose 1546 (Given - Provid er: Jennie Hassan RN) Morphine sulfate (PF) injection 2 mg (COMPLETED) 2 mg, Intravenous, Once, On Tue02/14/17 at 1512, For 1 dose 1543 (Given - Provid er: Jennie Hassan RN) Morphine sulfate (PF) injection 2 mg (COMPLETED) 2 mg, Intravenous, Once, On Tue02/14/17 at 1711, For 1 dose 1756 (Given - Provid er: Leodan Tolbert RN) Morphine sulfate (PF) injection 4 mg (COMPLETED) 4 mg, Intravenous, Once, On Tue02/14/17 at 1310, For 1 dose 1321 (Given - Provid er: Jennie Hassan RN) ondansetron (ZOFRAN) injection 4 mg (COMPLETED) 4 mg, Intravenous, Once, On Tue02/14/17 at 1310, For 1 dose 1319 (Given - Provid er: Jennie Hassan RN) sodium chloride 0.9 % bolus 1,000 mL (COMPLETED) 1,000 mL, Intravenous, Once, On Tue02/14/17 at 1310, For 1 dose 1316 (New Bag - Prov ider: Jennie Hassan RN)1501 (Stopped - Provider: Terrance Cueva) PRN Medication Order 02/12/2017 02/13/2017 02/14/2017 sodium chloride 0.9 % flush 10 mL 10 mL, Intravenous, As Needed, Line Care, Starting on Tue02/14/17 at 1134 documented in this encounter 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
--- OUTSIDE RECORDS SUMMARY | 2024-08-08 14:36 | XMS_ITS | Encounter Summary ---
Author Organization Healthcare Address [address] [place] [address] Care Team Providers Care Collaborating Supervising Physician Name Role Phone Unavailable Primary Care Provider Unavailabl e Encounter Details Date Type Department Care Team (Late st Contact Info) Description 02/06/2019 [facility] Encounter HISTORICAL OPHTHALMOLOGY [address] [place] [address] Luann Lawler S, OD [address] [address] Social History Tobacco Use Types [...]
--- OUTSIDE RECORDS SUMMARY | 2024-08-08 14:36 | XMS_ITS | Encounter Summary ---
Author Organization [facility] Address [address] [place] [id number] Care Team Providers Care Sports Clerk Name Role Phone Provider, No Known Primary Care Provider Unavail able Reason for Referral * Consultation (Routine) - Authorized Specialty Diagnoses / Procedures Referred By Tabatha plata Referred To Contact Cardiology Diagnoses Chest pain, unspecified type Palpitations Procedures SD OFFICE/OUTPATIENT NEW MODERATE MDM 45 MINUTES Raoul Nieto MD [address] [place] [address] Phone: tel: fax: [facility] [address] [address] Phone: tel: fax: Referral ID Status Reason Start Date Expiration Date Visits Requested Visits Authorized [id number] Authorized Specialty Services Required 4 07/24/2025 1 1 Reason for Visit * Reason Comments Chest Pain Encounter Details Date Type Department Care Team (Late st Contact Info) Description 07/24/2024 7:22 PM EST - 07/24/2024 10:51 PM EST Emergency [facility] EMERGENCY DEPARTMENT [address] [place] [address] Raoul Nieto MD [address] [place] [address] Chest pain, unspecified type (Primary Dx); Palpitations; Positive D dimer Discharge Disposition: Home or Self Care Social [...] Mass Index 32.44 07/24/2024 6:53 PM EST documented in this encounter Discharge Instructions * Discharge Instructions* Raoul Nieto MD - 07/24/2024 10:43 PM EST Use the provided medications to help with symptoms. Follow-up with your PCP. While today's workup was reassuring if symptoms change or worsen please return to the ED or seek other medical care. * Attachments The following attachments cannot be sent through Care Everywhere. * Nonspecific Chest Pain Adult Zybd-cz-Ovfy (Samoan) documented in this encounter Medications at Time of Discharge albuterol sulfate HFA 108 (90 Base) MCG/ACT inhaler Inhale 2 puffs Every 4 (Four) Hours As Needed for Wheezing. hydrOXYzine (ATARAX) 25 MG tablet Take 1 tablet by mouth 3 (Three) Times a Day As Needed for Anxiety. 12 tablet 07/24/2024 ibuprofen (ADVIL,MOTRIN) 600 MG tablet Take 1 tablet by mouth Every 6 (Six) Hours As Needed for Mild Pain. 20 tablet 07/24/2024 ondansetron ODT (ZOFRAN-ODT) [address] 1 tablet on the tongue 4 (Four) Times a Day As Needed for Nausea or Vomiting. 12 tablet 07/24/2024 documented as of this encounter ED Notes * Raoul Nieto MD - 07/24/2024 10:51 PM EST EMERGENCY DEPARTMENT ENCOUNTER Pt Name: Akua ALVARENGA Pt : 1985 Room Number: 07/23 Date of encounter: 07/24/2024 PCP: Provider, No Known ED Provider: Raoul Nieto MD Historian: Patient, spouse HPI: Chief Complaint: Chest pain Context: Akua ALVARENGA is a 38-year-old female who presents because of 7 hours of severe left-sided chest pain. 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 She has asthma but does not take any other medications she does have untreated ADHD. No other complaints at this time. PAST MEDICAL HISTORY Past Medical History: Diagnosis Date ADD (attention deficit disorder) Asthma Colitis PAST SURGICAL HISTORY Past Surgical History: Procedure Laterality Date TUBAL ABDOMINAL LIGATION FAMILY HISTORY History reviewed. No pertinent family history. SOCIAL HISTORY Social History Socioeconomic History Marital status: Tobacco Use Smoking status: Former Current packs/day: 0.00 Types: Cigarettes Quit date: 09/12/2011 Years since quittin.8 Substance and Sexual Activity Alcohol use: Yes Comment: OCCASIONAL Drug use: Yes Types: Marijuana ALLERGIES Patient has no known allergies. REVIEW OF SYSTEMS Review of Systems All systems reviewed and negative except for those discussed in HPI. PHYSICAL EXAM I have reviewed the triage vital signs and nursing notes. ED Triage Vitals [07/24/24 1853] Temp Heart Rate Resp BP SpO2 97.8 ??F (36.6 ??C) 82 18 (!) 179/112 99 % Temp src Heart Rate Source Patient Position BP Location FiO2 (%) Oral Monitor -- Left arm -- Physical Exam GENERAL: Appears in no acute distress. HENT: Nares patent. EYES: No scleral icterus. CV: Regular rhythm, regular rate. RESPIRATORY: Normal effort. No audible wheezes, rales or rhonchi. ABDOMEN: Soft, nontender MUSCULOSKELETAL: No deformities. NEURO: Alert, moves all extremities, follows commands. SKIN: Warm, dry, no rash visualized. LAB RESULTS Recent Results (from the past 24 hours) ECG 12 Lead ED Triage Standing Order; Chest Pain Collection Time: 07/24/24 6:58 PM Result Value Ref Range QT Interval 378 ms QTC Interval 446 ms High Sensitivity Troponin T Collection Time: 07/24/24 7:03 PM Specimen: Blood Result Value Ref Range HS Troponin T 7 <14 ng/L Comprehensive Metabolic Panel Collection Time: 07/24/24 7:03 PM Specimen: Blood Result Value Ref Range Glucose 86 65 - 99 mg/dL BUN 14 6 - 20 mg/dL Creatinine 0.80 0.57 - 1.00 mg/dL Sodium 135 (L) 136 - 145 mmol/L Potassium 3.7 3.5 - 5.2 mmol/L Chloride 100 98 - 107 mmol/L CO2 23.0 22.0 - 29.0 mmol/L Calcium 9.1 8.6 - 10.5 mg/dL Total Protein 7.4 6.0 - 8.5 g/dL Albumin 4.6 3.5 - 5.2 g/dL ALT (SGPT) 20 1 - 33 U/L AST (SGOT) 23 1 - 32 U/L Alkaline Phosphatase 94 39 - 117 U/L Total Bilirubin 0.2 0.0 - 1.2 mg/dL Globulin 2.8 gm/dL A/G Ratio 1.6 g/dL BUN/Creatinine Ratio 17.5 7.0 - 25.0 Anion Gap 12.0 5.0 - 15.0 mmol/L eGFR 95.7 >60.0 mL/min/1.73 Lipase Collection Time: 07/24/24 7:03 PM Specimen: Blood Result Value Ref Range Lipase 44 13 - 60 U/L BNP Collection Time: 07/24/24 7:03 PM Specimen: Blood Result Value Ref Range proBNP <36.0 0.0 - 450.0 pg/mL Green Top (Gel) Collection Time: 07/24/24 7:03 PM Result Value Ref Range Extra Tube Hold for add-ons. Lavender Top Collection Time: 07/24/24 7:03 PM Result Value Ref Range Extra Tube hold for add-on Gold Top - SST Collection Time: 07/24/24 7:03 PM Result Value Ref Range Extra Tube Hold for add-ons. Tirado Top Collection Time: 07/24/24 7:03 PM Result Value Ref Range Extra Tube Hold for add-ons. Light Blue Top Collection Time: 07/24/24 7:03 PM Result Value Ref Range Extra Tube Hold for add-ons. CBC Auto Differential Collection Time: 07/24/24 7:03 PM Specimen: Blood Result Value Ref Range WBC 10.31 3.40 - 10.80 10*3/mm3 RBC 4.31 3.77 - 5.28 10*6/mm3 Hemoglobin 12.5 12.0 - 15.9 g/dL Hematocrit 37.7 34.0 - 46.6 % MCV 87.5 79.0 - 97.0 fL MCH 29.0 26.6 - 33.0 pg MCHC 33.2 31.5 - 35.7 g/dL RDW 13.3 12.3 - 15.4 % RDW-SD 42.9 37.0 - 54.0 fl MPV 10.9 6.0 - 12.0 fL Platelets 294 140 - 450 10*3/mm3 Neutrophil % 58.1 42.7 - 76.0 % Lymphocyte % 31.7 19.6 - 45.3 % Monocyte % 7.0 5.0 - 12.0 % Eosinophil % 2.0 0.3 - 6.2 % Basophil % 0.8 0.0 - 1.5 % Immature Grans % 0.4 0.0 - 0.5 % Neutrophils, Absolute 5.99 1.70 - 7.00 10*3/mm3 Lymphocytes, Absolute 3.27 (H) 0.70 - 3.10 10*3/mm3 Monocytes, Absolute 0.72 0.10 - 0.90 10*3/mm3 Eosinophils, Absolute 0.21 0.00 - 0.40 10*3/mm3 Basophils, Absolute 0.08 0.00 - 0.20 10*3/mm3 Immature Grans, Absolute 0.04 0.00 - 0.05 10*3/mm3 nRBC 0.0 0.0 - 0.2 /100 WBC D-dimer, Quantitative Collection Time: 07/24/24 7:03 PM Specimen: Blood Result Value Ref Range D-Dimer, Quantitative 0.70 (H) 0.00 - 0.50 MCGFEU/mL Acetaminophen Level Collection Time: 07/24/24 7:03 PM Specimen: Blood Result Value Ref Range Acetaminophen <5.0 0.0 - 30.0 mcg/mL Ethanol Collection Time: 07/24/24 7:03 PM Specimen: Blood Result Value Ref Range Ethanol <10 0 - 10 mg/dL Salicylate Level Collection Time: 07/24/24 7:03 PM Specimen: Blood Result Value Ref Range Salicylate <0.3 <=30.0 mg/dL Magnesium Collection Time: 07/24/24 7:03 PM Specimen: Blood Result Value Ref Range Magnesium 2.0 1.6 - 2.6 mg/dL TSH Collection Time: 07/24/24 7:03 PM Specimen: Blood Result Value Ref Range TSH 3.670 0.270 - 4.200 uIU/mL COVID-19, FLU A/B, RSV PCR 1 HR TAT - Swab, Nasopharynx Collection Time: 07/24/24 7:59 PM Specimen: Nasopharynx; Swab Result Value Ref Range COVID19 Not Detected Not Detected - Ref. Range Influenza A PCR Not Detected Not Detected Influenza B PCR Not Detected Not Detected RSV, PCR Not Detected Not Detected High Sensitivity Troponin T 2Hr Collection Time: 07/24/24 8:00 PM Specimen: Blood Result Value Ref Range HS Troponin T <6 <14 ng/L Troponin T Delta , Urine - Urine, Clean Catch Collection Time: 07/24/24 8:17 PM Specimen: Urine, Clean Catch Result Value Ref Range HCG, Urine QL Negative Negative Urinalysis With Microscopic If Indicated (No Culture) - Urine, Clean Catch Collection Time: 07/24/24 8:17 PM Specimen: Urine, Clean Catch Result Value Ref Range Color, UA Yellow Yellow, Straw Appearance, UA Clear Clear pH, UA 5.5 5.0 - 8.0 Specific Valentines, UA 1.015 1.001 - 1.030 Glucose, UA Negative Negative Ketones, UA Negative Negative Bilirubin, UA Negative Negative Blood, UA Moderate (2+) (A) Negative Protein, UA Negative Negative Leuk Esterase, UA Negative Negative Nitrite, UA Negative Negative Urobilinogen, UA 0.2 E.U./dL 0.2 - 1.0 E.U./dL Urine Drug Screen - Urine, Clean Catch Collection Time: 07/24/24 8:17 PM Specimen: Urine, Clean Catch Result Value Ref Range THC, Screen, Urine Positive (A) Negative Phencyclidine (PCP), Urine Negative Negative Cocaine Screen, Urine Negative Negative Methamphetamine, Ur Negative Negative Opiate Screen Negative Negative Amphetamine Screen, Urine Negative Negative Benzodiazepine Screen, Urine Negative Negative Tricyclic Antidepressants Screen Negative Negative Methadone Screen, Urine Negative Negative Barbiturates Screen, Urine Negative Negative Oxycodone Screen, Urine Negative Negative Buprenorphine, Screen, Urine Negative Negative Fentanyl, Urine - Urine, Clean Catch Collection Time: 07/24/24 8:17 PM Specimen: Urine, Clean Catch Result Value Ref Range Fentanyl, Urine Negative Negative Urinalysis, Microscopic Only - Urine, Clean Catch Collection Time: 07/24/24 8:17 PM Specimen: Urine, Clean Catch Result Value Ref Range RBC, UA 3-5 (A) None Seen, 0-2 /HPF WBC, UA 0-2 None Seen, 0-2 /HPF Bacteria, UA None Seen None Seen, Trace /HPF Squamous Epithelial Cells, UA 0-2 None Seen, 0-2 /HPF Hyaline Casts, UA None Seen 0 - 6 /LPF Methodology Automated Microscopy ECG 12 Lead ED Triage Standing Order; Chest Pain Collection Time: 07/24/24 8:47 PM Result Value Ref Range QT Interval 426 ms QTC Interval 462 ms If labs were ordered, I independently reviewed the results and considered them in treating the patient. RADIOLOGY CT Angiogram Chest Pulmonary Embolism Result Date: 07/24/2024 CT ANGIOGRAM CHEST PULMONARY EMBOLISM Date of Exam: 07/24/2024 9:23 PM EST Indication: Severe pleuritic left-sided chest pain, positive dimer. Comparison: None available. Technique: Axial CT images were obtained of the chest after the uneventful intravenous administration of 80 cc Isovue-370 utilizing pulmonary embolism protocol. Reconstructed coronal and sagittal images were also obtained. Automated exposure control and iterative construction methods were used. Findings: Pulmonary arteries:Adequate opacification of the pulmonary arteries. No evidence of acute pulmonary embolism. Aorta: Unremarkable. Lungs and Pleura: The lungs are clear. No pleural effusion or pneumothorax. The airways arepatent. Mediastinum/Nelia: No lymphadenopathy. No suspicious mass. Heart: Normal in size. No pericardial effusion. Normal RV/LV ratio. Soft Tissue: Unremarkable. Upper Abdomen: Unremarkable. Bones: Noacute osseous abnormality. Impression: No pulmonary embolism. No acute intrathoracic abnormality. Electronically Signed: DO Elvin 07/24/2024 9:39 PM EST Workstation ID: [id number] XR Chest 1 View Result Date: 07/24/2024 XR CHEST 1 VW Date of Exam: 07/24/2024 7:28 PM EST Indication: Chest Pain Triage Protocol Comparison: None available. Findings: No focal consolidation. No pneumothorax or pleural effusion. Cardiac size is normal. The visualized clavicles appear intact. No displaced rib fractures. The visualized upper abdomen is normal. Impression: No acute cardiopulmonary disease. Electronically Signed: Marciano Nowak MD 07/24/2024 7:40 PM EST Workstation ID: [id number] I ordered and independently reviewed the above noted radiographic studies. I viewed images of chest x-ray which showed no acute pathology that I can appreciate per my independent interpretation. CTA of the chest does not show pulmonary embolism or aortic injury or other acute pathology that I can appreciate See radiologist's dictation for official interpretation. PROCEDURES Procedures ECG 12 Lead ED Triage Standing Order; Chest Pain Preliminary Result Test Reason : ED Triage Standing Order~ [...] (Unconfirmed) premature atrial complexes are now present Referred By: Confirmed By: ECG 12 Lead ED Triage Standing Order; Chest Pain Preliminary Result Test Reason : ED Triage Standing Order~ Blood Pressure : */* mmHG Vent. Rate : 84 BPM Atrial Rate : 84 BPM P-R Int : 142 ms QRS Dur : 84 ms QT Int : 378 ms P-R-T Axes : 47 8 15 degrees QTcB Int : 446 ms Normal sinus rhythm Cannot rule out Anterior infarct , age undetermined Abnormal ECG No previous ECGs available Referred By: EDMD Confirmed By: MEDICATIONS GIVEN IN ER Medications aspirin chewable tablet 324 mg (324 mg Oral Given 07/24/242014) ondansetron (ZOFRAN) injection 4 mg (4 mg Intravenous Given 07/24/242014) ketorolac (TORADOL) injection 15 mg (15 mg Intravenous Given 07/24/242014) iopamidol (ISOVUE-370) 76 % injection 100 mL (80 mL Intravenous Given 07/24/242125) MEDICAL DECISION MAKING, PROGRESS, and CONSULTS All labs, if obtained, have been independently reviewed by me. All radiology studies, if obtained, have been reviewed by me and the radiologist dictating the report. All EKG's, if obtained, have beenindependently viewed and interpreted by me/my attending physician. Discussion below represents my analysis of pertinent findings related to patient's condition, differential diagnosis, treatment plan and final disposition. HEART Score: 2 Differential diagnosis: Myocardial infarction, angina, pulmonary embolism, aortic dissection, pneumonia, pneumothorax, anemia, electrolyte abnormality Additional sources: - Discussed/ obtained information from independent historians: Spouse - External (non-ED) record review: Patient note from [facility] from 2019 showing history of Crohn's disease, asthma, overweight - Chronic or social conditions impacting care: Orders placed during this visit: Orders Placed This Encounter Procedures COVID PRE-OP / PRE-PROCEDURE SCREENING ORDER (NO ISOLATION) - Swab, Nasopharynx COVID-19, FLU A/B, RSV PCR 1 HR TAT - Swab, Nasopharynx XR Chest [address] Angiogram Chest Pulmonary Embolism [place] Draw High Sensitivity Troponin T Comprehensive Metabolic Panel Lipase BNP CBC Auto Differential , Urine - Urine, Clean Catch Urinalysis With Microscopic If Indicated (No Culture) - Urine, Clean Catch D-dimer, Quantitative Acetaminophen Level Ethanol Urine Drug Screen - Urine, Clean Catch Salicylate Level Magnesium TSH High Sensitivity Troponin T 2Hr Fentanyl, Urine - Urine, Clean Catch Urinalysis, Microscopic Only - Urine, Clean Catch Ambulatory Referral to [facility] - Chest Pain Clinic Undress & Gown Continuous Pulse Oximetry Monitor Blood Pressure ECG 12 Lead ED Triage Standing Order; Chest Pain CBC & Differential Green Top (Gel) Lavender Top Gold Top - SST Tirado Top Light Blue Top Additional orders considered but not ordered: ED Course: Consultants: ED Course as of 07/25/244 Tue Jul 24, 2024 1914 This a 38-year-old female who presents because of 7 hours of severe left- sided chest pain. 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 She has asthma but does not take any other medications she does have untreated ADHD. No other complaints at this time. [CC] 2226 She arrived awake and alert mildly anxious appearing but in no acute distress initial ECG borderline criteria for anterior Q waves but no acute ischemic pathology. CBC and CMP reassuring and nonactionable D-dimer was slightly elevated at 0.7 so CTA of the chest was added on which fortunately did not show pulmonary embolism or any other pathology. No elevation in high-sensitivity troponin Normal thyroid function There are 3-5 reds in her urinalysis she says she is menstruating and denies dysuria. UDS only positive for THC which I do not think is causing her palpitations. She was sleeping upon reevaluation feeling much better we discussed the workup we discussed less dangerous causes of chest pain such as pl euritis, costochondritis, [CC] Wed Jul 25, 20242 She is agreeable to discharge with follow-up given chest pain clinic referral. Counseled on return precaution verbally expressed understanding of these. [CC] ED Course User Index [CC] Raoul Nieto MD Shared Decision Making: After my consideration of clinical presentation and any laboratory/radiology studies obtained, I discussed the findings with the patient/patient wholesale representative who is in agreement with the treatment plan and the final disposition. Risks and benefits of discharge and/or observation/admission were discussed. OF 02:14 EST VITALS: BP - 127/81 HR - 63 TEMP - 97.8 ??F (36.6 ??C) (Oral) O2 SATS - 94% DIAGNOSIS Final diagnoses: Chest pain, unspecified type Palpitations Positive D dimer DISPOSITION DISCHARGE Patient discharged in stable condition. Reviewed implications of results, diagnosis, meds, responsibility to follow up, warning signs and symptoms of possible worsening, potential complications and reasons to return to ER. Patient/Family voiced understanding of above instructions. Discussed plan for discharge, as there is no emergent indication for admission. Pt/family is agreeable and understands need for follow up and possible repeat testing. Pt/family is aware that discharge does not mean that nothing is wrong but that it indicates no emergency is currently present that requires admission and they must continue care with follow-up as given below or with a physician of their choice. FOLLOW-UP [facility] [address] [facility] [place] [id number] PATIENT CONNECTION - [place] [phone] Call If you need to establish with a PCP. Medication List New Prescriptions hydrOXYzine 25 MG tablet Commonly known as: ATARAX Take 1 tablet by mouth 3 (Three) Times a Day As Needed for Anxiety. ibuprofen 600 MG tablet Commonly known as: ADVIL,MOTRIN Take 1 tablet by mouth Every 6 (Six) Hours As Needed for Mild Pain. ondansetron ODT 4 MG disintegrating tablet Commonly known as: ZOFRAN-ODT Place 1 tablet on the tongue 4 (Four) Times a Day As Needed for Nausea or Vomiting. Where to Get Your Medications These medications were sent to [facility] [address] [place] [address] [phone] [facility] [phone] [address] hydrOXYzine 25 MG tablet ibuprofen 600 MG tablet ondansetron ODT 4 MG disintegrating tablet Please note that portions of this document were completed with voice recognition software. Raoul Nieto MD 07/25/24 0214 documented in this encounter Plan of Treatment Scheduled Referrals Name Type Priority Associated Diagnoses Orde r Schedule Ambulatory Referral to [facility] - Chest Pain Clinic Outpatient Referral Routine Chest pain, unspecified type Palpitations Ordered: 07/24/2024 documented as of this encounter Procedures Procedure Name Priority Date/Time Associated Diagnosis Comments CT ANGIOGRAM CHEST PULMONARY EMBOLISM STAT 07/24/2024 9:25 PM EST ECG 12-LEAD STAT 07/24/2024 8:47 PM EST URINALYSIS, MICROSCOPIC ONLY STAT 07/24/2024 8:17 PM EST URINALYSIS W/ MICROSCOPIC IF INDICATED (NO CULTURE) STAT 07/24/2024 8:17 PM EST URINE DRUG SCREEN STAT 07/24/2024 8:1 7 PM EST , URINE STAT 07/24/2024 8:17 PM EST FENTANYL, URINE STAT 07/24/2024 8:17 PM EST HIGH SENSITIVITIY TROPONIN T 2HR STAT 07/24/2024 8:00 PM EST COVID-19/FLUA&B/RSV, [employer]IST SWAB IN TRANSPORT MEDIA 1 HR TAT STAT 07/24/2024 7:59 PM EST COVID PRE-OP / PRE-PROCEDURE SCREENING ORDER (NO ISOLATION) STAT 07/24/2024 7:59 PM EST XR CHEST 1 VW STAT 07/24/2024 7:38 PM EST TIRADO TOP STAT 07/24/2024 7:03 PM EST GOLD TOP - SST STAT 07/24/2024 7:03 PM EST DK GREEN TOP STAT 07/24/2024 7:03 PM EST CBC WITH AUTO DIFFERENTIAL STAT 07/24/2024 7:03 PM EST LAVENDER TOP STAT 07/24/2024 7:03 PM EST LIGHT BLUE TOP STAT 07/24/2024 7:03 PM EST RAINBOW DRAW STAT 07/24/2024 7:03 PM EST TROPONIN STAT 07/24/2024 7:03 PM EST D-DIMER, QUANTITATIVE STAT 07/24/2024 7:03 PM EST CBC AND DIFFERENTIAL STAT 07/24/2024 7:03 PM EST TSH STAT 07/24/2024 7:03 PM EST B-TYPE NATRIURETIC PEPTIDE STAT 07/24/2024 7:03 PM EST MAGNESIUM STAT 07/24/2024 7:03 PM EST LIPASE STAT 07/24/2024 7:03 PM EST ETHANOL STAT 07/24/2024 7:03 PM EST ACETAMINOPHEN LEVEL STAT 07/24/2024 7 :03 PM EST SALICYLATE LEVEL STAT 07/24/2024 7:03 PM EST COMPREHENSIVE METABOLIC PANEL STAT 07/24/2024 7:03 PM EST ECG 12-LEAD STAT 07/24/2024 6:58 PM EST documented in this encounter Results * CT Angiogram Chest Pulmonary Embolism (07/24/2024 9:25 PM EST) Anatomical Region Laterality Modality Chest N/A Computed Tomogra phy 07/24/2024 9:33 PM EST Impressions 07/24/2024 9:39 PM EST Impression: No pulmonary embolism. No acute intrathoracic abnormality. Electronically Signed: Sanjiv Gomes DO 07/24/2024 9:39 PM EST Workstation ID: [id number] 07/24/2024 9:[address] ANGIOGRAM CHEST [...] No acute osseous abnormality. Procedure Note Sanjiv Gomes, - 07/24/2024 CT ANGIOGRAM CHEST PULMONARY EMBOLISM [...] DO 07/24/2024 9:39 PM EST Workstation ID: [id number] Raoul Nieto MD [facility] CT ORDERABLES Final Result * ECG 12 Lead ED Triage Standing Order; Chest Pain (07/24/2024 8:47 PM EST) QT Interval 426 ms ECG QTC Interval [...] Nieto MD ECG ORDERABLES Final Re sult ECG * (ABNORMAL) Urinalysis, Microscopic Only - Urine, Clean Catch (07/24/2024 8:17 PM EST) RBC, UA 3-5(A) None Seen, 0-2 /HPF 07/24/2024 8:28 PM EST [facility] WBC, UA 0-2 None Seen, 0-2 /HPF 07/24/2024 8:28 PM EST [facility] Bacteria, UA None Seen None Seen, Trace /HPF 07/24/2024 8:28 PM EST [facility] Squamous Epithelial Cells, UA 0-2 None Seen, 0-2 /HPF 07/24/2024 8:28 PM EST [facility] Hyaline Casts, UA None Seen 0 - 6 /LPF 07/24/2024 8:28 PM EST [facility] Methodology Automated Microscopy 07/24/2024 8:28 PM EST [facility] Urine Urine specimen obtained by clean catch procedure / Unknown Collection / Unknown 07/24/2024 8:17 PM EST 07/24/2024 8:22 PM EST Raoul Nieto MD URINE ORDERABLES Final R esult Performing Organization Address City/[facility]/[employer] Co de Phone Number [facility]
[address] [place] [address], * Fentanyl, Urine - Urine, Clean Catch (07/24/2024 8:17 PM EST) Fentanyl, Urine Negative Negative 07/24/2024 8:44 PM EST [facility] Urine Urine specimen obtained by clean catch procedure / Unknown Collection / Unknown 07/24/2024 8:17 PM EST 07/24/2024 8:22 PM EST Narrative [facility] - 07/24/2024 8:44 PM EST Negative [...] Nieto MD URINE ORDERABLES Final R esult [facility]
[address] [place] [address], * (ABNORMAL) Urine Drug Screen - Urine, Clean Catch (07/24/2024 8:17 PM EST) [facility] THC, Screen, Urine Positive(A) Negative 07/24 8:34 PM EST [facility] [facility] Phencyclidine (PCP), Urine Negative Negative 07/24/2024 8:34 PM EST [facility] Cocaine Screen, Urine Negative Negative 07/24/2024 8:34 PM EST [facility] Methamphetamine, Ur Negative Negative 07/24/2024 8:34 PM EST [facility] Opiate Screen Negative Negative 07/24/2024 8:34 PM EST [facility] Amphetamine Screen, Urine Negative Negative 07/24/2024 8:34 PM EST [facility] Benzodiazepine Screen, Urine Negative Negative 07/24/2024 8:34 PM EST [facility] Tricyclic Antidepressants Screen Negative Negative 07/24/2024 8:34 PM EST [facility] Methadone Screen, Urine Negative Negative 07/24/2024 8:34 PM EST [facility] Barbiturates Screen, Urine Negative Negative 07/24/2024 8:34 PM EST [facility] Oxycodone Screen, Urine Negative Negative 07/24/2024 8:34 PM EST [facility] Buprenorphine, Screen, Urine Negative Negative 07/24/2024 8:34 PM [facility] Urine Urine specimen obtained by clean catch procedure / Unknown Collection / Unknown 07/24/2024 8:17 PM EST 07/24/2024 8:22 PM EST [facility] LAB[facility] - 07/24/2024 8:34 PM EST Cutoff [...] Nieto MD URINE ORDERABLES Final R esult [facility]
[address] [place] [address], * (ABNORMAL) Urinalysis With Microscopic If Indicated (No Culture) - Urine, Clean Catch (07/24/2024 8:17 PM EST) Color, UA Yellow Yellow, Straw 07/24/2024 8:27 PM EST [facility] Appearance, UA Clear Clear 07/24/2024 8:27 PM EST [facility] pH, UA 5.5 5.0 - 8.0 07/24/2024 8:27 PM EST [facility] Specific Valentines, UA 1.015 1.001 - 1.030 07/24/2024 8:27 PM EST [facility] Glucose, UA Negative Negative 07/24/2024 8:27 PM EST [facility] Ketones, UA Negative Negative 07/24/2024 8:27 PM EST [facility] Bilirubin, UA Negative Negative 07/24/2024 8:27 PM EST [facility] Blood, UA Moderate (2+)(A) Negative 07/24/2024 8:27 PM EST [facility] Protein, UA Negative Negative 07/24/2024 8:27 PM EST [facility] Leuk Esterase, UA Negative Negative 07/24/2024 8:27 PM EST [facility] Nitrite, UA Negative Negative 07/24/2024 8:27 PM EST [facility] Urobilinogen, UA 0.2 E.U./dL 0.2 - 1.0 E.U./dL 07/24/2024 8:27 PM EST [facility] Urine Urine specimen obtained by clean catch procedure / Unknown Collection / Unknown 07/24/2024 8:17 PM EST 07/24/2024 8:22 PM EST Raoul Nieto MD URINE ORDERABLES Final R esult [facility]
[address] [place] [address], * , Urine - Urine, Clean Catch (07/24/2024 8:17 PM EST) HCG, Urine QL Negative Negative DISK DIFFUSION 07/24/2024 8:28 PM EST [facility] Urine Urine specimen obtained by clean catch procedure / Unknown Collection / Unknown 07/24/2024 8:17 PM EST 07/24/2024 8:22 PM EST Raoul Nieto MD URINE ORDERABLES Final R esult [facility]
[address] [place] [address], * High Sensitivity Troponin T 2Hr (07/24/2024 8:00 PM EST) [facility] HS Troponin T <6 <14 ng/L 07/24/2024 8:26 PM EST [facility] Troponin T Delta 07/24/2024 8:26 PM EST [facility] Comment:Unable to calculate. Blood Venipuncture / Unknown 07/24/2024 8:00 PM EST 07/24/2024 8:05 PM EST [facility] LABORATORY - 07/24/2024 8:26 PM EST High [...] MD LAB BLOOD ORDERABLES Fin al Result [facility]
[address] [place] [address], * COVID-19, FLU A/B, RSV PCR 1 HR TAT - Swab, Nasopharynx (07/24/2024 7:59 PM EST) [facility] COVID19 Not Detected Not Detected - Ref. Range CEPHEID GENEXPERT 07/24/2024 8:50 PM EST [facility] Influenza A PCR Not Detected Not Detected CEPHEID GENEXPERT 07/24/2024 8:50 PM EST [facility] Influenza B PCR Not Detected Not Detected CEPHEID GENEXPERT 07/24/2024 8:50 PM EST [facility] RSV, PCR Not Detected Not Detected CEPHEID GENEXPERT 07/24/2024 8:50 PM EST [facility] Swab Nasopharyngeal structure / Unknown Collection / Unknown 07/24/2024 7:59 PM EST 07/24/2024 8:07 PM EST Narrative [facility] - 07/24/2024 8:50 PM EST Fact sheet for providers: https://www.fda.gov/media/263078/download ?? Fact sheet for patients: https://www.fda.gov/media/947586/download Test performed by PCR. us Raoul Nieto MD MICROBIOLOGY - GENERAL O RDERABLES Final Result [facility]
[address] [place] [address], * XR Chest 1 View (07/24/2024 7:38 PM EST) Anatomical Region Laterality Modality Body N/A Radiographic Anne Marie ging 07/24/2024 7:40 PM EST Impressions 07/24/2024 7:40 PM EST Impression: No acute cardiopulmonary disease. Electronically Signed: Marciano Nowak MD 07/24/2024 7:40 PM EST Workstation ID: [id number] Narrative 07/24/2024 7:40 PM EST XR CHEST [...] MD 07/24/2024 7:40 PM EST Workstation ID: [id number] Raoul Nieto MD IMG DIAGNOSTIC IMAGING O RDERABLES Final Result * TSH (07/24/2024 7:03 PM EST) Pathologist [facility] TSH 3.670 0.270 - 4.200 uIU/mL 07/24/2024 7:58 PM EST [facility] Blood Venipuncture / Unknown 07/24/2024 7:03 PM EST 07/24/2024 7:23 PM EST Raoul Nieto MD LAB BLOOD ORDERABLES Fin al Result [facility]
[address] [place] [address], * Magnesium (07/24/2024 7:03 PM EST) [facility] Magnesium 2.0 1.6 - 2.6 mg/dL 07/24/2024 7:52 PM EST [facility] Blood Venipuncture / Unknown 07/24/2024 7:03 PM EST 07/24/2024 7:23 PM EST Raoul Nieto MD LAB BLOOD ORDERABLES Fin al Result [facility]
[address] [place] [address], * Salicylate Level (07/24/2024 7:03 PM EST) Pathologist [facility] Salicylate <0.3 <=30.0 mg/dL 07/24/2024 7:54 PM EST [facility] Blood Venipuncture / Unknown 07/24/2024 7:03 PM EST 07/24/2024 7:23 PM EST Raoul Nieto MD LAB BLOOD ORDERABLES Fin al Result Performing Organization Address [facility] Co de Phone Number [facility]
[address] [place] [address], * Ethanol (07/24/2024 7:03 PM EST) Pathologist [facility] Ethanol <10 0 - 10 mg/dL 07/24/2024 7:52 PM EST [facility] Blood Venipuncture / Unknown 07/24/2024 7:03 PM EST 07/24/2024 7:23 PM EST Narrative [facility] - 07/24/2024 7:52 PM EST Elevated lactic acid concentration and lactate dehydrogenase(LD) activity may falsely elevate enzymatically determined ethanol levels. Not for legal purposes. Raoul Nieto MD LAB BLOOD ORDERABLES Fin al Result Performing Organization Address [facility] Phone Number [facility]
[address] [place] [address], * Acetaminophen Level (07/24/2024 7:03 PM EST) Pathologist [facility] Acetaminophen <5.0 0.0 - 30.0 mcg/mL 07/24/2024 7:54 PM EST [facility] Blood Venipuncture / Unknown 07/24/2024 7:03 PM EST 07/24/2024 7:23 PM EST Raoul Nieto MD LAB BLOOD ORDERABLES Fin al Result Performing Organization Address [facility] de Phone Number [facility]
[address] [place] [address], * (ABNORMAL) D-dimer, Quantitative (07/24/2024 7:03 PM EST) Pathologist [facility] D-Dimer, Quantitative 0.70(H) 0.00 - 0.50 MCGFEU/mL 07/24/2024 8:06 PM EST [facility] Blood Venipuncture / Unknown 07/24/2024 7:03 PM EST 07/24/2024 7:24 PM EST [facility] LABORATORY - 07/24/2024 8:06 PM EST According to the assay commercial energy auditor's published package insert, a normal (<0.50 MCGFEU/mL) D-dimer result in conjunction with a non-high clinical probability assessment, excludes deep vein thrombosis (DVT) and pulmonary embolism (PE) with high sensitivity. D-dimer values increase with age and this can make VTE exclusion of an older population difficult. To address this, the [employer], based on best available [...] and an 80 year old 0.80 MCGFEU/mL. us Raoul Nieto MD LAB BLOOD ORDERABLES Fin al Result [facility]
[address] [place] [address], * (ABNORMAL) CBC Auto Differential (07/24/2024 7:03 PM EST) Pathologist [facility] WBC 10.31 3.40 - 10.80 10*3/mm3 07/24/2024 7:29 PM [facility] RBC 4.31 3.77 - 5.28 10*6/mm3 07/24/2024 7:29 PM [facility] Hemoglobin 12.5 12.0 - 15.9 g/dL 07/24/2024 7:29 PM [facility] Hematocrit 37.7 34.0 - 46.6 % 07/24/2024 7:29 PM [facility] MCV 87.5 79.0 - 97.0 fL 07/24/2024 7:29 PM [facility] MCH 29.0 26.6 - 33.0 pg 07/24/2024 7:29 PM [facility] MCHC 33.2 31.5 - 35.7 g/dL 07/24/2024 7:29 PM [facility] RDW 13.3 12.3 - 15.4 % 07/24/2024 7:29 PM [facility] RDW-SD 42.9 37.0 - 54.0 fl 07/24/2024 7:29 PM [facility] MPV 10.9 6.0 - 12.0 fL 07/24/2024 7:29 PM [facility] Platelets 294 140 - 450 10*3/mm3 07/24/2024 7:29 PM [facility] Neutrophil % 58.1 42.7 - 76.0 % 07/24/2024 7:29 PM [facility] Lymphocyte % 31.7 19.6 - 45.3 % 07/24/2024 7:29 PM [facility] Monocyte % 7.0 5.0 - 12.0 % 07/24/2024 7:29 PM [facility] Eosinophil % 2.0 0.3 - 6.2 % 07/24/2024 7:29 PM [facility] Basophil % 0.8 0.0 - 1.5 % 07/24/2024 7:29 PM [facility] Immature Grans % 0.4 0.0 - 0.5 % 07/24/2024 7:29 PM [facility] Neutrophils, Absolute 5.99 1.70 - 7.00 10*3/mm3 07/24/2024 7:29 PM [facility] Lymphocytes, Absolute 3.27(H) 0.70 - 3.10 10*3/mm3 07/24/2024 7:29 PM [facility] Monocytes, Absolute 0.72 0.10 - 0.90 10*3/mm3 07/24/2024 7:29 PM EST [facility] Eosinophils, Absolute 0.21 0.00 - 0.40 10*3/mm3 07/24/2024 7:29 PM EST [facility] Basophils, Absolute 0.08 0.00 - 0.20 10*3/mm3 07/24/2024 7:29 PM EST [facility] Immature Grans, Absolute 0.04 0.00 - 0.05 10*3/mm3 07/24/2024 7:29 PM EST [facility] nRBC 0.0 0.0 - 0.2 /100 WBC 07/24/2024 7:29 PM EST [facility] Blood Venipuncture / Unknown 07/24/2024 7:03 PM EST 07/24/2024 7:24 PM EST Raoul Nieto MD LAB BLOOD ORDERABLES Fin al Result [facility]
[address] [place] [address], * Light Blue Top (07/24/2024 7:03 PM EST) Extra Tube Hold for add-ons. 07/24/2024 7:31 PM EST [facility] Comment:Auto resulted Blood Venipuncture / Unknown 07/24/2024 7:03 PM EST 07/24/2024 7:24 PM EST Raoul Nieto MD LAB BLOOD ORDER ONLY Fin al Result [facility]
[address] [place] [address], * Tirado Top (07/24/2024 7:03 PM EST) Extra Tube Hold for add-ons. 07/24/2024 7:31 PM EST [facility] Comment:Auto resulted. Blood Venipuncture / Unknown 07/24/2024 7:03 PM EST 07/24/2024 7:23 PM EST Raoul Nieto MD LAB BLOOD ORDER ONLY Fin al Result Performing Organization Address City/[facility]/ZIP Co de Phone Number [facility]
[address] [place] [address], [place] [phone] * Gold Top - SST (07/24/2024 7:03 PM EST) Extra Tube Hold for add-ons. 07/24/2024 7:31 PM EST [facility] Comment:Auto resulted. Blood Venipuncture / Unknown 07/24/2024 7:03 PM EST 07/24/2024 7:23 PM EST aRoul Nieto MD LAB BLOOD ORDER ONLY Fin al Result Performing Organization Address City/[facility]/ZIP Co de Phone Number [facility]
[address] [place] [address], [place] [phone] * Lavender Top (07/24/2024 7:03 PM EST) Extra Tube hold for add-on 07/24/2024 7:31 PM EST [facility] Comment:Auto resulted Blood Venipuncture / Unknown 07/24/2024 7:03 PM EST 07/24/2024 7:24 PM EST Raoul Nieto MD LAB BLOOD ORDER ONLY Fin al Result Performing Organization Address City/[facility]/ZIP Co de Phone Number [facility]
[address] [place] [address], [place] [phone] * Green Top (Gel) (07/24/2024 7:03 PM EST) Extra Tube Hold for add-ons. 07/24/2024 7:31 PM EST [facility] Comment:Auto resulted. Blood Venipuncture / Unknown 07/24/2024 7:03 PM EST 07/24/2024 7:23 PM EST us Raoul Nieto MD LAB BLOOD ORDER ONLY Fin al Result [facility]
[address] [place] [address], * BNP (07/24/2024 7:03 PM EST) proBNP <36.0 0.0 - 450.0 pg/mL 07/24/2024 8:03 PM EST [facility] Blood Venipuncture / Unknown 07/24/2024 7:03 PM EST 07/24/2024 7:23 PM EST Narrative [facility] - 07/24/2024 8:03 PM EST [...] ? Positive ?>1800 ?Tirado ?300-1800 ?Negative ?<300 Raoul Nieto MD LAB BLOOD ORDERABLES Fin al Result Performing Organization Address [facility] Co de Phone Number [facility]
[address] [place] [address], * Lipase (07/24/2024 7:03 PM EST) Pathologist [facility] Lipase 44 13 - 60 U/L 07/24/2024 7:52 PM EST [facility] Blood Venipuncture / Unknown 07/24/2024 7:03 PM EST 07/24/2024 7:23 PM EST Raoul Nieto MD LAB BLOOD ORDERABLES Fin al Result Performing Organization Address [facility] Co de Phone Number [facility]
[address] [place] [address], * (ABNORMAL) Comprehensive Metabolic Panel (07/24/2024 7:03 PM EST) Glucose 86 65 - 99 mg/dL 07/24/2024 7:52 PM EST [facility] BUN 14 6 - 20 mg/dL 07/24/2024 7:52 PM EST [facility] Creatinine 0.80 0.57 - 1.00 mg/dL 07/24/2024 7:52 PM EST [facility] Sodium 135(L) 136 - 145 mmol/L 07/24/2024 7:52 PM EST [facility] Potassium 3.7 3.5 - 5.2 mmol/L 07/24/2024 7:52 PM [facility] Comment:Slight hemolysis det ected by analyzer. Result may be falsely elevated. Chloride 100 98 - 107 mmol/L 07/24/2024 7:52 PM [facility] CO2 23.0 22.0 - 29.0 mmol/L 07/24/2024 7:52 PM [facility] Calcium 9.1 8.6 - 10.5 mg/dL 07/24/2024 7:52 PM [facility] Total Protein 7.4 6.0 - 8.5 g/dL 07/24/2024 7:52 PM [facility] Albumin 4.6 3.5 - 5.2 g/dL 07/24/2024 7:52 PM [facility] ALT (SGPT) 20 1 - 33 U/L 07/24/2024 7:52 PM [facility] AST (SGOT) 23 1 - 32 U/L 07/24/2024 7:52 PM [facility] Alkaline Phosphatase 94 39 - 117 U/L 07/24/2024 7:52 PM [facility] Total Bilirubin 0.2 0.0 - 1.2 mg/dL 07/24/2024 7:52 PM [facility] Globulin 2.8 gm/dL 07/24/2024 7:52 PM [facility] Comment:Calculated Result A/G Ratio 1.6 g/dL 07/24/2024 7:52 PM [facility] BUN/Creatinine Ratio 17.5 7.0 - 25.0 07/24/2024 7:52 PM [facility] Anion Gap 12.0 5.0 - 15.0 mmol/L 07/24/2024 7:52 PM [facility] eGFR 95.7 >60.0 mL/min/1.7 3 07/24/2024 7:52 PM [facility] Blood Venipuncture / Unknown 07/24/2024 7:03 PM EST 07/24/2024 7:23 PM EST [facility] - 07/24/2024 7:52 PM EST GFR Normal >60 Chronic Kidney Disease <60 Kidney Failure <15 Raoul Nieto MD LAB BLOOD ORDERABLES Fin al Result Performing Organization Address [facility] Co de Phone Number [facility]
[address] [place] [address], * High Sensitivity Troponin T (07/24/2024 7:03 PM EST) HS Troponin T 7 <14 ng/L 07/24/2024 7:58 PM EST [facility] Blood Venipuncture / Unknown 07/24/2024 7:03 PM EST 07/24/2024 7:23 PM EST [facility] - 07/24/2024 7:58 PM EST High [...] al Result Performing Organization Address [facility] Co de Phone Number [facility]
[address] [place] [address], * ECG 12 Lead ED Triage Standing Order; Chest Pain (07/24/2024 6:58 PM EST) QT Interval 378 ms ECG QTC Interval 446 ms ECG 07/24/2024 6:58 PM EST 07/27/2024 9:42 AM EST Narrative ECG - 07/27/2024 9:42 AM EST Test Reason : ED Triage Standing Order~ Blood Pressure : ?? */* ?? mmHG Vent. Rate : ??84 BPM ? Atrial Rate : ??84 BPM ?? P-R Int : 142 ms ?QRS Dur : ??84 ms ?QT Int : 378 ms ? P-R-T Axes : ??47 ?? 8 ??15 degrees ??QTcB Int : 446 ms Normal sinus rhythm Normal ECG No previous ECGs available Confirmed by RAOUL NIETO ([id number]) on 07/27/2024 9:42:01 AM Referred By: PRATEEK ? Confirmed By: RAOUL NIETO Procedure Note Raoul Nieto MD - 07/27/2024 Test Reason : ED Triage Standing Order~ Blood Pressure : */* mmHG Vent. Rate : 84 BPM Atrial Rate : 84 BPM P-R Int : 142 ms QRS Dur : 84 ms QT Int : 378 ms P-R-T Axes : 47 8 15 degrees QTcB Int : 446 ms Normal sinus rhythm Normal ECG No previous ECGs available Confirmed by RAOUL NIETO ([id number]) on 07/27/2024 9:42:01 AM Referred By: PRATEEK Confirmed By: RAOUL NIETO us Raoul Nieto MD ECG ORDERABLES Final [facility] documented in this encounter Visit Diagnoses Diagnosis Chest pain, unspecified type- Primary Palpitations Positive D dimer Abnormal coagulation profile documented in this encounter Administered Medications Inactive Administered Medications - up to 3 most recent administrations Medication Order MAR Action Action Date Dose Rate Site aspirin chewable tablet 324 mg 324 mg, Oral, Once, On Tue07/24/24 at 1910, For 1 dose, Herbal/drug interaction: Avoid use with ginkgo biloba. Based on patient request - if ordered for moderate or severe pain, provider allows for administration of a medication prescribed for a lower pain scale. Do not exceed 4 grams of aspirin in a 24 hr period. If given for pain, use the following pain scale: Mild Pain = Pain Score of 1-3, CPOT 1-2 Moderate Pain = Pain Score of 4-6, CPOT 3-4 Severe Pain = Pain Score of 7-10, CPOT 5-8, Indications: Chest pain protocolIndications:Chest pain protocol Given 07/24/2024 8:15 PM EST 324 mg iopamidol (ISOVUE-370) 76 % injection 100 mL 100 mL, Intravenous, Once in Imaging, On Tue07/24/24 at 2142, For 1 dose Given 07/24/2024 9:26 PM EST 80 mL ketorolac (TORADOL) injection 15 mg 15 mg, Intravenous, Once, On Tue07/24/24 at 1927, For 1 dose, {BKC} If given for pain, use the following pain scale: Mild Pain = Pain Score of 1-3, CPOT 1-2 Moderate Pain = Pain Score of 4-6, CPOT 3-4 Severe Pain = Pain Score of 7-10, CPOT 5-8 Given 07/24/2024 8:15 PM EST 15 mg ondansetron (ZOFRAN) injection 4 mg 4 mg, Intravenous, Once, On Tue07/24/24 at 1927, For 1 dose, If multiple N/V medications ordered, use in the following order: Ondansetron, Prochlorperazine, Promethazine. Use PO unless patient refuses or patient unable to swallow. Given 07/24/2024 8:15 PM EST 4 mg sodium chloride 0.9 % flush 10 mL 10 mL, Intravenous, As Needed, Line Care, Starting on Tue07/24/24 at 1854 documented in this encounter Active and Recently Administered Medications Times are shown in EST. Scheduled Medication Order 07/22/2024 07/23/2024 07/24/2024 aspirin chewable tablet 324 mg (COMPLETED) 324 mg, Oral, Once, On Tue07/24/24 at 1910, For 1 dose, Herbal/drug interaction: Avoid use with ginkgo biloba. Based on patient request - if ordered for moderate or severe pain, provider allows for administration of a medication prescribed for a lower pain scale. Do not exceed 4 grams of aspirin in a 24 hr period. If given for pain, use the following pain scale: Mild Pain = Pain Score of 1-3, CPOT 1-2 Moderate Pain = Pain Score of 4-6, CPOT 3-4 Severe Pain = Pain Score of 7-10, CPOT 5-8, Indications: Chest pain protocol 2014 (Given - Provid er: Laxmi Mayorga RN) iopamidol (ISOVUE-370) 76 % injection 100 mL (COMPLETED) 100 mL, Intravenous, Once in Imaging, On Tue07/24/24 at 2142, For 1 dose 2125 (Given - Provid er: Rod Timmons) ketorolac (TORADOL) injection 15 mg (COMPLETED) 15 mg, Intravenous, Once, On Tue07/24/24 at 1927, For 1 dose, {BKC} If given for pain, use the following pain scale: Mild Pain = Pain Score of 1-3, CPOT 1-2 Moderate Pain = Pain Score of 4-6, CPOT 3-4 Severe Pain = Pain Score of 7-10, CPOT 5-8 2014 (Given - Provid er: Laxmi Mayorga RN) ondansetron (ZOFRAN) injection 4 mg (COMPLETED) 4 mg, Intravenous, Once, On Tue07/24/24 at 1927, For 1 dose, If multiple N/V medications ordered, use in the following order: Ondansetron, Prochlorperazine, Promethazine. Use PO unless patient refuses or patient unable to swallow. 2014 (Given - Provid er: Laxmi Mayorga RN) PRN Medication Order 07/22/2024 07/23/2024 07/24/2024 sodium chloride 0.9 % flush 10 mL 10 mL, Intravenous, As Needed, Line Care, Starting on Tue07/24/24 at 1854 documented in this encounter Additional Health Concerns Infection Onset Date Last Indicated Resolved Time COVID Screen (preop/placement) 07/24/2024 07/24/2024 07/24/2024 8:50 PM EST documented as of this encounter Care Teams Sports Clerk Relationship Specialty Start Date End Date Provider, [place] [address] PCP - General 01/26/17 documented as of this encounter
--- OUTSIDE RECORDS SUMMARY | 2024-08-08 14:36 | XMS_ITS | Clinical Summary ---
Author Organization [facility] Address [address] [place] [address] Care Team Providers Care Distillery Supervisor Name Role Phone Pcp, No Primary Care Provider Unavailabl e Allergies No known active allergies Medications * This document contains information received from the source organization and may not represent a complete record from that organization. hydrOXYzine pamoate (Vistaril) 25 MG capsule Take 1 capsule (25 mg total) by mouth every 8 (eight) hours if needed for itching for up to 10 days. 30 capsule 09/15/2022 Active Immunizations Name Administration Dates Next Due Hep B, adult 12/08/2012,04/28/2012,03/30/2012 Influenza, Unspecified 08/30/2019,2017,08/03/2017,2015 Influenza, seasonal, injecta ble, preservative free 07/07/2012 Tdap 09/19/2018,04/05/2012 Family History Medical History Relation Name Comments Conversions - Other Other Known he alth problems: none Relation Name Status Comments Other Social History Tobacco Use Types Packs/Day Years [...] drink first t fatimah in the morning ([employer]) to steady your nerves or to get [...] Mass Index 29.18 09/15/2022 9:34 AM EST Plan of Treatment Health Maintenance Due Date Last Done Comments Dental Oral Exam 1983 Dental Prophylaxis 1983 Dental X-Ray: Bitewings 1983 Dental X-Ray: Full Mouth 1983 [facility]-Depression Screening 1983 [facility]-HIV Screening 1983 [facility]-Hepatitis C Screening 1983 [facility]-/Child/Adol SDOH Screenings 1983 [facility]-Obesity Intervention 11/17/1989 [facility]-Varicella Vaccines (1 of 2 - 13+ 2-dose series) 11/17/1996 [facility]- SDOH Screenings 11/17/2001 [facility]-Adult SDOH Screenings 11/17/2001 [facility]-Pap Smear 11/17/2004 [facility]-Cervical Cancer Screening 11/17/2013 [facility]-HPV/Cotest 11/17/2013 [id number] Vaccine ( season) 2024 05/12/2021 [facility]-Influenza Vaccine (#1) 05/13/202407/07, 08/30/2019, 08/10/2018, Additional history exists [facility]-DTaP,Tdap,and Td Vaccines (3 - Td or Tdap) 09/19/2028 09/19/2018, 04/05/2012 [facility]-Zoster Vaccines (1 of 2) 11/17/2033 [facility]-RSV Vaccine: 60+ Years or (1 - 1-dose 75+ series) 11/17/2058 [facility]-Hepatitis B Vaccines Completed 021, 12/08/2012, 04/28/2012, Additional history exists [facility]-HIB Vaccines Aged Out No longer e ligible based on patient's age to complete this topic [facility]-HPV Vaccines Aged Out No longer e ligible based on patient's age to complete this topic [facility]-Hepatitis A Vaccines Aged Out No longer eligible based on patient's age to complete this topic [facility]-IPV Vaccines Aged Out No longer e ligible based on patient's age to complete this topic [facility]-Pneumococcal Vaccine: Pediatrics (0 to 5 Years) and At-Risk Patients (6 to 64 Years) Aged Out No longer eligible based on patient's age to complete this topic [facility]-Rotavirus Vaccines Aged Out No lo nger eligible based on patient's age to complete this topic Care Teams Distillery Supervisor Relationship Specialty Start Date End Date Pcp, No [address] [place] [address] PCP - General Family Medicine 09/15/22
--- OUTSIDE RECORDS SUMMARY | 2024-08-08 14:36 | XMS_ITS | Encounter Summary ---
Author Organization [facility] Address [address] [place] [address] Care Team Providers Care It Technical Architect Name Role Phone Pcp, No Primary Care Provider Unavailabl e Encounter Details Date Type Department Care Team (Latest Contact Info) Description 09/15/2022 Travel Social History Tobacco Use Types Packs/Day [...] drink first t fatimah in the morning ([employer]) to steady your nerves or to get [...] AM EST documented as of this encounter Plan of Treatment Not on file documented as of this encounter Visit Diagnoses Not on filedocumented in this encounter Care Teams It Technical Architect Relationship Specialty Start Date End Date Pcp, Juhi [address] [place] [address] PCP - General Family Medicine 09/15/22 documented as of this encounter
--- OUTSIDE RECORDS SUMMARY | 2024-08-08 14:36 | XMS_ITS | Encounter Summary ---
Author Organization [facility] [employer] [facility] Address [address] [place] [id number] Care Team Providers Care Bog Cutter Name Role Phone Provider, No Known Primary Care Provider Unavail able Reason for Visit * Reason Comments Drug Screen Encounter Details Date Type Department Care Team (Late st Contact Info) Description 06/16/2017 2:30 PM EDT Office Visit [address] [phone] Encounter for drug screening (Primary Dx) Social History Tobacco Use Types Packs/Day Years [...] on file documented as of this encounter Progress Notes * Alma Rosa Valerio APRN - 06/16/2017 2:30 PM EDT Reason for Appointment 1. escreen History of Present Illness HPI: See scanned document. See custody control form. Assessments 1. Encounter for screening, unspecified - Z13.9 This document has been electronically signed by Alma Rosa Valerio APRN June 16, 2017 2:24 PM documented in this encounter Plan of Treatment Not on file documented as of this encounter Visit Diagnoses Diagnosis Encounter for drug screening- Primary documented in this encounter Care Teams Bog Cutter Relationship Specialty Start Date End Date Provider, No Known [facility] [place] [address] PCP - General 01/26/17 documented as of this encounter
[2024-08-08 15:01] VITALS: BP 122/71; PULSE 100; RESP 17; O2SAT 97
[2024-08-08 15:30] VITALS: BP 125/80; PULSE 89; RESP 13; O2SAT 96
[2024-08-08 16:13] LABS: HIV (1&2) Antibody Rapid NONREACTIVE (NONREACTIVE)
[2024-08-08 16:37] VITALS: BP 149/75; PULSE 90; RESP 18; TEMP 36.6; O2SAT 97
[2024-08-09 05:10] LABS: HCV Ab Non Reactive (Non Reactive)
== END 2024-08-08 16:38 | disposition home or self-care (01) ==
PROVIDERS: Emergency Provider Emergency Medicine
DX: J45.901 Unspecified asthma with (acute) exacerbation (principal); R06.02 Shortness of breath; R06.00 Dyspnea, unspecified
CPT/HCPCS: 86803; 87389; 93005; 99284